=== PATIENT | male | born 1960 | race Caucasian/White ===

== ENCOUNTER 2020-05-12 16:24 | Emergency (ER) | payer OTHER, MEDICAID, SELFPAY ==
[2020-05-12] VITALS (16 sets, daily range): BP systolic 97–132; BP diastolic 56–75; PULSE 63–86; RESP 10–25; TEMP 36.9; O2SAT 94–99; BMI 19.0
[2020-05-12 17:02] LABS: Bacteria Urine None Seen; RBC Urine None Seen (0-5/HPF); WBC Urine None Seen (0-5/HPF)
[2020-05-12 17:04] LABS: Appearance Urine UA CLEAR; Bilirubin Urine UA NEGATIVE (NEGATIVE); Color Urine UA YELLOW; Glucose Urine UA 3+ g/dL (Negative); Ketones Urine UA TRACE (NEGATIVE); Leukocyte Esterase Urine UA NEGATIVE (NEGATIVE); Nitrite Urine UA NEGATIVE (Negative); Occult Blood Urine UA NEGATIVE (Negative); Protein Urine UA NEGATIVE (Negative); Specific Gravity Urine UA <=1.005 (1.000-1.035); Urobilinogen Urine UA 0.2 E.U./dL (0.2)
--- NOTE | 2020-05-12 17:11 | PC.NURSE ---
Glucose was greater than 500
--- NOTE | 2020-05-12 17:12 | PC.NURSE ---
Glucose was greater than 500 on POC
[2020-05-12 17:19] LABS: Add Manual Diff / Slide Review NO; Basophils Absolute Auto 0 /uL (0-100); Basophils Percent Auto 0.7 % (0-2); Eosinophils Absolute Auto 0 /uL (0-450); Eosinophils Percent Auto 0.4 % (2-4); Hematocrit 35.6 % (41-53); Hemoglobin 12.1 g/dL (13.5-17.5); Lymphocytes Absolute Auto 1400 /uL (1100-4500); Lymphocytes Percent Auto 24.3 % (25-40); Mean Corpuscular HGB Conc 33.9 % (30-36); Mean Corpuscular Hemoglobin 34.1 PG (26-34); Mean Corpuscular Volume 100.6 fL (80-100); Monocytes Absolute Auto 600 /uL (0-900); Monocytes Percent Auto 9.9 % (3-14); Neutrophils Absolute Auto 3800 /uL (1500-7000); Neutrophils Percent Auto 64.7 % (50-75); Platelet Count 219 X10^3/uL (150-400); Red Blood Cell Count 3.54 X10^6/uL (4.5-5.9); Red Cell Distribution Width 13.7 % (11.6-14.8); White Blood Cell Count 5.8 X10^3/uL (4.5-11.0)
--- NOTE | 2020-05-12 17:19 | ED_ITS ---
HPI - General Adult General Chief complaint: Diabetic Problem Stated complaint: states high blood surgar Time Seen by Provider: 05/12/20 16:52 Source: patient Mode of arrival: Ambulatory Limitations: no limitations History of Present Illness HPI narrative: Patient is a 59-year-old diabetic male presenting with hyper glycemia. He had blood work done with his PCP he was at the [facility] when he received a phone call stating he go to the emergency department. His glucose at that time was 650 think about yesterday. He says that he has had a 45 lb weight loss over the last 2 years he is having polydipsia as well. He states that he is also eating a significant amount with out being able to keep any weight on. He says he is also short of breath will going upstairs, that is slightly from his legs being swollen he just gets weak and tired. He denies any chest pain he has no fever. He denies any productive cough Related Data Home Medications Medication Instructions Recorded Confirmed furosemide 20 mg PO QAM 05/12/20 05/12/20 glipizide 5 mg PO QAM 05/12/20 05/12/20 metformin 500 mg PO QID 05/12/20 05/12/20 nystatin 5 ml PO TID 05/12/20 05/12/20 potassium chloride 10 meq PO QAM 05/12/20 05/12/20 Allergies Allergy/AdvReac Type Severity Reaction Status Date / Time Tetanus Vaccines and Toxoid Allergy Unknown Verified 05/12/20 17:19 Review of Systems Review of Systems ROS Unobtainable: All systems reviewed & are unremarkable except as noted in HPI and below Constitutional Constitutional: Reports as per HPI, Denies anorexia, Denies frequent falls, Denies poor appetite, Denies weight gain and Reports weight loss Eyes Eyes: Denies change in vision, Denies eye discharge, Denies irritation and Denies loss of vision ENT Ears, Nose, Mouth, and Throat: Denies change in voice, Denies neck pain and Denies sore throat Cardiovascular Cardiovascular: Denies chest pain, Denies chest pain at rest, Reports dyspnea on exertion and Denies orthopnea Respiratory Respiratory: Denies cough and Reports dyspnea on exertion Gastrointestinal Gastrointestinal: Denies abdominal pain, Denies change in bowel habits, Denies diarrhea, Denies nausea and Denies vomiting Musculoskeletal Musculoskeletal: Denies back pain, Denies myalgias and Denies neck pain Integumentary/Breasts Skin/Breast: Denies pruritus, Denies erythema, Denies rash and Denies wounds Neurologic Neurologic: Denies frequent falls and Denies loss of vision Patient History Medical History Smoker (Acute) Type 2 diabetes mellitus (Acute) Social History Smoking Status: Current every day smoker Smoking Status: Current every day smoker Exam Initial Vital Signs Initial Vital Signs: Vital Signs Temperature 98.4 F 05/12/20 16:45 Pulse Rate 86 05/12/20 16:45 Respiratory Rate 16 05/12/20 16:45 Blood Pressure 105/58 L 05/12/20 16:45 Pulse Oximetry 95 05/12/20 16:45 GENERAL: Cachectic appearing male and in no acute distress. HEENT: Head atraumatic,EOMI, pupils reactive, face symmetric, moist mucous membranes CARDIOVASCULAR: Regular rate and rhythm without murmurs, rubs or gallops. RESPIRATORY: Breath sounds equal bilaterally, no wheezes rales or rhonchi. ABDOMEN: Soft, nontender. Normoactive bowel sounds all 4 quadrants. No guarding or rebound. No hepato or splenomegaly EXTREMITIES: Normal range of motion, no clubbing. Non pitting lower extremity edema bilateral Neurovascularly intact NEUROLOGICAL: Alert and oriented x4.Normal gait and speech. SKIN: Warm, dry, no laceration, no petechiae, no rashes or lesions. Course Orders Ordered: Discontinued Medications Sodium Chloride (Normal Saline 0.9%) 1,000 mls @ 1,000 mls/hr IV BOLUS ONE Stop: 05/12/20 18:11 Last Infusion: 05/12/20 21:08 Dose: 0 mls/hr Documented by: Admin: 05/12/20 17:22 Dose: 250 mls/hr Documented by: EZIO Insulin Human Regular (Humulin R) 10 unit SUBCUT NOW ONE Stop: 05/12/20 18:26 Last Admin: 05/12/20 18:32 Dose: 10 unit Documented by: MORRO Cosigned by: CHRISTEL Vital Signs Vital signs: Vital Signs - 8 hr 05/12/20 16:45 05/12/20 17:21 05/12/20 17:30 Temperature 98.4 F Pulse Rate 86 77 77 Respiratory Rate 16 12 14 Blood Pressure 105/58 L Pulse Oximetry 95 96 94 Medical Decision Making Lab Data Lab results reviewed: Yes I reviewed the patient's lab results. Result diagrams: 05/12/20 17:09 05/12/20 17:09 Labs: Lab Results 05/12/20 05/12/20 05/12/20 Range/Units 16:55 17:09 17:09 WBC 5.8 (4.5-11.0) X10^3/uL RBC 3.54 L (4.5-5.9) X10^6/uL Hgb 12.1 L (13.5-17.5) g/dL Hct 35.6 L (41-53) % MCV 100.6 H (80-100) fL MCH 34.1 H (26-34) PG MCHC 33.9 (30-36) % RDW 13.7 (11.6-14.8) % Plt Count 219 (150-400) X10^3/uL Neut % (Auto) 64.7 (50-75) % Lymph % (Auto) 24.3 L (25-40) % [place] % (Auto) 9.9 (3-14) % Eos % (Auto) 0.4 L (2-4) % Baso % (Auto) 0.7 (0-2) % Neut # (Auto) 3800 (0466-2885) /uL Lymph # (Auto) 1400 (3161-8558) /uL [place] # (Auto) 600 (0-900) /uL Eos # (Auto) 0 (0-450) /uL Baso # (Auto) 0 (0-100) /uL D-Dimer (<230) ng/mL VBG pH (7.33-7.43) VBG pCO2 (45-50) mmHg VBG pO2 (35-45) mmHg VBG HCO3 (23-28) mmol/L VBG Total CO2 (24-29) mmol/L VBG O2 Saturation (70-75) % VBG Base Excess (0-4) mmol/L Sodium 125 L (137-145) mmol/L Potassium 3.6 (3.4-5.1) mmol/L Chloride 87 L (98-107) mmol/L Carbon Dioxide 26 (22-32) mmol/L BUN 18 (9-20) mg/dL Creatinine 0.43 L (0.66-1.25) mg/dL Estimated GFR > 60.0 (>60) mL/min BUN/Creatinine Ratio 41.9 H (6-22) Glucose 775 H* (70-100) mg/dL Hemoglobin A1c (4.0-6.0) % Lactate (0.7-2.1) mmol/L Calcium 8.8 (8.4-10.2) mg/dL Total Bilirubin 0.7 (0.2-1.3) mg/dL AST 55 (17-59) IU/L ALT 60 H (<50) IU/L Alkaline Phosphatase 514 H (38-126) U/L Total Creatine Kinase (55-170) U/L CK-MB (CK-2) CK-MB (CK-2) Rel Index Troponin I (0.01-0.034) ng/mL NT-Pro-B Natriuret Pep (<125) pg/mL Total Protein 5.6 L (6.3-8.2) g/dL Albumin 3.1 L (3.5-5.0) g/dL Globulin 2.5 (1.7-4.1) g/dL Albumin/Globulin Ratio 1.2 (1.0-2.8) Lipase (23-300) U/L Procalcitonin (<0.5) ng/mL Urine Color Yellow Urine Appearance Clear Urine pH 6.0 (4.5-8.0) Ur Specific [place] <=1.005 (1.000-1.035) Urine Protein Negative (Negative) Urine Glucose (UA) 3+ H (Negative) g/dL Urine Ketones Trace H (NEGATIVE) Urine Occult Blood Negative (Negative) Urine Nitrate Negative (Negative) Urine Bilirubin Negative (NEGATIVE) Urine Urobilinogen 0.2 (0.2) E.U./dL Ur Leukocyte Esterase Negative (NEGATIVE) Urine RBC None seen (0-5/HPF) Urine WBC None seen (0-5/HPF) Ur Squamous Epith Cells 0-1 /hpf (0-5/HPF) Urine Bacteria None seen (None) Ur Culture Indicated? Cult not indicated Ketones 1.89 H (<0.27) mmol/L 05/12/20 05/12/2020 Range/Units 17:09 17:09 17:09 WBC (4.5-11.0) X10^3/uL RBC (4.5-5.9) X10^6/uL Hgb (13.5-17.5) g/dL Hct (41-53) % MCV (80-100) fL MCH (26-34) PG MCHC (30-36) % RDW (11.6-14.8) % Plt Count (150-400) X10^3/uL Neut % (Auto) (50-75) % Lymph % (Auto) (25-40) % [place] % (Auto) (3-14) % Eos % (Auto) (2-4) % Baso % (Auto) (0-2) % Neut # (Auto) (6552-8686) /uL Lymph # (Auto) (1573-6014) /uL [place] # (Auto) (0-900) /uL Eos # (Auto) (0-450) /uL Baso # (Auto) (0-100) /uL D-Dimer (<230) ng/mL VBG pH (7.33-7.43) VBG pCO2 (45-50) mmHg VBG pO2 (35-45) mmHg VBG HCO3 (23-28) mmol/L VBG Total CO2 (24-29) mmol/L VBG O2 Saturation (70-75) % VBG Base Excess (0-4) mmol/L Sodium (137-145) mmol/L Potassium (3.4-5.1) mmol/L Chloride (98-107) mmol/L Carbon Dioxide (22-32) mmol/L BUN (9-20) mg/dL Creatinine (0.66-1.25) mg/dL Estimated GFR (>60) mL/min BUN/Creatinine Ratio (6-22) Glucose (70-100) mg/dL Hemoglobin A1c (4.0-6.0) % Lactate 0.8 (0.7-2.1) mmol/L Calcium (8.4-10.2) mg/dL Total Bilirubin (0.2-1.3) mg/dL AST (17-59) IU/L ALT (<50) IU/L Alkaline Phosphatase (38-126) U/L Total Creatine Kinase (55-170) U/L CK-MB (CK-2) CK-MB (CK-2) Rel Index Troponin I (0.01-0.034) ng/mL NT-Pro-B Natriuret Pep 221 H (<125) pg/mL Total Protein (6.3-8.2) g/dL Albumin (3.5-5.0) g/dL Globulin (1.7-4.1) g/dL Albumin/Globulin Ratio (1.0-2.8) Lipase 384 H (23-300) U/L Procalcitonin 0.18 (<0.5) ng/mL Urine Color Urine Appearance Urine pH (4.5-8.0) Ur Specific [place] (1.000-1.035) Urine Protein (Negative) Urine Glucose (UA) (Negative) g/dL Urine Ketones (NEGATIVE) Urine Occult Blood (Negative) Urine Nitrate (Negative) Urine Bilirubin (NEGATIVE) Urine Urobilinogen (0.2) E.U./dL Ur Leukocyte Esterase (NEGATIVE) Urine RBC (0-5/HPF) Urine WBC (0-5/HPF) Ur Squamous Epith Cells (0-5/HPF) Urine Bacteria (None) Ur Culture Indicated? Ketones (<0.27) mmol/L 05/12/20 05/12/20 05/12/20 Range/Units 17:09 17:09 17:09 WBC (4.5-11.0) X10^3/uL RBC (4.5-5.9) X10^6/uL Hgb (13.5-17.5) g/dL Hct (41-53) % MCV (80-100) fL MCH (26-34) PG MCHC (30-36) % RDW (11.6-14.8) % Plt Count (150-400) X10^3/uL Neut % (Auto) (50-75) % Lymph % (Auto) (25-40) % [place] % (Auto) (3-14) % Eos % (Auto) (2-4) % Baso % (Auto) (0-2) % Neut # (Auto) (5889-7600) /uL Lymph # (Auto) (3667-7132) /uL [place] # (Auto) (0-900) /uL Eos # (Auto) (0-450) /uL Baso # (Auto) (0-100) /uL D-Dimer < 200 (<230) ng/mL VBG pH 7.45 H (7.33-7.43) VBG pCO2 45.2 (45-50) mmHg VBG pO2 52 H (35-45) mmHg VBG HCO3 32 H (23-28) mmol/L VBG Total CO2 33 H (24-29) mmol/L VBG O2 Saturation 95 H (70-75) % VBG Base Excess 8.0 H (0-4) mmol/L Sodium (137-145) mmol/L Potassium (3.4-5.1) mmol/L Chloride (98-107) mmol/L Carbon Dioxide (22-32) mmol/L BUN (9-20) mg/dL Creatinine (0.66-1.25) mg/dL Estimated GFR (>60) mL/min BUN/Creatinine Ratio (6-22) Glucose (70-100) mg/dL Hemoglobin A1c (4.0-6.0) % Lactate (0.7-2.1) mmol/L Calcium (8.4-10.2) mg/dL Total Bilirubin (0.2-1.3) mg/dL AST (17-59) IU/L ALT (<50) IU/L Alkaline Phosphatase (38-126) U/L Total Creatine Kinase 64 (55-170) U/L CK-MB (CK-2) TNP CK-MB (CK-2) Rel Index TNP Troponin I < 0.012 (0.01-0.034) ng/mL NT-Pro-B Natriuret Pep (<125) pg/mL Total Protein (6.3-8.2) g/dL Albumin (3.5-5.0) g/dL Globulin (1.7-4.1) g/dL Albumin/Globulin Ratio (1.0-2.8) Lipase (23-300) U/L Procalcitonin (<0.5) ng/mL Urine Color Urine Appearance Urine pH (4.5-8.0) Ur Specific [place] (1.000-1.035) Urine Protein (Negative) Urine Glucose (UA) (Negative) g/dL Urine Ketones (NEGATIVE) Urine Occult Blood (Negative) Urine Nitrate (Negative) Urine Bilirubin (NEGATIVE) Urine Urobilinogen (0.2) E.U./dL Ur Leukocyte Esterase (NEGATIVE) Urine RBC (0-5/HPF) Urine WBC (0-5/HPF) Ur Squamous Epith Cells (0-5/HPF) Urine Bacteria (None) Ur Culture Indicated? Ketones (<0.27) mmol/L 05/12/20 Range/Units 17:25 WBC (4.5-11.0) X10^3/uL RBC (4.5-5.9) X10^6/uL Hgb (13.5-17.5) g/dL Hct (41-53) % MCV (80-100) fL MCH (26-34) PG MCHC (30-36) % RDW (11.6-14.8) % Plt Count (150-400) X10^3/uL Neut % (Auto) (50-75) % Lymph % (Auto) (25-40) % [place] % (Auto) (3-14) % Eos % (Auto) (2-4) % Baso % (Auto) (0-2) % Neut # (Auto) (6300-2228) /uL Lymph # (Auto) (9696-9139) /uL [place] # (Auto) (0-900) /uL Eos # (Auto) (0-450) /uL Baso # (Auto) (0-100) /uL D-Dimer (<230) ng/mL VBG pH (7.33-7.43) VBG pCO2 (45-50) mmHg VBG pO2 (35-45) mmHg VBG HCO3 (23-28) mmol/L VBG Total CO2 (24-29) mmol/L VBG O2 Saturation (70-75) % VBG Base Excess (0-4) mmol/L Sodium (137-145) mmol/L Potassium (3.4-5.1) mmol/L Chloride (98-107) mmol/L Carbon Dioxide (22-32) mmol/L BUN (9-20) mg/dL Creatinine (0.66-1.25) mg/dL Estimated GFR (>60) mL/min BUN/Creatinine Ratio (6-22) Glucose (70-100) mg/dL Hemoglobin A1c > 14.0 H (4.0-6.0) % Lactate (0.7-2.1) mmol/L Calcium (8.4-10.2) mg/dL Total Bilirubin (0.2-1.3) mg/dL AST (17-59) IU/L ALT (<50) IU/L Alkaline Phosphatase (38-126) U/L Total Creatine Kinase (55-170) U/L CK-MB (CK-2) CK-MB (CK-2) Rel Index Troponin I (0.01-0.034) ng/mL NT-Pro-B Natriuret Pep (<125) pg/mL Total Protein (6.3-8.2) g/dL Albumin (3.5-5.0) g/dL Globulin (1.7-4.1) g/dL Albumin/Globulin Ratio (1.0-2.8) Lipase (23-300) U/L Procalcitonin (<0.5) ng/mL Urine Color Urine Appearance Urine pH (4.5-8.0) Ur Specific [place] (1.000-1.035) Urine Protein (Negative) Urine Glucose (UA) (Negative) g/dL Urine Ketones (NEGATIVE) Urine Occult Blood (Negative) Urine Nitrate (Negative) Urine Bilirubin (NEGATIVE) Urine Urobilinogen (0.2) E.U./dL Ur Leukocyte Esterase (NEGATIVE) Urine RBC (0-5/HPF) Urine WBC (0-5/HPF) Ur Squamous Epith Cells (0-5/HPF) Urine Bacteria (None) Ur Culture Indicated? Ketones (<0.27) mmol/L Point of Care Testing Glucose POC 480 Point of care testing: Point of Care Testing Glucose POC 480 Imaging Data Chest x-ray: Radiologist's Impression: PROCEDURE: XR CHEST 1V INDICATIONS: sob TECHNIQUE: One view of the chest was acquired. COMPARISON: None. FINDINGS: Surgical changes and devices: None. Lungs and pleura: There is hyperinflation of the lungs with flattening of the hemidiaphragms compatible with COPD. No acute consolidation. A few clustered peripheral opacities in the right lateral costophrenic angle likely represents scarring or atelectasis. No pleural effusions or pneumothorax. Mediastinum: Mediastinal contours appear normal. Heart size is normal. Bones and chest wall: No suspicious bony lesions. Overlying soft tissues appear unremarkable. IMPRESSION: 1. Findings compatible with COPD without acute consolidation. Dictated by: Vaughn Scott M.D. on 05/12/2020 at 17:50 ECG Data Attestation: I personally reviewed and interpreted this ECG as follows: Prior ECG tracings: not available for review Interpretation: Normal sinus rhythm rate 76 p.r. interval 170 QRS [address] changes no T-wave inversion MDM Narrative Medical decision making narrative: Patient is sodium is corrected for hyperglycemia (136). This is likely chronic he shows no signs of DKA his pH is 7.4 he does have ketones. He has extremely elevated hemoglobin A1c greater than 14 which is likely chronic uncontrolled diabetes. I discussed case with hospitalist Dr. Contreras who is happy to evaluate patient and recommend Lantus dose. Patient actually has Lantus prescription waiting for him from his PCP. Ben recommends subcu insulin to help bring down his glucose, and close follow-up. Patient's D-dimer is negative and BNP is low. No masses are seen on chest x- ray. 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 Please take and fill your prescriptions as her PCP has recommended and follow up closely with them. *Continue to take medications as directed *Follow up with your primary care provider in 2-3 days *Return to ER if you should have abdominal pain nausea vomiting increased pain or any new, worsening or concerning symptoms Prescriptions: No Action nystatin 100,000 unit/mL suspension 5 ml PO TID RF: 0 potassium chloride 10 mEq capsule, extended release 10 meq PO QAM RF: 0 furosemide 20 mg tablet 20 mg PO QAM RF: 0 metformin 500 mg tablet extended release 24 hr 500 mg PO QID RF: 0 glipizide 5 mg tablet 5 mg PO QAM RF: 0
[2020-05-12 17:21] LABS: HCO3 VBG 32 mmol/L (23-28); PCO2 VBG 45.2 mmHg (45-50); PO2 VBG 52 mmHg (35-45); Total CO2 VBG 33 mmol/L (24-29)
[2020-05-12] MEDS: SODIUM CHLORIDE 0.9% 1,000 ML 250 ML IV (17:22)
--- NOTE | 2020-05-12 17:31 | PC.NURSE ---
Pt is a life long heavy smoker who states he has developed lower extremity edema over past 1-2 months. His glucose at home has been 'high' per his report. He also states that his provider had him come in because his glucose by lab was > 600. Pt reports increased thirst and increased urination. He states he is hungry all the time but has lost > 40 lbs. Pt is cachectic. He denies chest pain, c/o increased shortness of breath w/ exertion.
[2020-05-12 17:33] LABS: D Dimer < 200 ng/mL (<230)
[2020-05-12 17:37] LABS: Culture Indicated Urine Cult Not Indicated; Squamous Epithelial Cell Urine 0-1 /HPF (0-5/HPF)
[2020-05-12 17:39] LABS: Alanine Aminotransferase 60 IU/L (<50); Albumin 3.1 g/dL (3.5-5.0); Albumin Globulin Ratio 1.2 (1.0-2.8); Alkaline Phosphatase 514 U/L (38-126); Aspartate Aminotransferase 55 IU/L (17-59); BUN Creatinine Ratio 41.9 (6-22); Bilirubin Total 0.7 mg/dL (0.2-1.3); Blood Urea Nitrogen 18 mg/dL (9-20); Calcium 8.8 mg/dL (8.4-10.2); Carbon Dioxide 26 mmol/L (22-32); Chloride 87 mmol/L (98-107); Estimated Glomerular Filt Rate > 60.0 mL/min (>60); Globulin 2.5 g/dL (1.7-4.1); HEMOLYSIS < 15 (0-50); Potassium 3.6 mmol/L (3.4-5.1); Sodium 125 mmol/L (137-145); Total Protein 5.6 g/dL (6.3-8.2)
[2020-05-12 17:40] LABS: Creatine Kinase 64 U/L (55-170); Lactate (Lactic Acid) 0.8 mmol/L (0.7-2.1); Lipase 384 U/L (23-300)
[2020-05-12 17:42] LABS: Hemoglobin A1C% w Est Avg Glu > 14.0 % (4.0-6.0)
[2020-05-12 17:43] LABS: Ketones (Beta-Hydroxybutyrate) 1.89 mmol/L (<0.27)
[2020-05-12 17:48] LABS: Glucose 775 mg/dL (70-100)
[2020-05-12 17:53] LABS: NT-proBNP (BNP-Adult 18+) 221 pg/mL (<125)
[2020-05-12 17:55] LABS: Troponin I < 0.012 ng/mL (0.01-0.034)
[2020-05-12 18:00] LABS: Procalcitonin 0.18 ng/mL (<0.5)
--- NOTE | 2020-05-12 18:30 | PM.CN ---
History of Present Illness Consult details Date Patient Seen: 05/12/20 Time Patient Seen: 18:30 Chief complaint: states high blood surgar Reason for consult: Hypergylcemia Requesting provider: Hailey Ayala Narrative: Oz Bernardo is a 59-year-old male with past medical history type 2 diabetes who presented to the emergency room by the direction of his primary care office when his laboratory findings came back with a glucose in the 700s. The patient has been dealing with elevated blood glucoses for the past few months. And reports in the past few days his glucose has routinely been above 600. The patient is currently on 2 g of metformin daily, glipizide in the morning. He saw his primary care provider yesterday who also prescribed him insulin which he has not picked up yet. He endorses polyuria and polydipsia, as well as significant weight loss over the past few months despite eating a large amount of food and craving sugary meals. He also has had worsening lower extremity edema over the past few months, but this is been stable recently. In the emergency room, initial CBC was unremarkable except for a mild macrocytic anemia with a hemoglobin of 12.1. VBG showed a pH of 4.5, bicarb of 32. Initial chemistry showed a sodium of 125 (corrected for glucose of 775 is normal at 135), chloride of 87, and a creatinine of 0.43. There is no acidosis with a bicarb of 26, and anion gap is 12. His glucose was 775 and his A1c was greater than 14%. Blood ketones were mildly positive at 1.5. Troponin was negative. Procalcitonin is negative. UA showed positive glucose and trace ketones. Patient is cachectic in appearance with lower extremity edema but is able to tolerate oral intake and does not appear clinically dehydrated. Patient is amenable to discharge home with plan for PMD follow-up as previously scheduled. He was already sent a prescription for Lantus which she should start taking tonight if able. Meds Home Medications and Allergies Home Medications Medication Instructions Recorded Confirmed Type furosemide 20 mg PO QAM 05/12/20 05/12/20 History glipizide 5 mg PO QAM 05/12/20 05/12/20 History metformin 500 mg PO QID 05/12/20 05/12/20 History nystatin 5 ml PO TID 05/12/20 05/12/20 History potassium chloride 10 meq PO QAM 05/12/20 05/12/20 History Allergies Allergy/AdvReac Type Severity Reaction Status Date / Time Tetanus Vaccines and Toxoid Allergy Unknown Verified 05/12/20 17:19 Review of Systems Review of Systems Narrative: All other systems reviewed with the patient and are negative unless otherwise stated. Exam Vital Signs (past 8 hours): - 05/12/20 16:45 05/12/20 17:21 05/12/20 17:30 Temperature 98.4 F Pulse Rate 86 77 77 Respiratory Rate 16 12 14 Blood Pressure 105/58 L Pulse Oximetry 95 96 94 05/12/20 17:45 05/12/20 18:00 Temperature Pulse Rate 73 69 Respiratory Rate 16 13 Blood Pressure 102/61 115/60 Pulse Oximetry 95 96 Oxygen Delivery Method Room Air Narrative Exam Narrative: GENERAL APPEARANCE: Cachectic appearing male, in no acute distress. SKIN: Inspection of the skin reveals no rashes, ulcerations or petechiae. Chronic venous changes as noted below of his lower extremities. HEENT: Normocephalic atraumatic, extraocular muscles are intact, oropharynx is clear and mucous membranes are moist, neck is supple without adenopathy NECK: Supple and symmetric. There was no thyroid enlargement, and no tenderness, or masses were felt. CHEST: Normal AP diameter and normal contour without any kyphoscoliosis. LUNGS: Auscultation of the lungs revealed no wheezes, rhonchi, or rales. CARDIOVASCULAR: There was a regular rate and rhythm without any murmurs, gallops, rubs. Peripheral pulses were 2+ and symmetric. ABDOMEN: Soft and nontender with normal bowel sounds. No ascites was noted. MUSCULOSKELETAL: There was no tenderness or effusions noted. Muscle strength and tone were normal. EXTREMITIES: No cyanosis. There is possible clubbing his lower extremities, with significant lower extremity edema with chronic venous stasis changes. NEUROLOGIC: Alert and oriented x 3. Normal affect. Gait was normal. Strength is +5/5 in the Upper Extremities and Lower Extremities Bilaterally. Objective Labs Result Diagrams: 05/12/20 17:09 05/12/20 17:09 Labs: Laboratory Results - last 24 hr 05/12/20 05/12/20 05/12/20 16:55 17:09 17:09 WBC 5.8 RBC 3.54 L Hgb 12.1 L Hct 35.6 L MCV 100.6 H MCH 34.1 H MCHC 33.9 RDW 13.7 Plt Count 219 Neut % (Auto) 64.7 Lymph % (Auto) 24.3 L [place] % (Auto) 9.9 Eos % (Auto) 0.4 L Baso % (Auto) 0.7 Neut # (Auto) 3800 Lymph # (Auto) 1400 [place] # (Auto) 600 Eos # (Auto) 0 Baso # (Auto) 0 D-Dimer VBG pH VBG pCO2 VBG pO2 VBG HCO3 VBG Total CO2 VBG O2 Saturation VBG Base Excess Sodium 125 L Potassium 3.6 Chloride 87 L Carbon Dioxide 26 BUN 18 Creatinine 0.43 L Estimated GFR > 60.0 BUN/Creatinine Ratio 41.9 H Glucose 775 H* Hemoglobin A1c Lactate Calcium 8.8 Total Bilirubin 0.7 AST 55 ALT 60 H Alkaline Phosphatase 514 H Total Creatine Kinase CK-MB (CK-2) CK-MB (CK-2) Rel Index Troponin I NT-Pro-B Natriuret Pep Total Protein 5.6 L Albumin 3.1 L Globulin 2.5 Albumin/Globulin Ratio 1.2 Lipase Procalcitonin Urine Color Yellow Urine Appearance Clear Urine pH 6.0 Ur Specific [place] <=1.005 Urine Protein Negative Urine Glucose (UA) 3+ H Urine Ketones Trace H Urine Occult Blood Negative Urine Nitrate Negative Urine Bilirubin Negative Urine Urobilinogen 0.2 Ur Leukocyte Esterase Negative Urine RBC None seen Urine WBC None seen Ur Squamous Epith Cells 0-1 /hpf Urine Bacteria None seen Ur Culture Indicated? Cult not indicated Ketones 1.89 H 05/12/20 05/12/20 05/12/20 17:09 17:09 17:09 WBC RBC Hgb Hct MCV MCH MCHC RDW Plt Count Neut % (Auto) Lymph % (Auto) [place] % (Auto) Eos % (Auto) Baso % (Auto) Neut # (Auto) Lymph # (Auto) [place] # (Auto) Eos # (Auto) Baso # (Auto) D-Dimer VBG pH VBG pCO2 VBG pO2 VBG HCO3 VBG Total CO2 VBG O2 Saturation VBG Base Excess Sodium Potassium Chloride Carbon Dioxide BUN Creatinine Estimated GFR BUN/Creatinine Ratio Glucose Hemoglobin A1c Lactate 0.8 Calcium Total Bilirubin AST ALT Alkaline Phosphatase Total Creatine Kinase CK-MB (CK-2) CK-MB (CK-2) Rel Index Troponin I NT-Pro-B Natriuret Pep 221 H Total Protein Albumin Globulin Albumin/Globulin Ratio Lipase 384 H Procalcitonin 0.18 Urine Color Urine Appearance Urine pH Ur Specific [place] Urine Protein Urine Glucose (UA) Urine Ketones Urine Occult Blood Urine Nitrate Urine Bilirubin Urine Urobilinogen Ur Leukocyte Esterase Urine RBC Urine WBC Ur Squamous Epith Cells Urine Bacteria Ur Culture Indicated? Ketones 05/12/20 05/12/20 05/12/20 17:09 17:09 17:09 WBC RBC Hgb Hct MCV MCH MCHC RDW Plt Count Neut % (Auto) Lymph % (Auto) [place] % (Auto) Eos % (Auto) Baso % (Auto) Neut # (Auto) Lymph # (Auto) [place] # (Auto) Eos # (Auto) Baso # (Auto) D-Dimer < 200 VBG pH 7.45 H VBG pCO2 45.2 VBG pO2 52 H VBG HCO3 32 H VBG Total CO2 33 H VBG O2 Saturation 95 H VBG Base Excess 8.0 H Sodium Potassium Chloride Carbon Dioxide BUN Creatinine Estimated GFR BUN/Creatinine Ratio Glucose Hemoglobin A1c Lactate Calcium Total Bilirubin AST ALT Alkaline Phosphatase Total Creatine Kinase 64 CK-MB (CK-2) TNP CK-MB (CK-2) Rel Index TNP Troponin I < 0.012 NT-Pro-B Natriuret Pep Total Protein Albumin Globulin Albumin/Globulin Ratio Lipase Procalcitonin Urine Color Urine Appearance Urine pH Ur Specific [place] Urine Protein Urine Glucose (UA) Urine Ketones Urine Occult Blood Urine Nitrate Urine Bilirubin Urine Urobilinogen Ur Leukocyte Esterase Urine RBC Urine WBC Ur Squamous Epith Cells Urine Bacteria Ur Culture Indicated? Ketones 05/12/20 17:25 WBC RBC Hgb Hct MCV MCH MCHC RDW Plt Count Neut % (Auto) Lymph % (Auto) [place] % (Auto) Eos % (Auto) Baso % (Auto) Neut # (Auto) Lymph # (Auto) [place] # (Auto) Eos # (Auto) Baso # (Auto) D-Dimer VBG pH VBG pCO2 VBG pO2 VBG HCO3 VBG Total CO2 VBG O2 Saturation VBG Base Excess Sodium Potassium Chloride Carbon Dioxide BUN Creatinine Estimated GFR BUN/Creatinine Ratio Glucose Hemoglobin A1c > 14.0 H Lactate Calcium Total Bilirubin AST ALT Alkaline Phosphatase Total Creatine Kinase CK-MB (CK-2) CK-MB (CK-2) Rel Index Troponin I NT-Pro-B Natriuret Pep Total Protein Albumin Globulin Albumin/Globulin Ratio Lipase Procalcitonin Urine Color Urine Appearance Urine pH Ur Specific [place] Urine Protein Urine Glucose (UA) Urine Ketones Urine Occult Blood Urine Nitrate Urine Bilirubin Urine Urobilinogen Ur Leukocyte Esterase Urine RBC Urine WBC Ur Squamous Epith Cells Urine Bacteria Ur Culture Indicated? Ketones Assessment & Plan Assessment & Plan narrative: Oz Bernardo is a 51-year-old male with past medical history of diabetes who was been struggling with rising blood glucoses over the past few months. He was sent to the emergency room the direction of his primary care provider for blood glucose in the 700s. Blood glucose is 775 on laboratory evaluation in the emergency room, however there is no anion gap, and no significant acidosis. This may be slightly confounded by the fact that the patient is dehydrated and on Lasix therapy which can cause a metabolic alkalosis. Patient is amenable to management at home, he was provided on Education for hypoglycemic awareness. I also instructed him to continue to write down his blood sugars to help with further titration as an outpatient. He was already prescribed Lantus by his primary care provider which is currently available at his local pharmacy, and he has a follow-up already scheduled. He can call his primary care provider for adjustments in insulin regimen after a couple of days. I would recommend that he get a small amount of regular insulin before leaving the emergency room and a couple of L of fluid, but the patient does not require admission at this time. I further recommend that he stop taking his Lasix until his blood sugars are more adequately controlled as this is likely making him even more dehydrated. I suspect that his cachexia is related to uncontrolled diabetes over the past few months. Starting insulin therapy should not only help to lower his glucose but also help him to regain weight.
[2020-05-12] MEDS: INSULIN REGULAR 100 UNIT/ML 3 ML VIAL 10 UNIT SUBCUT (18:32)
[2020-05-13 10:58] LABS: Oxygen Saturation VBG 88 % (70-75); pH VBG 7.46 (7.33-7.43)
== END 2020-05-12 21:10 | disposition home or self-care (01) ==
PROVIDERS: Emergency Provider Emergency Medicine
DX: E11.65 Type 2 diabetes mellitus with hyperglycemia (principal); R07.9 Chest pain, unspecified
CPT/HCPCS: 36415; 71045; 80053; 81001; 82009; 82550; 82805; 82962; 83036; 83605; 83690; 83880; 84145; 84484; 85025; 85379; 87040; 93005; 96360; 96361; 96372; 99285

== ENCOUNTER 2020-05-15 08:42 | Inpatient (IN) | payer OTHER, MEDICAID, SELFPAY ==
[2020-05-15] VITALS (17 sets, daily range): BP systolic 86–106; BP diastolic 51–64; PULSE 36–80; RESP 14–23; TEMP 36–37; O2SAT 78–100; BMI 18.6; BMI 17.8
--- NOTE | 2020-05-15 09:08 | DI.RAD.S_ITS ---
PROCEDURE: XR HIP W PEL IF DONE LT 2V INDICATIONS: FALL WITH HIP PAIN TECHNIQUE: AP pelvis with lateral view(s) of the left hip(s). COMPARISON: None. FINDINGS: Bones: Minimally displaced intertrochanteric hip fracture seen best on the lateral view. No hip joint dislocation. Pelvic ring appears intact. No suspicious bony lesions. Soft tissues: The visualized bowel gas pattern is normal. No suspicious soft tissue calcifications. IMPRESSION: Minimally displaced left intertrochanteric hip fracture. Dictated by: Maria Victoria Traylor M.D. on 05/15/2020 at 8:52 Approved by: Maria Victoria Traylor M.D. on 05/15/2020 at 8:54
[2020-05-15] MEDS: ONDANSETRON 4 MG/2 ML INJ IV (09:15)
[2020-05-15] MEDS: HYDROMORPHONE 1 MG INJ IV ×4 (09:15→20:38)
--- NOTE | 2020-05-15 09:16 | ED_ITS ---
HPI - Extremity Injury (Lower) General Chief Complaint: Extremity Injury, Lower Stated Complaint: Left Hip Pain Time Seen by Provider: 05/15/20 09:09 Source: patient and EMS Mode of arrival: EMS Limitations: no limitations History of Present Illness HPI Narrative: The patient was walking out of his house prior to arrival, he has 2 concrete steps at the from his house. He slipped, falling onto his left hip on the steps. He was able sit but not stand. He arrives by EMS due to the left hip pain. He also scraped his left jaw and neck. He has an abrasion. He has no headache visual changes, or confusion. He denies neck pain. He has no chest pain or dyspnea. He has no abdominal discomfort. He has no significant initially the upper extremities, or the right leg. He reports no recent illness, no obvious exposure to COVID-19. It is noted he has type 2 diabetes, he reports been transition from oral agents to insulin about 3 days ago. He has lower extremity edema which she blames on his diabetes, he denies cardiac problems, he denies any history of CHF. He knows he has von Willebrand's disease. Related Data Home Medications Medication Instructions Recorded Confirmed furosemide 20 mg PO QAM 05/12/20 05/12/20 glipizide 5 mg PO QAM 05/12/20 05/12/20 metformin 500 mg PO QID 05/12/20 05/12/20 nystatin 5 ml PO TID 05/12/20 05/12/20 potassium chloride 10 meq PO QAM 05/12/20 05/12/20 Allergies Allergy/AdvReac Type Severity Reaction Status Date / Time Tetanus Vaccines and Toxoid Allergy Unknown Verified 05/15/20 09:03 Review of Systems Constitutional Constitutional: Denies chills, Denies fever(s), Denies headache(s) and Denies weakness Comments: No recent illness. Eyes Eyes: Denies change in vision ENT Ears, Nose, Mouth, and Throat: Denies vertigo, Denies dizziness and Denies headache(s) Comments: No ENT complaints. Cardiovascular Cardiovascular: Denies chest pain, Denies syncope, Denies lightheadedness and Denies dyspnea Respiratory Respiratory: Denies cough and Denies dyspnea Gastrointestinal Gastrointestinal: Denies abdominal pain, Denies diarrhea and Denies nausea Genitourinary Comments: No complaints. Musculoskeletal Musculoskeletal: Reports as per HPI Integumentary/Breasts Skin/Breast: Denies pruritus, Denies erythema, Denies rash and Reports wounds (See HPI.) Neurologic Neurologic: Denies confusion, Denies vertigo, Denies dizziness, Denies syncope, Denies headache(s) and Denies weakness Psychiatric Psychiatric: Denies anxiety and Denies confusion Patient History Medical History (Updated 05/15/20 @ 13:26 by Didier Robles MD) Peripheral edema (Acute) Smoker (Acute) Type 2 diabetes mellitus (Acute) Von Willebrand disease (Acute) Social History Smoking Status: Current every day smoker Smoking Status: Current every day smoker Substance Use Type: does not use Exam Initial Vital Signs Initial Vital Signs: Vital Signs Pulse Rate 36 L 05/15/20 09:00 Respiratory Rate 16 05/15/20 09:00 Blood Pressure 99/56 L 05/15/20 09:00 Pulse Oximetry 78 L 05/15/20 09:00 Const General: cooperative and well developed Nutritional Appearance: well nourished [facility] Head: other (Abrasion to the left jaw and left neck.) Face and sinus: face symmetric Mouth: oral mucosae normal Teeth and gingiva: dentition normal Throat: posterior oropharynx normal Eyes General: appearance normal, both eyes and all related structures Eyelids: eyelids normal Conjunctivae: conjunctivae normal Sclera: sclerae normal Pupils: PERRL EOM: EOM intact bilaterally Neck Neck: No lymphadenopathy and No tender Thyroid: thyroid normal Chest Chest: normal inspection of the chest, normal palpation of entire chest wall and No crepitus Resp Effort & Inspection: normal respiratory effort and able to speak in complete sentences Auscultation: clear to auscultation bilaterally Cardio Rate: regular rate Rhythm: regular rhythm Heart Sounds: S1 normal, S2 normal, no click, no gallops, no murmurs and no rubs Pulses: normal peripheral pulses GI Inspection: non-distended Palpation: soft, no hepatosplenomegaly, No guarding, No pulsatile mass and No tender Auscultation: normal bowel sounds Back/Spine/Pelvis Back: normal to inspection Thoracic/Lumbar Spine: thoracic and lumbar spine normal to inspection Skin General: no rashes or lesions noted Neuro General: patient alert, patient oriented x3, gait normal and no focal motor deficits Speech: speech normal Other: Normal motor sensory exam throughout his extremities. Extrem Other: Upper extremities are atraumatic. He has significant tenderness over the a left lateral hip, no obvious deformity. No malrotation lower extremity. The right leg is nontender. Both lower extremities show normal dorsalis pedis pulses. Psych Mental Status: mental status grossly normal Course Course Course Narrative: The patient was given Dilaudid for pain, as evaluation for left hip injury proceeded. Poorly controlled diabetes as well as the hypokalemia are noted. He was started on IV potassium, after discussion with the admitting hospitalist, Dr. Camilo, he was also given oral potassium. The hyperglycemia was discussed, management will await improvement of his potassium level. Dr. Camilo initiated the patient's admission. Dr. Miller provided orthopedic consultation while the patient was still in the ER. Orders Ordered: ED Orders 05/15/20 09:08 XR hip w pel if done LT 2V Stat 05/15/20 09:15 Complete Blood Count AUTO DIFF Stat Comprehensive Metabolic Panel Stat Partial Thromboplastin Time Stat Prothrombin Time INR Stat 05/15/20 09:40 XR chest 1V Stat XR femur LT min 2V Stat Acetaminophen (Tylenol) 650 mg PO Q6HR [place] Al Hydrox/Mg Hydrox/Simethicone (Maalox Plus) 30 ml PO Q6HR PRN PRN Reason: Dyspepsia Antihemophilic/von Willebr. Factors (Humate-P 600 Unit) 3,500 unit IV NOW ONE Stop: 05/16/20 00:00 Antihemophilic/von Willebr. Factors (Humate-P 600 Unit) 1,750 unit IV Q8H [place] Stop: 05/20/20 16:01 Bisacodyl (Dulcolax) 10 mg ME DAILY PRN PRN Reason: Constipation Calcium Carbonate (Tums) 1,000 mg PO Q4HR PRN PRN Reason: Dyspepsia Docusate Sodium (Colace) 100 mg PO BID [place] Hydromorphone HCl (Dilaudid) 1 mg IV Q6HR PRN PRN Reason: Pain, Severe (7-10) Ketorolac Tromethamine (Toradol) 30 mg IV Q6HR PRN PRN Reason: Pain, Mild (1-3) Stop: 05/20/20 11:42 Magnesium Hydroxide (Milk Of Magnesia) 30 ml PO DAILY PRN PRN Reason: Constipation Naloxone HCl (Narcan) 0.2 mg IV Q2MIN PRN PRN Reason: Opiate Reversal Ondansetron HCl (Zofran) 4 mg IV Q8HR PRN PRN Reason: Nausea And Vomiting Oxycodone/Acetaminophen (Percocet 5/325) 1 tab PO Q4HR PRN PRN Reason: Pain, Moderate (4-6) Discontinued Medications Hydromorphone HCl (Dilaudid) 1 mg IV NOW ONE Stop: 05/15/20 09:12 Last Admin: 05/15/20 09:15 Dose: 1 mg Documented by: ANA LILIA Hydromorphone HCl (Dilaudid) 1 mg IV NOW ONE Stop: 05/15/20 09:12 Last Admin: 05/15/20 10:07 Dose: 1 mg Documented by: [place] Potassium Chloride 20 meq/ (Sodium Chloride) 260 mls @ 130 mls/hr IV NOW ONE Stop: 05/15/20 12:16 Last Infusion: 05/15/20 12:56 Dose: 130 mls/hr Documented by: RENE Cosigned by: [place] Admin: 05/15/20 10:35 Dose: 130 mls/hr Documented by: RENE Cosigned by: [place] Ondansetron HCl (Zofran) 4 mg IV NOW ONE Stop: 05/15/20 09:12 Last Admin: 05/15/20 09:15 Dose: 4 mg Documented by: ANA LILIA Potassium Chloride (Potassium Chloride) 40 meq PO NOW ONE Stop: 05/15/20 10:17 Last Admin: 05/15/20 10:36 Dose: 40 meq Documented by: RENE Vital Signs Vital signs: Vital Signs - 8 hr 05/15/20 09:00 05/15/20 09:04 05/15/20 10:09 Temperature 97.5 F L Pulse Rate 36 L 80 66 Pulse Rate [Left Dorsalis Pedis] Respiratory Rate 16 18 14 Blood Pressure 99/56 L 99/56 L 100/61 Pulse Oximetry 78 L 93 98 05/15/20 10:10 05/15/20 10:15 Temperature Pulse Rate 65 Pulse Rate [Left Dorsalis Pedis] 62 Respiratory Rate 16 Blood Pressure 100/61 Pulse Oximetry 91 MDM - Extremity Injury (Lower) Lab Data Result diagrams: 05/15/20 09:15 05/15/20 09:15 Labs: Lab Results 05/15/20 05/15/20 05/15/20 Range/Units 09:15 09:15 09:15 WBC 7.2 (4.5-11.0) X10^3/uL RBC 3.89 L (4.5-5.9) X10^6/uL Hgb 12.9 L (13.5-17.5) g/dL Hct 38.0 L (41-53) % MCV 97.7 (80-100) fL MCH 33.2 (26-34) PG MCHC 33.9 (30-36) % RDW 13.8 (11.6-14.8) % Plt Count 259 (150-400) X10^3/uL Neut % (Auto) 50.0 (50-75) % Lymph % (Auto) 42.0 H (25-40) % [place] % (Auto) 7.3 (3-14) % Eos % (Auto) 0.2 L (2-4) % Baso % (Auto) 0.5 (0-2) % Neut # (Auto) 3600 (1484-2363) /uL Lymph # (Auto) 3000 (5435-7882) /uL [place] # (Auto) 500 (0-900) /uL Eos # (Auto) 0 (0-450) /uL Baso # (Auto) 0 (0-100) /uL PT 9.4 L (10.1-12.7) SECONDS INR 0.8 L (0.9-1.3) APTT 35 (26.4-36.2) SECONDS Sodium 131 L (137-145) mmol/L Potassium 2.9 L (3.4-5.1) mmol/L Chloride 92 L (98-107) mmol/L Carbon Dioxide 35 H (22-32) mmol/L BUN 14 (9-20) mg/dL Creatinine 0.34 L (0.66-1.25) mg/dL Estimated GFR > 60.0 (>60) mL/min BUN/Creatinine Ratio 41.2 H (6-22) Glucose 322 H D (70-100) mg/dL Calcium 8.8 (8.4-10.2) mg/dL Total Bilirubin 0.7 (0.2-1.3) mg/dL AST 57 (17-59) IU/L ALT 51 H (<50) IU/L Alkaline Phosphatase 316 H (38-126) U/L Total Protein 6.1 L (6.3-8.2) g/dL Albumin 3.3 L (3.5-5.0) g/dL Globulin 2.8 (1.7-4.1) g/dL Albumin/Globulin Ratio 1.2 (1.0-2.8) Imaging Data Chest x-ray: Radiologist's Impression: [address] [address] XRay Report Signed Patient: Oz Bernardo FMR#: [id number] : 1960cct:[id number] Age/Sex: 59 / MDate of Service: 05/15/20 Loc: [place] [address] Accession Number: [id number] Procedure: XR chest 1V Ordering Provider: Didier Robles MD PROCEDURE: XR CHEST 1V INDICATIONS: Fall. Left hip fracture. TECHNIQUE: One view of the chest was acquired. COMPARISON: [facility], , XR CHEST 1V, 05/12/2020, 17:30. FINDINGS: Surgical changes and devices: None. Lungs and pleura: Lungs are hyperinflated, hyperlucent, but clear. No pleural effusions or pneumothorax. Mediastinum: Mediastinal contours appear normal. Heart size is normal. Bones and chest wall: No suspicious bony lesions. Overlying soft tissues appear unremarkable. IMPRESSION: Findings suggestive of asthma/emphysema. Dictated by: Maria Victoria Traylor M.D. on 05/15/2020 at 9:55 Approved by: Maria Victoria Traylor M.D. on 05/15/2020 at 9:56 Pelvis/left hip x-ray:: Radiologist's Impression: [address] [address] XRay Report Signed Patient: Oz Bernardo FMR#: [id number] : 1Acct:[id number] Age/Sex: 59 / MDate of Service: 05/15/20 Loc: ED Accession Number: [id number] Procedure: XR hip w pel if done LT 2V Ordering Provider: Didier Robles MD PROCEDURE: XR HIP W PEL IF DONE LT 2V INDICATIONS: FALL WITH HIP PAIN TECHNIQUE: AP pelvis with lateral view(s) of the left hip(s). COMPARISON: None. FINDINGS: Bones: Minimally displaced intertrochanteric hip fracture seen best on the lateral view. No hip joint dislocation. Pelvic ring appears intact. No suspicious bony lesions. Soft tissues: The visualized bowel gas pattern is normal. No suspicious soft tissue calcifications. IMPRESSION: Minimally displaced left intertrochanteric hip fracture. Dictated by: Maria Victoria Traylor M.D. on 05/15/2020 at 8:52 Approved by: Maria Victoria Traylor M.D. on 05/15/2020 at 8:54 Left femur x-ray: Radiologist's Impression: Left femur x-ray again demonstrates the subtrochanteric fracture, no additional fractures are seen. Discharge Plan Departure Patient Disposition: Admitted As Inpatient Clinical Impression: Closed fracture of left hip, Von Willebrand disease, Type 2 diabetes mellitus, Acute hypokalemia Admit Date/Time: 05/15/20 10:37 Admit Provider: Randa Camilo
[2020-05-15 09:20] LABS: Add Manual Diff / Slide Review NO; Basophils Absolute Auto 0 /uL (0-100); Basophils Percent Auto 0.5 % (0-2); Eosinophils Absolute Auto 0 /uL (0-450); Eosinophils Percent Auto 0.2 % (2-4); Hemoglobin 12.9 g/dL (13.5-17.5); Lymphocytes Absolute Auto 3000 /uL (1100-4500); Mean Corpuscular HGB Conc 33.9 % (30-36); Mean Corpuscular Hemoglobin 33.2 PG (26-34); Mean Corpuscular Volume 97.7 fL (80-100); Monocytes Absolute Auto 500 /uL (0-900); Monocytes Percent Auto 7.3 % (3-14); Neutrophils Absolute Auto 3600 /uL (1500-7000); Platelet Count 259 X10^3/uL (150-400); Red Blood Cell Count 3.89 X10^6/uL (4.5-5.9); Red Cell Distribution Width 13.8 % (11.6-14.8); White Blood Cell Count 7.2 X10^3/uL (4.5-11.0)
[2020-05-15 09:21] LABS: INR 0.8 (0.9-1.3); Prothrombin Time 9.4 SECONDS (10.1-12.7)
[2020-05-15 09:24] LABS: PTT Partial Thromboplastin Tim 35 SECONDS (26.4-36.2)
[2020-05-15 09:25] LABS: Alanine Aminotransferase 51 IU/L (<50); Albumin 3.3 g/dL (3.5-5.0); Albumin Globulin Ratio 1.2 (1.0-2.8); Alkaline Phosphatase 316 U/L (38-126); Aspartate Aminotransferase 57 IU/L (17-59); BUN Creatinine Ratio 41.2 (6-22); Bilirubin Total 0.7 mg/dL (0.2-1.3); Blood Urea Nitrogen 14 mg/dL (9-20); Calcium 8.8 mg/dL (8.4-10.2); Carbon Dioxide 35 mmol/L (22-32); Chloride 92 mmol/L (98-107); Estimated Glomerular Filt Rate > 60.0 mL/min (>60); Globulin 2.8 g/dL (1.7-4.1); Glucose 322 mg/dL (70-100); HEMOLYSIS < 15 (0-50); Potassium 2.9 mmol/L (3.4-5.1); Sodium 131 mmol/L (137-145); Total Protein 6.1 g/dL (6.3-8.2)
--- NOTE | 2020-05-15 09:40 | DI.RAD.S_ITS ---
PROCEDURE: XR FEMUR LT MIN 2V INDICATIONS: Left hip fracture TECHNIQUE: Two views of the femur were acquired. COMPARISON: None. FINDINGS: Bones: Intertrochanteric left hip fracture is less well seen on the current study. No other femur fractures are identified. The hip and knee joint appear grossly aligned.. No suspicious bony lesions. Soft tissues: No suspicious soft tissue calcifications or masses. IMPRESSION: Nondisplaced intertrochanteric proximal femur fracture is not well seen on the current study. No other femur fractures. Dictated by: Maria Victoria Traylor M.D. on 05/15/2020 at 9:56 Approved by: Maria Victoria Traylor M.D. on 05/15/2020 at 9:59
--- NOTE | 2020-05-15 09:40 | DI.RAD.S_ITS ---
PROCEDURE: XR CHEST 1V INDICATIONS: Fall. Left hip fracture. TECHNIQUE: One view of the chest was acquired. COMPARISON: [facility], , XR CHEST 1V, 05/12/2020, 17:30. FINDINGS: Surgical changes and devices: None. Lungs and pleura: Lungs are hyperinflated, hyperlucent, but clear. No pleural effusions or pneumothorax. Mediastinum: Mediastinal contours appear normal. Heart size is normal. Bones and chest wall: No suspicious bony lesions. Overlying soft tissues appear unremarkable. IMPRESSION: Findings suggestive of asthma/emphysema. Dictated by: Maria Victoria Traylor M.D. on 05/15/2020 at 9:55 Approved by: Maria Victoria Traylor M.D. on 05/15/2020 at 9:56
[2020-05-15] MEDS: POTASSIUM CHLORIDE 20 MEQ in SODIUM CHLORIDE 0.9% 250 ML 130 ML IV (10:35)
[2020-05-15] MEDS: POTASSIUM CHLORIDE 20 MEQ/15 ML UDC 40 MEQ PO ×2 (10:36→21:51)
--- NOTE | 2020-05-15 10:37 | PM.CN ---
History of Present Illness Consult details Date Patient Seen: 05/15/20 Time Patient Seen: 10:39 Chief complaint: Left Hip Pain Reason for consult: Left hip fracture Requesting provider: Didier Robles Narrative: The patient is a debilitated 59-year-old gentleman with a history of type 2 diabetes mellitus for which he just started insulin and von Willebrand's disease. He was staying at a friend's house in [place] when he slipped and fell down a short flight of stairs landing on his left hip sustaining a left intertrochanteric fracture. The patient reports that even when he has a tooth extraction he bleeds extensively because of his hemophilia. Meds Home Medications and Allergies Home Medications Medication Instructions Recorded Confirmed Type furosemide 20 mg PO QAM 05/12/20 05/12/20 History glipizide 5 mg PO QAM 05/12/20 05/12/20 History metformin 500 mg PO QID 05/12/20 05/12/20 History nystatin 5 ml PO TID 05/12/20 05/12/20 History potassium chloride 10 meq PO QAM 05/12/20 05/12/20 History Allergies Allergy/AdvReac Type Severity Reaction Status Date / Time Tetanus Vaccines and Toxoid Allergy Unknown Verified 05/15/20 09:03 Review of Systems Review of Systems Narrative: The patient has recently been upgraded from oral medications to insulin for his diabetes but otherwise has been in his usual state of health. He denies any acute changes. Exam Vital Signs (past 8 hours): - 05/15/20 09:04 05/15/20 10:09 05/15/20 10:10 Temperature 97.5 F L Pulse Rate 80 66 Pulse Rate [Left Dorsalis Pedis] 62 Respiratory Rate 18 14 Blood Pressure 99/56 L 100/61 Pulse Oximetry 93 98 Oxygen Delivery Method Room Air Narrative Exam Narrative: HEENT examination is normocephalic atraumatic. Chest is clear to auscultation. Cardiac exam is regular rate and rhythm. Abdomen is soft nontender with normal bone will bowel sounds. Left lower extremity is painful to move. There is no skin lesion overlying the planned incision. He has a soft calf. He has intact light touch and motion in the left lower extremity. Objective Labs Result Diagrams: 05/15/20 09:15 05/15/20 09:15 Labs: Laboratory Results - last 24 hr 05/15/20 05/15/20 05/15/20 09:15 09:15 09:15 WBC 7.2 RBC 3.89 L Hgb 12.9 L Hct 38.0 L MCV 97.7 MCH 33.2 MCHC 33.9 RDW 13.8 Plt Count 259 Neut % (Auto) 50.0 Lymph % (Auto) 42.0 H Crockett % (Auto) 7.3 Eos % (Auto) 0.2 L Baso % (Auto) 0.5 Neut # (Auto) 3600 Lymph # (Auto) 3000 Crockett # (Auto) 500 Eos # (Auto) 0 Baso # (Auto) 0 PT 9.4 L INR 0.8 L APTT 35 Sodium 131 L Potassium 2.9 L Chloride 92 L Carbon Dioxide 35 H BUN 14 Creatinine 0.34 L Estimated GFR > 60.0 BUN/Creatinine Ratio 41.2 H Glucose 322 H D Calcium 8.8 Total Bilirubin 0.7 AST 57 ALT 51 H Alkaline Phosphatase 316 H Total Protein 6.1 L Albumin 3.3 L Globulin 2.8 Albumin/Globulin Ratio 1.2 Assessment & Plan Assessment & Plan narrative: The patient is a debilitated 59-year-old gentleman with poor blood sugar control having just been transferred insulin from his oral medications. He continues on metformin and glyburide. He is also on Lasix for peripheral edema. He reports a history of von Willebrand's disease. He reports that he has extensive bleeding with dental extractions. The patient has an intertrochanteric hip fracture on radiographs. The plan for the patient is that he will undergo a dynamic hip screw. He will receive replacement factor for his von Willebrand's disease prior to surgery. I have ordered this. I have discussed his medical issues with the hospitalist on duty, they will be addressing his blood sugar. The plan for surgery currently is 8:00 a.m. tomorrow morning provided we can get the von Willebrand's replacement in time. We have ordered a COVID-19 test but it is currently pending. It should be noted that extensive time was required in planning for this patient's surgery and ordering the appropriate replacement factors due to the added complexity of his von Willebrand's disease. Time Spent With Patient Time with patient: 15-24 minutes
[2020-05-15 12:14] LABS: COVID19 -Nasal RAPID Negative (Negative)
[2020-05-15] MEDS: OXYCODONE/ACETAMINOPHEN 5/325 TABLET 1 TAB PO ×3 (13:47→22:10)
[2020-05-15] MEDS: ACETAMINOPHEN 325 MG TABLET 650 MG PO (18:10)
[2020-05-15 19:21] LABS: Magnesium 1.8 mg/dL (1.6-2.3)
[2020-05-15] MEDS: KETOROLAC 30 MG/ML VIAL IV (20:05)
--- NOTE | 2020-05-15 20:33 | P.HP_ITS ---
History of Present Illness History of Present Illness Date Patient Seen: 05/15/20 Time Patient Seen: 20:34 Chief complaint: Left Hip Pain Narrative: Oz Bernardo presented today to the ED for a fall he sustained at a friend's house stating was walking out of his house which has 2 concrete steps from the entrance to the driveway. States he slipped, and fell onto his left hip. He was able sit but not stand. He was brought to the ED by EMS due to the left hip pain. He has abrasions on his left jaw and neck stating he also hit those areas when he fell. He denied headache, visual changes, or loosing consciousness. He denies neck pain, chest pain or dyspnea, abdominal pain. He did state his legs have been swelling significantly since his blood sugars have been very high until recently, and that they felt like logs stating he was dragging his left foot when he fell. He has type 2 diabetes, he reports been transition from oral agents to insulin about 3 days ago and was seen in this ED and consulted on on 05/12. He has lower extremity edema which has worsened since January and he attributes to his diabetes, he denies cardiac problems, he denies any history of CHF. He states he has von Willebrand's disease and bled a lot during a dental procedure. Patient states he has had diabetes for 2 years which was controlled with oral antidiabetics until around January of this year. He states he lost 44 lbs, was urinating all the time. He denies a history of current alcohol use, but quit drinking in December of this year. He continues to smoke a pack of cigarettes/day. His PCP is located at [facility] and he lives in [place], though the two visits to the ED occurred while he was visiting a friend in [facility]. On May 12, he presented to the emergency department at the direction of his primary care office when his laboratory findings resulted with a glucose in the 700s. The patient has been dealing with elevated blood glucoses for the past few months. And reports in the past few days his glucose has routinely been above 600. The patient is currently on 2 g of metformin daily, glipizide in the morning. He saw his primary care provider yesterday who also prescribed him insulin which he has not picked up yet. He endorses polyuria and polydipsia, as well as significant weight loss over the past few months despite eating a large amount of food and craving sugary meals. He also has had worsening lower extremity edema over the past few months, but this is been stable recently. Prior to January, he states his blood sugars averaged about 240. On the May, he was consulted by the hospitalist service who recommended he be administered a small amount of regular insulin before leaving the emerge ncy room and a couple of liters of fluid, but the patient did not require admission at that time. They further recommended that he stop taking his Lasix until his blood sugars are more adequately controlled as this is likely making him even more dehydrated and suspected that his cachexia is related to uncontrolled diabetes over the past few months. Starting insulin therapy should not only help to lower his glucose but also help him to regain weight. Temperature 98.6, blood pressure 86/51, heart rate 72, respiratory rate 18, oxygen saturation of 90% on room air, he weighs 63 kg and has a BMI of 17.8. WBC is 7.2, RBC 3.89, hemoglobin 12.9, hematocrit 38, platelet count 259. Repeat chemistries today indicates a sodium of 131, potassium 3.3, chloride 97, CO2 29, creatinine 0.41, BUN 13, GFR is greater than 60, glucose 299, calcium 8.3, magnesium 1.7, total bilirubin 0.7, AST 57, ALT 51, alk-phos 316, albumin 3.3, and COVID-19 was negative. Patient History Medical History Peripheral edema (Acute) Smoker (Acute) Type 2 diabetes mellitus (Acute) Von Willebrand disease (Acute) Surgical History (Updated 05/15/20 @ 21:08 by SUZANNE Aaron) History of umbilical hernia repair (Acute) Family & Social History Family History (Updated 05/15/20 @ 21:11 by SUZANNE Aaron) Father Stomach cancer Mother COPD (chronic obstructive pulmonary disease) Social History: household members friend(s) Prior Living Arrangements House Safety & Behavioral: Feels Safe in Current Yes Environment Been Physically Hurt or No Threatened By a Person Suicidal Ideation Description None Suicide Plan Description No Plan Tobacco & Substance use: Smoking Status Current every day smoker Smoking packs per day 1ppd alcohol intake Quit 12/2019 Substance Use Type denies Meds Home Medications and Allergies Home Medications Medication Instructions Recorded Confirmed Type furosemide 20 mg PO QAM 05/12/20 05/15/20 History glipizide 10 mg PO QAM 05/12/20 05/15/20 History metformin 1,000 mg PO QID 05/12/20 05/15/20 History nystatin 5 ml PO QID 05/12/20 05/15/20 History potassium chloride 10 meq PO QAM 05/12/20 05/15/20 History Allergies Allergy/AdvReac Type Severity Reaction Status Date / Time Tetanus Vaccines and Toxoid Allergy Unknown Verified 05/15/20 09:03 Review of Systems Review of Systems ROS: Yes All systems reviewed with the patient and are negative except as otherwise documented Exam Vital Signs (past 8 hours): - 05/15/20 13:05 05/15/20 13:35 05/15/20 14:05 Temperature 96.8 F L 97.1 F L 97.0 F L Pulse Rate 67 72 69 Respiratory Rate 18 17 18 Blood Pressure 102/64 91/53 L 99/58 L Pulse Oximetry 98 99 93 05/15/20 14:35 05/15/20 16:00 05/15/20 18:35 Temperature 97.2 F L 98.6 F Pulse Rate 67 72 Respiratory Rate 18 18 Blood Pressure 91/56 L 86/51 L Pulse Oximetry 98 98 98 Oxygen Delivery Method Room Air Oxygen Flow Rate 0 Narrative Exam Narrative: Gen: Alert, oriented, cachectic 59 y.o. male, appears fatigued and older than stated age HEENT: normocephalic, atraumatic, conjunctiva clear, sclera non-icteric, oral mucosa pink and moist Neck: supple, full ROM, no JVD, trachea is midline Resp: Lungs CTA, non-labored breathing CV: RRR, no murmur or rubs Abd: soft, non-tender, normoactive BTs Skin: 3 1-1.5 cm round scabbed over lesions on left jaw and neck, multiple older bruises on both upper and lower arms Neuro: Alert and oriented X 4 w/no focal deficits. Speech clear and coherent. Extremities: 2+ pitting edema of the right LE, left LE retracted Psyche: normal mood and affect. Objective Labs Result Diagrams: 05/15/20 09:15 05/15/20 20:41 Labs: Laboratory Results - last 24 hr 05/15/20 05/15/20 05/15/20 09:15 09:15 09:15 WBC 7.2 RBC 3.89 L Hgb 12.9 L Hct 38.0 L MCV 97.7 MCH 33.2 MCHC 33.9 RDW 13.8 Plt Count 259 Neut % (Auto) 50.0 Lymph % (Auto) 42.0 H Simpson % (Auto) 7.3 Eos % (Auto) 0.2 L Baso % (Auto) 0.5 Neut # (Auto) 3600 Lymph # (Auto) 3000 Simpson # (Auto) 500 Eos # (Auto) 0 Baso # (Auto) 0 PT 9.4 L INR 0.8 L APTT 35 Sodium 131 L Potassium 2.9 L Chloride 92 L Carbon Dioxide 35 H BUN 14 Creatinine 0.34 L Estimated GFR > 60.0 BUN/Creatinine Ratio 41.2 H Glucose 322 H D Calcium 8.8 Magnesium Total Bilirubin 0.7 AST 57 ALT 51 H Alkaline Phosphatase 316 H Total Protein 6.1 L Albumin 3.3 L Globulin 2.8 Albumin/Globulin Ratio 1.2 COVID-19 PCR 05/15/20 05/15/20 09:15 10:53 WBC RBC Hgb Hct MCV MCH MCHC RDW Plt Count Neut % (Auto) Lymph % (Auto) Simpson % (Auto) Eos % (Auto) Baso % (Auto) Neut # (Auto) Lymph # (Auto) Simpson # (Auto) Eos # (Auto) Baso # (Auto) PT INR APTT Sodium Potassium Chloride Carbon Dioxide BUN Creatinine Estimated GFR BUN/Creatinine Ratio Glucose Calcium Magnesium 1.8 Total Bilirubin AST ALT Alkaline Phosphatase Total Protein Albumin Globulin Albumin/Globulin Ratio COVID-19 PCR Negative Assessment & Plan Assessment & Plan narrative: Oz Bernardo with poorly controlled diabetes type 2 and Lane's sy ndrome will be admitted for operative treatment of a left intertrochanteric hip fracture. Diabetes Type 2, currently under control, present on admission -A1c done on May 12 was greater than 14 -On high dose correctional scale, and may require basal dosing. -POC glucose checks achs until midnight, then q 6 hours Left intertrochanteric hip fracture -No pharmacological VTE -Dr. Miller, Orthopedic surgery managing, consult is appreciated -NPO after midnight, carb control diet until then VonWillabrand's syndrome -anithemphilic factors have been ordered by Ortho Probable acute on chronic hyponatremia and hypokalemia -He received IV and oral potassium in the ED -Repeat BMP indicated a sodium of 131 potassium of 3.3 -Started NS w/40 mEq KCL at 75 ml/hour and oral potassium 40 mEq X 1 now -Recheck electrolytes plus magnesium in the am Consults: Dr. Miller, Orthopedic Surgery, consult and involvement is appreciated. Patient is admitted under inpatient status with expected length of stay greater than 2 midnights due to severity of presenting symptoms, risk of adverse event, and complexity of treatment plan. FEN: NS at 75ml/hour with 40 mEq Kcl, Carb control diet, NPO after midnight, BMP and magnesium in the am. VTE prophylaxis: CORBY hose on right leg Dispo: Pt is concerned as to his recovery, he and his son lives in [place], but does not have his home phone number and will provide information on workplace on Sunday. Consideration should be made to having the patient rehab closer to his home. Code Status: Full Code as discussed with patient. COVID-19 COVID-19 status: Negative Result date/Date tested (Pos, Neg/Pending): 05/15/20 Quality VTE Deep Vein Thrombosis/Pulmonary Embolism Present on Admission: No
[2020-05-15 21:09] LABS: BUN Creatinine Ratio 31.7 (6-22); Blood Urea Nitrogen 13 mg/dL (9-20); Calcium 8.3 mg/dL (8.4-10.2); Carbon Dioxide 29 mmol/L (22-32); Chloride 97 mmol/L (98-107); Estimated Glomerular Filt Rate > 60.0 mL/min (>60); Glucose 299 mg/dL (70-100); HEMOLYSIS < 15 (0-50); Magnesium 1.7 mg/dL (1.6-2.3); Potassium 3.3 mmol/L (3.4-5.1); Sodium 131 mmol/L (137-145)
[2020-05-15] MEDS: KCL 40 MEQ IN NS 1,000 ML 75 MEQ IV (21:51)
[2020-05-15] MEDS: INSULIN ASPART 100 UNIT/ML INSULN PEN SUBCUT (21:56)
[2020-05-16] VITALS (26 sets, daily range): BP systolic 81–118; BP diastolic 40–71; PULSE 73–99; RESP 9–20; TEMP 36.1–36.8; O2SAT 91–99
--- NOTE | 2020-05-16 | DI.RAD.S_ITS ---
PROCEDURE: XR HIP W PEL IF DONE LT 2V INDICATIONS: ORIF DHS LEFT HIP TECHNIQUE: 4 fluoroscopic intraoperative images of the left hip COMPARISON: [facility], CR, XR HIP W PEL IF DONE LT 2V, 05/15/2020, 9:02. FINDINGS: Four intraoperative fluoroscopic views of the left hip demonstrate postsurgical changes of screw and plate fixation of the femoral neck. IMPRESSION: Status post open reduction internal fixation of the left femoral neck. Dictated by: Tino Choi M.D. on 05/16/2020 at 9:47 Approved by: Tino Choi M.D. on 05/16/2020 at 9:48
[2020-05-16] MEDS: HYDROMORPHONE 1 MG INJ IV ×4 (00:08→06:58)
[2020-05-16] MEDS: ANTIHEMOPHILIC FACTOR/VWF 600 UNIT VIAL 3664 UNIT IV (00:08)
[2020-05-16 05:23] LABS: Add Manual Diff / Slide Review NO; Basophils Absolute Auto 0 /uL (0-100); Basophils Percent Auto 0.7 % (0-2); Eosinophils Absolute Auto 0 /uL (0-450); Eosinophils Percent Auto 0.6 % (2-4); Hematocrit 29.4 % (41-53); Hemoglobin 10.1 g/dL (13.5-17.5); Lymphocytes Absolute Auto 1800 /uL (1100-4500); Lymphocytes Percent Auto 29.3 % (25-40); Mean Corpuscular HGB Conc 34.3 % (30-36); Mean Corpuscular Hemoglobin 33.6 PG (26-34); Mean Corpuscular Volume 98.1 fL (80-100); Monocytes Absolute Auto 500 /uL (0-900); Monocytes Percent Auto 7.9 % (3-14); Neutrophils Absolute Auto 3800 /uL (1500-7000); Neutrophils Percent Auto 61.5 % (50-75); Platelet Count 173 X10^3/uL (150-400); White Blood Cell Count 6.2 X10^3/uL (4.5-11.0)
[2020-05-16 05:38] LABS: BUN Creatinine Ratio 45.5 (6-22); Blood Urea Nitrogen 15 mg/dL (9-20); Calcium 8.4 mg/dL (8.4-10.2); Carbon Dioxide 31 mmol/L (22-32); Chloride 100 mmol/L (98-107); Estimated Glomerular Filt Rate > 60.0 mL/min (>60); Glucose 251 mg/dL (70-100); HEMOLYSIS < 15 (0-50); Magnesium 1.8 mg/dL (1.6-2.3); Potassium 3.5 mmol/L (3.4-5.1); Sodium 132 mmol/L (137-145)
--- NOTE | 2020-05-16 07:49 | PM.PREOP ---
Pre-operative Note COVID-19 COVID-19 status: Negative Result date/Date tested (Pos, Neg/Pending): 05/15/20 Interval Note History & Physical reviewed/Exam performed by Physician: Yes Changes to H&P: Yes H&P completed within 30 days and has changed as indicated here:: The patient had a drop in hematocrit overnight. He has received his loading dose of von Willebrand's factor and a 2nd dose is available for surgery. We will type and cross him for 2 units of packed red blood cells.
--- NOTE | 2020-05-16 08:07 | PM.OP.1 ---
Operative Date/Time/Diagnoses Date of procedure: 05/16/20 Time of procedure: 09:52 Pre-op diagnosis: Left intertrochanteric hip fracture Post-op diagnosis: same Procedure & Clinicians Procedure: Left hip open reduction internal fixation with dynamic hip screw Same procedure as scheduled: Yes Indications: The patient is a 59-year-old gentleman with brittle diabetes and von Willebrand's disease. He fell early yesterday morning sustaining the above-noted fracture. Surgery has been delayed in order to prepare with von Willebrand's factor. The risks benefits and alternatives of surgery have been discussed with him. Risks discussed included but were not limited to: Failure to achieve pain relief, failure of hardware, excessive bleeding, nerve damage, deep venous thrombosis, pulmonary embolism, stroke, myocardial infarction, permanent paralysis and . Surgeon: Kevin Miller Click Yes if Unassisted: Yes Anesthesia Type: General Operative Notes Findings: Anatomic alignment of fracture and acceptable position of hip screw. Closure Type: primary Specimen(s): none sent Prosthetic devices, grafts, tissues, transplants, or devices: Implants used in this procedure were manufactured by the [employer] and included a 135 degree long barrel 4 hole sideplate, a 120 mm leg screw, and 4 cortical screws. Applied: catheter Estimated Blood Loss (mL): 250 Blood products transfused: none Procedure in detail: The patient was seen in the preoperative area where he confirmed the left hip was the operative site and this was marked with my initials. He had received phone Willebrand's factor concentrate overnight and again this morning. He received preoperative antibiotics. He was taken to the operating room and underwent a general anesthetic on his hospital bed before being transferred to the fracture table. The left leg was placed in the traction leg weir the right leg in the well leg weir. We confirmed adequate visualization and reduction on fluoroscopy in the AP and lateral views. The patient received tranexamic acid in addition to the von Willebrand's factor. The lateral aspect of the left thigh was prepared with ChloraPrep and a vertical adherent drape applied. An approximately 15 cm incision was created overlying the lateral aspect of the proximal femoral shaft and trochanter. This was carried to the fascia lukas which was incised. The fascia of the vastus lateralis was incised. The muscle of the vastus lateralis was bluntly split and elevated using a Blackburn elevator. The appropriate guide was used to place a guide pin in the center of the femoral head on the AP and lateral views. This was measured and appropriate length set for the triple reamer. A 2nd guide pin was placed superiorly to act as an anti rotation pin. The lag screw was then placed. The sideplate was placed over the lag screw and tamped down onto the lateral aspect of the femur. Both guide pins were removed. The cortical screws on the plate were placed sequentially. Fluoroscopy was used to confirm the appropriate position of the fracture and hardware in the AP and lateral views. The wound was irrigated. Closure was obtained with 2 O Vicryl in the fascia of the vastus lateralis, interrupted and running 0 Vicryl in the fascia lukas, 3 O Vicryl for the subcutaneous layer and jessica for skin. The subcutaneous tissues were infiltrated with 20 mL of 0.5% Marcaine with epinephrine for postoperative pain control. Dressings of Xeroform, sterile 4x4s, an ABD and Medipore were applied. The patient was then transferred to the recovery room in good condition having tolerated the procedure well. Complications: none Post-operative Condition: stable Disposition: PACU Plan for aftercare: The patient will be allowed to weight bear as tolerated. He will continue on violin Willebrand's factor concentrate for 5 days postoperatively although this may be shorter based on his clinical course.
[2020-05-16] MEDS: LACTATED RINGERS 1,000 ML 42 ML IV ×2 (08:21→09:52)
[2020-05-16] MEDS: ANTIHEMOPHILIC FACTOR/VWF 600 UNIT VIAL 1832 UNIT IV ×2 (08:30→16:38)
[2020-05-16] MEDS: CEFAZOLIN 1 GM/50 ML FROZ.PIGGY IV (08:30)
--- NOTE | 2020-05-16 09:02 | CM.DANOTE ---
Addendum entered by Jaimee Jamil LPN 05/16/20 11:01: Will need OT as well as PT orders once pt is ready for this. Have discussed case now with PT Francia. Addendum entered by Jaimee Jamil LPN 05/16/20 10:38: Winona back from [employer] programmer at [facility] INPT rehab. Explained pt's case and insurance. He noted that with the special program they have at the facility they may well be able to accept this pt. He stated that they have been able to accept many patients under the [facility] medicaid programs. Agreed to send on the referral packet. At this point this plan is all in the fact finding stage. Do not yet know what the therapists will recommend or what the pt wants and what his support system might look like. Original Note: Discharge Planning/Care Management DCP: assessment: Initiated: case received, EMR reviewed and went to room to check in with pt. He had already been taken to surgery. His White-Board in room was updated with the CM/DCP phone number. Contact numbers of friends were also on the Board: Kobe: [phone] Tl: [phone] Pt is a 59 year old male who admitted yesterday to care of hospitalist team after a fall on stairs: hip fracture L Consulting: Dr. Miller. Pt to surgery today for ORIF L hip. Medical complexity: noted: pt carries diagnosis of Von Willegrand's disease with need for Von W Factor post surgery for 5 days and treatment prior to surgery. Pt also had type II diabetes, has been on oral medications and transitioned to insulin just last week. He was in the ER 05/12 with blood glucose level > 700. Was seen at that time by hospitalist and ok'd for home setting with clinic and insulin followup. PCP: listed as: Randa Brooks Plan to discuss case today in Team Rounds. Expect OT and PT will be involved and DCP team will be following this case closely to assist with d/c issues and options. Payer: [facility] [employer]/Medicaid Admission status: INPT: confirmed by DELGADO Chan [facility] insurance will likely be a challenge if snf or home health are indicated. Pt is likely to need rehab in some setting... Have left a for admissions/[facility] inpt rehab : [phone] to see if pt's insurance might quality him for their program and for further discussion. At this time, will need to defer to DCP team coming on Sunday/05/17 as pt will be out of surgery, more will be known and will have better access to facilities. CM Discharge Assessment Start: 05/16/20 09:00 Freq: Status: Active Protocol: Document 05/16/20 09:01 IT (Rec: 05/16/20 09:02 IT [id number]) Discharge Planning Assessment Advance Directives? No History Provided By Medical Record Prior Living Arrangements House Household Members friend(s) Is patient alert and oriented? Yes Review Status In Process
--- NOTE | 2020-05-16 09:10 | SUR.OPER ---
Head on pillow. Supine on fracture table with operative leg secured in traction. Other leg secured in padded stirrup. Left Arm padded and across chest, secured tape over sheet.
[2020-05-16] MEDS: BUPIVACAINE 0.5% W/ EPI (PF) 30 ML VIAL INJ (09:16)
[2020-05-16] MEDS: TRANEXAMIC ACID 1,000 MG VIAL 1000 MG IV ×2 (09:16→09:31)
[2020-05-16] MEDS: HYDROMORPHONE 2 MG INJ IV ×2 (10:31→10:37)
[2020-05-16] MEDS: INSULIN ASPART 100 UNIT/ML 10ML VIAL SUBCUT (10:43)
[2020-05-16] MEDS: POTASSIUM CHLORIDE 10 MEQ TAB PO (12:24)
[2020-05-16] MEDS: NYSTATIN SUSP 500,000 UNIT/5 ML UDC 500000 UNIT PO ×3 (12:24→21:12)
[2020-05-16] MEDS: hydrOXYzine pamoate 25 MG CAPSULE PO (12:24)
[2020-05-16] MEDS: FUROSEMIDE 20 MG TABLET PO (12:24)
[2020-05-16] MEDS: LACTATED RINGERS 1,000 ML 125 ML IV (12:25)
[2020-05-16] MEDS: HYDROMORPHONE 0.5 MG INJ IV ×4 (12:25→22:55)
[2020-05-16] MEDS: INSULIN GLARGINE 100 UNIT/ML 3ML PEN 10 UNIT SUBCUT (12:26)
[2020-05-16] MEDS: INSULIN REGULAR 100 UNIT/ML 3 ML VIAL 10 UNIT IV ×2 (12:40→16:58)
[2020-05-16] MEDS: OXYCODONE IR 10 MG TABLET PO ×3 (14:24→21:12)
[2020-05-16] MEDS: ACETAMINOPHEN 325 MG TABLET 975 MG PO ×2 (15:59→21:10)
[2020-05-16] MEDS: NICOTINE 21 MG PATCH TOP (16:01)
--- NOTE | 2020-05-16 16:12 | PT.IIE ---
Surgery Performed Operation Date: 05/16/20 08:00 Actual Procedures p ORIF Hip DHS(Left) - Kevin Miller MD Surgical History (Last Updated 05/15/20 @ 21:08 by SUZANNE Aaron) History of umbilical hernia repair (Acute) Medical History (Last Reviewed 05/15/20 @ 21:08 by SUZANNE Aaron) Peripheral edema (Acute) Smoker (Acute) Type 2 diabetes mellitus (Acute) Von Willebrand disease (Acute) Physical Therapy Inpatient Evaluation/Re-Eval M1 PT/OT-IP Prior Functional Status Start: 05/16/20 12:13 Freq: NEEDED Status: Active Protocol: Document 05/16/20 15:29 AW (Rec: 05/16/20 16:11 AW [id number]) Medical Review Prior Functional Status Medical History Reviewed Yes Communication WNL. No known deficits. Mobility and Gait Pt states his lower legs have been swollen and heavy for the past two months which has been affecting his balance. He denies falls other than the fall that resulted in his hip fracture. He is typically indpendent for ambulation without AD and without time or distance limit. Activities of Daily Living and IADL's IND though with increasing difficulty donning lower body garments due to heavy legs. Prior Functional Level (Other details) Pt has diabetes with poor glycemic control and von Willebrand's disease. Social History Household Members friend(s) Living Arrangements House Number of Floors (Floors) Two Floors Number of Stairs To Enter/Railing? 7 DWAIN with wide bilateral rails. Pt enters his split level home on landing level and then descends 7 steps with R rail going down to his living quarters. Home Environment Standard Height Toilet,Walk in Shower Home Equipment Hand Held Shower,Grab Bars In Shower Employment Status Unemployed Additional Social History Comment Pt lives with 3 roommates in [facility]. He has a son who lives in [place]. M2 PT-IP Current Condition Start: 05/16/20 12:13 Freq: NEEDED Status: Active Protocol: Document 05/16/20 15:29 AW (Rec: 05/16/20 16:11 AW [id number]) Physical Therapy Current Condition Current Condition Evaluation Date 05/16/20 Treatment Diagnosis ORIF left intertroch femur fracture; difficulty in walking Onset Date 05/15/20 Weight Bearing Status Weight Bearing Status Weight Bear as Tolerated M3 PT-IP Subjective Start: 05/16/20 12:13 Freq: NEEDED Status: Active Protocol: Document 05/16/20 15:29 AW (Rec: 05/16/20 16:11 AW [id number]) Subjective Physical Therapy Visit Type Type Initial Evaluation Visit Start Time 13:52 Visit Stop Time 14:38 Total Visit Minutes 46 Physical Therapy Visit Comments Patient Comments I haven't stood up yet and I' m dreading it. Therapy Pain Assessment Pain When Pain Assessed During Mobility Pain Present Pain Present Pain Reported Location Left Hip Intensity 7 Pain Management Techniques Distraction,Re-positioning, Timing of Activity with Medications M4 PT-IP Mobility and Gait Start: 05/16/20 12:13 Freq: NEEDED Status: Active Protocol: Document 05/16/20 15:29 AW (Rec: 05/16/20 16:11 AW [id number]) PT-Bed Mobility Assessment Supine to Sit Supine to Sit Minimal Assistance,1 Person Assistance,Head of Bed Elevated,Bedrails Scooting Scooting to Edge of Bed Minimal Assistance PT-Transfer Assessment Sit to and From Stand Sit to and from Stand Moderate Assistance,1 Person Assistance,Use of Upper Extremities Equipment Transfer Assistive Device Gait Belt,Front Wheeled Walker Orthotic/Prosthetic Devices or Brace: No Transfers Transfer Destination Chair Transfer Technique pt ambulated with FWW Transfer Ability Level of Assist Minimal Assistance,1 Person Assistance Comments Mobility Comments Pt was lying in bed upon PT arrival. With HOB elevated, pt was able to complete supine to sit with min A x 1 for support and guidance of the operative leg. Pt then scooted toward EOB min A x 1 where he was able to sit without UE support once he had his feet on the floor. Pt stood from the bed (raised ~3) mod A x 1 with cues for placement of the operative leg and for pushing off the bed with BUE. He was able to stand with the walker and perform weight shifting bilaterally. He walked ~3 feet to the chair and transferred min A x 1. Pt stated I'm amazed I'm up on this leg. Pt agreed to further mobility. He stood from the chair mod A x 1 with increased difficulty due to the lower surface compared with the bed. He ambulated to the sink where he was able to stand and wash hands with CGA for balance. He then ambulated back to the chair and sat again. He was reclined in the chair and left with call light , phone, and all needs within reach. Gait Assessment Gait Gait Assistance Required: Contact Guard Assist,1 Person Assist Distance (Feet) 6 Able to Maintain Weight Bearing Status Yes During Gait Assistive Devices Assistive Device Gait Belt,Front Wheeled Walker Orthotic/Prosthetic Devices or Brace: No Gait Deviations General Gait Pattern Antalgic,Decreased Stride Length,Decreased Feet Clearance,Flexed Trunk,Step-to Gait Factors Limiting Gait Function Factors Limiting Gait Function Decreased Activity Tolerance, Decreased Sensation,Decreased Strength,Limited Range of Motion,Pain,Poor Balance,Poor Safety Awareness Comments Gait Comments Pt required verbal cues to keep his feet within the walker frame and to avoid twisting on planted feet. See mobility comments for details. Stair Climbing Assessment Comments Stair Climbing Comments Not assessed. PT-Balance Assessment Sitting Balance and Reactions Static Sitting Balance Ability Normal Dynamic Sitting Balance Ability Normal Standing Balance and Reactions Static Standing Balance Ability Good Dynamic Standing Balance Ability Good M5 PT-IP Objective Assessments Start: 05/16/20 12:13 Freq: NEEDED Status: Active Protocol: Document 05/16/20 15:29 AW (Rec: 05/16/20 16:11 AW [id number]) Orientation Orientation/Cognition Level of Alertness Alert Orientation Name,Day of Week,Place, Situation Language Function Ability No Deficits Noted Safety Awareness Decreased Safety Awareness Gross Range of Motion Upper Extremity ROM Assessment Within Functional Limits Lower Extremity ROM Assessment Left Impaired Strength Upper Extremity Strength Assessment Bilaterally Impaired Shoulder 4/5 Lower Extremity Strength Assessment Bilaterally Impaired Comments Strength Comments R hip 3/5; R knee 4-/5; R ankle 4-/5 Sensation Assessment Sensation Gross Sensation Right LE Impaired,Left LE Impaired Light Touch Impaired Comments Sensation Comments Dull light touch bilateral feet Muscle Tone Muscle Tone WNL Yes M6 PT-IP Treatment Start: 05/16/20 12:13 Freq: NEEDED Status: Active Protocol: Document 05/16/20 15:29 AW (Rec: 05/16/20 16:11 AW [id number]) Physical Therapy Treatment Exercises Exercises Ankle Pumps,Gluteal Sets,Quad Sets,Heel Slides Education Education Provided Precautions,Weight Bearing Status,Post-Op Packet,Safety Other Treatments Other Treatment Performed Provided education on role of PT, plan of care, weightbearing status, and safe use of FWW. M7 PT-IP Assessment and Plan Start: 05/16/20 12:13 Freq: NEEDED Status: Active Protocol: Document 05/16/20 15:29 AW (Rec: 05/16/20 16:11 AW [id number]) PT Summary Assessment and Plan Potential Rehabilitation Potential Good Status of Condition at Evaluation Evolving Summary Impairments Pain,ROM,Strength,Balance, Sensation,Bed Mobility, Transfers,Gait,Activity Tolerance Assessment Summary Timothy is a 59 yo man with poorly-controlled diabetes and von Willebrand's disease who was seen for PT evaluation on POD0 following ORIF with dynamic screw for left intertrochanteric femur fracture. At baseline, pt is an independent ambulator though he states his balance has been affected by recent swelling and heaviness of bilateral distal legs. On evaluation, pt required min to mod assist for all mobility. In the setting of multiple co- morbidities, it is likely this pt will require 24/7 assist with all mobility at discharge and would benefit from daily therapy to address strength, balance, and gait impairments before discharge to home. PT will continue to assess and refine discharge recommendation based on progress. Goals Bed Mobility Goal Independent Transfer Goal Independent,Front Wheeled Walker Gait Goal Independent,Front Wheel Walker Gait Distance 200 Other Goals - up/down 7 steps with unilateral rail SBA Days to Meet Goals 10 Frequency of Treatment Frequency Of Treatment Twice a Day Treatment Plan Physical Therapy Treatment Plan Bed Mobility Training,Transfer Training,Gait Training, Therapeutic Exercise,Balance Retraining,Post Op Education, Discharge Planning,Hot or Cold Pack Other Recommendations and Next Treatment ther ex; gait training with Focus FWW Recommendations To Nursing Amount of Assist Needed 1 Person Assist Discharge Recommendations PT Discharge Recommendations SNF Rehab Other Discharge Recommendations 24/7 assist and daily PT Equipment Needed for Home Before defer to rehab setting Discharge Transportation Needs at Discharge Private Vehicle,Wheelchair/ Cabulance
--- NOTE | 2020-05-16 16:13 | PT.IIE ---
Surgery Performed Operation Date: 05/16/20 08:00 Actual Procedures p ORIF Hip DHS(Left) - Kevin Miller MD Surgical History (Last Updated 05/15/20 @ 21:08 by SUZANNE Aaron) History of umbilical hernia repair (Acute) Medical History (Last Reviewed 05/15/20 @ 21:08 by SUZANNE Aaron) Peripheral edema (Acute) Smoker (Acute) Type 2 diabetes mellitus (Acute) Von Willebrand disease (Acute) Physical Therapy Inpatient Evaluation/Re-Eval M1 PT/OT-IP Prior Functional Status Start: 05/16/20 12:13 Freq: NEEDED Status: Active Protocol: Document 05/16/20 15:29 AW (Rec: 05/16/20 16:11 AW [id number]) Medical Review Prior Functional Status Medical History Reviewed Yes Communication WNL. No known deficits. Mobility and Gait Pt states his lower legs have been swollen and heavy for the past two months which has been affecting his balance. He denies falls other than the fall that resulted in his hip fracture. He is typically indpendent for ambulation without AD and without time or distance limit. Activities of Daily Living and IADL's IND though with increasing difficulty donning lower body garments due to heavy legs. Prior Functional Level (Other details) Pt has diabetes with poor glycemic control and von Willebrand's disease. Social History Household Members friend(s) Living Arrangements House Number of Floors (Floors) Two Floors Number of Stairs To Enter/Railing? 7 DWAIN with wide bilateral rails. Pt enters his split level home on landing level and then descends 7 steps with R rail going down to his living quarters. Home Environment Standard Height Toilet,Walk in Shower Home Equipment Hand Held Shower,Grab Bars In Shower Employment Status Unemployed Additional Social History Comment Pt lives with 3 roommates in [facility]. He has a son who lives in [place]. M2 PT-IP Current Condition Start: 05/16/20 12:13 Freq: NEEDED Status: Active Protocol: Document 05/16/20 15:29 AW (Rec: 05/16/20 16:11 AW [id number]) Physical Therapy Current Condition Current Condition Evaluation Date 05/16/20 Treatment Diagnosis ORIF left intertroch femur fracture; difficulty in walking Onset Date 05/15/20 Weight Bearing Status Weight Bearing Status Weight Bear as Tolerated M3 PT-IP Subjective Start: 05/16/20 12:13 Freq: NEEDED Status: Active Protocol: Document 05/16/20 15:29 AW (Rec: 05/16/20 16:11 AW [id number]) Subjective Physical Therapy Visit Type Type Initial Evaluation Visit Start Time 13:52 Visit Stop Time 14:38 Total Visit Minutes 46 Physical Therapy Visit Comments Patient Comments I haven't stood up yet and I' m dreading it. Therapy Pain Assessment Pain When Pain Assessed During Mobility Pain Present Pain Present Pain Reported Location Left Hip Intensity 7 Pain Management Techniques Distraction,Re-positioning, Timing of Activity with Medications M4 PT-IP Mobility and Gait Start: 05/16/20 12:13 Freq: NEEDED Status: Active Protocol: Document 05/16/20 15:29 AW (Rec: 05/16/20 16:11 AW [id number]) PT-Bed Mobility Assessment Supine to Sit Supine to Sit Minimal Assistance,1 Person Assistance,Head of Bed Elevated,Bedrails Scooting Scooting to Edge of Bed Minimal Assistance PT-Transfer Assessment Sit to and From Stand Sit to and from Stand Moderate Assistance,1 Person Assistance,Use of Upper Extremities Equipment Transfer Assistive Device Gait Belt,Front Wheeled Walker Orthotic/Prosthetic Devices or Brace: No Transfers Transfer Destination Chair Transfer Technique pt ambulated with FWW Transfer Ability Level of Assist Minimal Assistance,1 Person Assistance Comments Mobility Comments Pt was lying in bed upon PT arrival. With HOB elevated, pt was able to complete supine to sit with min A x 1 for support and guidance of the operative leg. Pt then scooted toward EOB min A x 1 where he was able to sit without UE support once he had his feet on the floor. Pt stood from the bed (raised ~3) mod A x 1 with cues for placement of the operative leg and for pushing off the bed with BUE. He was able to stand with the walker and perform weight shifting bilaterally. He walked ~3 feet to the chair and transferred min A x 1. Pt stated I'm amazed I'm up on this leg. Pt agreed to further mobility. He stood from the chair mod A x 1 with increased difficulty due to the lower surface compared with the bed. He ambulated to the sink where he was able to stand and wash hands with CGA for balance. He then ambulated back to the chair and sat again. He was reclined in the chair and left with call light , phone, and all needs within reach. Gait Assessment Gait Gait Assistance Required: Contact Guard Assist,1 Person Assist Distance (Feet) 6 Able to Maintain Weight Bearing Status Yes During Gait Assistive Devices Assistive Device Gait Belt,Front Wheeled Walker Orthotic/Prosthetic Devices or Brace: No Gait Deviations General Gait Pattern Antalgic,Decreased Stride Length,Decreased Feet Clearance,Flexed Trunk,Step-to Gait Factors Limiting Gait Function Factors Limiting Gait Function Decreased Activity Tolerance, Decreased Sensation,Decreased Strength,Limited Range of Motion,Pain,Poor Balance,Poor Safety Awareness Comments Gait Comments Pt required verbal cues to keep his feet within the walker frame and to avoid twisting on planted feet. See mobility comments for details. Stair Climbing Assessment Comments Stair Climbing Comments Not assessed. PT-Balance Assessment Sitting Balance and Reactions Static Sitting Balance Ability Normal Dynamic Sitting Balance Ability Normal Standing Balance and Reactions Static Standing Balance Ability Good Dynamic Standing Balance Ability Good M5 PT-IP Objective Assessments Start: 05/16/20 12:13 Freq: NEEDED Status: Active Protocol: Document 05/16/20 15:29 AW (Rec: 05/16/20 16:11 AW [id number]) Orientation Orientation/Cognition Level of Alertness Alert Orientation Name,Day of Week,Place, Situation Language Function Ability No Deficits Noted Safety Awareness Decreased Safety Awareness Gross Range of Motion Upper Extremity ROM Assessment Within Functional Limits Lower Extremity ROM Assessment Left Impaired Strength Upper Extremity Strength Assessment Bilaterally Impaired Shoulder 4/5 Lower Extremity Strength Assessment Bilaterally Impaired Comments Strength Comments R hip 3/5; R knee 4-/5; R ankle 4-/5 Sensation Assessment Sensation Gross Sensation Right LE Impaired,Left LE Impaired Light Touch Impaired Comments Sensation Comments Dull light touch bilateral feet Muscle Tone Muscle Tone WNL Yes M6 PT-IP Treatment Start: 05/16/20 12:13 Freq: NEEDED Status: Active Protocol: Document 05/16/20 15:29 AW (Rec: 05/16/20 16:11 AW [id number]) Physical Therapy Treatment Exercises Exercises Ankle Pumps,Gluteal Sets,Quad Sets,Heel Slides Education Education Provided Precautions,Weight Bearing Status,Post-Op Packet,Safety Other Treatments Other Treatment Performed Provided education on role of PT, plan of care, weightbearing status, and safe use of FWW. M7 PT-IP Assessment and Plan Start: 05/16/20 12:13 Freq: NEEDED Status: Active Protocol: Document 05/16/20 15:29 AW (Rec: 05/16/20 16:11 AW [id number]) PT Summary Assessment and Plan Potential Rehabilitation Potential Good Status of Condition at Evaluation Evolving Summary Impairments Pain,ROM,Strength,Balance, Sensation,Bed Mobility, Transfers,Gait,Activity Tolerance Assessment Summary Timothy is a 59 yo man with poorly-controlled diabetes and von Willebrand's disease who was seen for PT evaluation on POD0 following ORIF with dynamic screw for left intertrochanteric femur fracture. At baseline, pt is an independent ambulator though he states his balance has been affected by recent swelling and heaviness of bilateral distal legs. On evaluation, pt required min to mod assist for all mobility. In the setting of multiple co- morbidities, it is likely this pt will require 24/7 assist with all mobility at discharge and would benefit from daily therapy to address strength, balance, and gait impairments before discharge to home. PT will continue to assess and refine discharge recommendation based on progress. Goals Bed Mobility Goal Independent Transfer Goal Independent,Front Wheeled Walker Gait Goal Independent,Front Wheel Walker Gait Distance 200 Other Goals - up/down 7 steps with unilateral rail SBA Days to Meet Goals 10 Frequency of Treatment Frequency Of Treatment Twice a Day Treatment Plan Physical Therapy Treatment Plan Bed Mobility Training,Transfer Training,Gait Training, Therapeutic Exercise,Balance Retraining,Post Op Education, Discharge Planning,Hot or Cold Pack Other Recommendations and Next Treatment ther ex; gait training with Focus FWW Recommendations To Nursing Amount of Assist Needed 1 Person Assist Discharge Recommendations PT Discharge Recommendations SNF Rehab,Acute Rehab Other Discharge Recommendations 24/7 assist and daily PT Equipment Needed for Home Before defer to rehab setting Discharge Transportation Needs at Discharge Private Vehicle,Wheelchair/ Cabulance
--- NOTE | 2020-05-16 16:19 | PM.PN.1 ---
Subjective Subjective Date Patient Seen: 05/16/20 Interval history: Oz Bernardo is a 59-year-old male with a past medical history significant for uncontrolled diabetes mellitus type 2, recently started insulin, unexplained weight loss, Von Willebrand's disease and peripheral edema who presented to the ED after he slipped and fell down a short flight of stairs landing on his left hip sustaining a left intertrochanteric fracture. Patient is resting in bed comfortably. He continues to have left hip and leg pain that is controlled with pain medications. His blood pressure is low normal and he has peripheral edema with concern for failure of either heart or liver (patient endorses history of heavy alcohol drinking in his 30s although outside record from [facility] indicates patient went to [facility]/alcohol treatment in December of 2019). He has no other complaints and denies headache, chest pain, shortness of breath, abdominal pain, nausea, vomiting, fever, chills, dysuria, or diarrhea. He is voiding via Benitez catheter. He has not had a bowel movement since 2 days prior to admission and a bowel regimen has been implemented. He is up ambulating with assistance. Exam Vital Signs (past 8 hours): - 05/16/20 10:02 05/16/20 10:07 05/16/20 10:13 Temperature 98.2 F Pulse Rate 81 93 H 89 Respiratory Rate 14 12 10 L Blood Pressure 115/64 100/60 102/60 Pulse Oximetry 98 95 99 05/16/20 10:18 05/16/20 10:23 05/16/20 10:28 Temperature Pulse Rate 82 87 78 Respiratory Rate 10 L 10 L 9 L Blood Pressure 90/50 L 107/65 110/66 Pulse Oximetry 99 96 95 05/16/20 10:34 05/16/20 10:50 05/16/20 11:05 Temperature 97.9 F Pulse Rate 81 80 86 Respiratory Rate 10 L 16 12 Blood Pressure 114/66 106/63 106/69 Pulse Oximetry 94 94 96 05/16/20 11:30 05/16/20 11:50 05/16/20 12:00 Temperature 97.3 F L 97.1 F L Pulse Rate 78 74 Respiratory Rate 19 19 Blood Pressure 99/68 96/55 L Pulse Oximetry 96 96 91 05/16/20 12:30 05/16/20 13:30 08/09/20 14:30 Temperature 97.1 F L 97.0 F L 97.2 F L Pulse Rate 99 H 90 85 Respiratory Rate 19 18 17 Blood Pressure 81/54 L 105/57 L 118/59 L Pulse Oximetry 92 95 05/16/20 15:38 Temperature 97.6 F Pulse Rate 83 Respiratory Rate 16 Blood Pressure 94/62 Pulse Oximetry 93 Oxygen Delivery Method Room Air Oxygen Flow Rate 0 Narrative Exam Narrative: General: Older cachectic male sitting in bed and in no acute distress, appears significantly older than stated age, chronically ill, appropriately interactive. HEENT: Normocephalic, atraumatic. External ears without defect. Pupils equal, round, and reactive to light and accommodation. Anicteric sclerae, moist conjunctivae, and no lid lag. Oropharynx free of erythema and cobble stoning with moist mucosa. Neck: Supple with full range of motion. No jugular venous distension. No lymphadenopathy or thyromegaly. Cardiovascular: Difficult to auscultate due to bony prominence of ribs, heart sounds are distant but appears to be regular rate and rhythm without murmurs, rubs, or gallops appreciated. Pulmonary: Clear to auscultation bilaterally without crackles, wheezes, or rhonchi. Normal respiratory effort with no use of accessory muscles. Abdomen: Slightly firm, bowel sounds present protuberant with mild distention, nontender, nondistended. No hepatosplenomegaly or masses appreciated. Extremities: No clubbing or cyanosis. Mild pitting edema to pretibial area bilaterally. Skin: Normal temperature, turgor, and texture; no rash, ulcers, or subcutaneous nodules appreciated. Neurological: Cranial nerves grossly intact. Psychiatric: Normal mood and affect. Alert and oriented to person, place, and time. Objective Labs Result Diagrams: 05/17/20 05:31 05/16/20 05:00 Labs: Laboratory Results - last 24 hr 05/15/20 05/15/20 05/15/20 09:15 20:41 20:41 WBC RBC Hgb Hct MCV MCH MCHC RDW Plt Count Neut % (Auto) Lymph % (Auto) [place] % (Auto) Eos % (Auto) Baso % (Auto) Neut # (Auto) Lymph # (Auto) [place] # (Auto) Eos # (Auto) Baso # (Auto) Sodium 131 L Potassium 3.3 L Chloride 97 L Carbon Dioxide 29 BUN 13 Creatinine 0.41 L Estimated GFR > 60.0 BUN/Creatinine Ratio 31.7 H Glucose 299 H Calcium 8.3 L Magnesium 1.8 1.7 Blood Type Antibody Screen Crossmatch 05/16/20 05/16/20 05/16/20 05:00 05:00 05:00 WBC 6.2 RBC 3.00 L Hgb 10.1 L Hct 29.4 L MCV 98.1 MCH 33.6 MCHC 34.3 RDW 14.0 Plt Count 173 Neut % (Auto) 61.5 Lymph % (Auto) 29.3 [place] % (Auto) 7.9 Eos % (Auto) 0.6 L Baso % (Auto) 0.7 Neut # (Auto) 3800 Lymph # (Auto) 1800 [place] # (Auto) 500 Eos # (Auto) 0 Baso # (Auto) 0 Sodium 132 L Potassium 3.5 Chloride 100 Carbon Dioxide 31 BUN 15 Creatinine 0.33 L Estimated GFR > 60.0 BUN/Creatinine Ratio 45.5 H Glucose 251 H Calcium 8.4 Magnesium 1.8 Blood Type O Positive Antibody Screen Negative Crossmatch See Detail Assessment & Plan Assessment & Plan narrative: Oz Bernardo is a 59-year-old male with a past medical history significant for uncontrolled diabetes mellitus type 2, recently started insulin, unexplained weight loss, Von Willebrand's disease and peripheral edema who presented to the ED after he slipped and fell down a short flight of stairs landing on his left hip sustaining a left intertrochanteric fracture. 1. Acute pathological left intratrochanteric hip fracture, status post left hip ORIF, present on admission. Active. -Patient presented after ground level fall slipping down stairs on to hard asphalt with left hip pain and inability to ambulate. -Left hip x-ray demonstrated inimally displaced left intertrochanteric hip fracture. -Continue vitamin D3 and calcium supplementation. Patient will need be treated for osteoporosis as an outpatient by PCP or orthopedic surgery. -Orthopedic surgery consulted, Dr. Miller, who performed left hip ORIF. Continue postoperative management, pain control and Von Willebrand's factor as below per Orthopedic surgery. -Ordered physical and occupational therapy evaluation treatment, pending. 2. Acute blood loss anemia on anemia of chronic disease, present on admission. Active. -Initial hemoglobin 12.9 and at baseline. Hemoglobin trended down now 10.1 likely due to hemodilution and acute blood loss from left hip fracture and ORIF. No overt signs of bleeding. Continue Von Willebrand's factor as below. Transfusion goal < 7.0. -Continue to monitor CBC daily. 3. Von Willebrand's disease, chronic, present on admission. Stable. -Continue on Von Willebrand factor every 8 hours for up to 5 days postoperatively depending upon clinical course per Orthopedic surgery. 4. Diabetes mellitus type 2, insulin using, present on admission. Active. Diabetes Type 2, currently under control, present on admission -Hemoglobin A1c > 14% on 05/12/2020. -Continue Lantus increased from 10 units daily to 20 units twice daily. -Continue [facility] blood glucose checks and high-dose correctional scale insulin. -Continue carbohydrate consistent/heart healthy diet. 5. Hyponatremia and hypokalemia, acuity unclear, present on admission. Resolving. -Initial sodium level 131 and potassium level 2.9. Sodium and potassium a trending up. -Received IV and oral potassium in the ED. Continued NS with 40 mEq KCl at 75 mL/hr until patient appeared adequately hydrated and potassium chloride 40 mEq x3. Plan to restart home potassium chloride 10 mEq daily tomorrow. -Continue to monitor sodium and potassium and replete as necessary. 6. 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 -Patient reports he quiet drinking in 12/2019. He prior to that reports drinking 2-3 malt beverages per day and heavy drinking in his 30s. -He previously had opiate dependence for urine half due to back pain on Vicodin and subsequent has requires higher doses of pain medication. -Patient has peripheral edema with unclear etiology and likely due to liver disease versus CHF and outpatient workup has been initiated per PCP. Continue home furosemide 20 mg daily. 7. Severe protein calorie malnutrition, possibly acute on chronic, present on admission. Active. -BMI 18.7. -Consulted dietitian we appreciate her time and recommendations. Code status: Full code VTE prophylaxis: Contraindicated due to reported von Willebrand's disease Disposition: Patient likely discharge in 1-2 days to intermediate facility versus home with home health once mobilizing well and if blood counts remained stable. Quality VTE Deep Vein Thrombosis/Pulmonary Embolism Present on Admission: No
[2020-05-16] MEDS: INSULIN ASPART 100 UNIT/ML INSULN PEN SUBCUT (16:56)
[2020-05-16] MEDS: DOCUSATE 100 MG CAPSULE PO (21:10)
[2020-05-16] MEDS: INSULIN GLARGINE 100 UNIT/ML 3ML PEN 20 UNIT SUBCUT (21:11)
--- NOTE | 2020-05-16 21:26 | PC.NURSE ---
Assumed care of pt at 1530. Pt sitting up in chair. Trans to bed with 1 PA w/fww. Steady on feet. Drsg c/d/i. CMS+. BG 495 at 1630. notified and insulin administered. High level of pain this shift, requiring PO Oxycodone and IV dilaudid. Ice packs to Left Hip. Declines repositioning. Pt stated to this mortgage loan underwriter that he was diagnosed with Von Willebrand disease when he was [age] years old.
[2020-05-16] MEDS: SODIUM CHLORIDE 0.9% FLUSH 10 ML IV (22:55)
[2020-05-17] VITALS (7 sets, daily range): BP systolic 83–114; BP diastolic 42–67; PULSE 71–91; RESP 16–19; TEMP 36.3–37; O2SAT 93–99
[2020-05-17] MEDS: ANTIHEMOPHILIC FACTOR/VWF 600 UNIT VIAL 1832 UNIT IV ×3 (00:02→16:30)
[2020-05-17] MEDS: HYDROMORPHONE 0.5 MG INJ IV ×7 (00:10→21:30)
[2020-05-17] MEDS: SODIUM CHLORIDE 0.9% FLUSH 10 ML IV ×4 (00:10→21:36)
[2020-05-17] MEDS: OXYCODONE IR 10 MG TABLET PO ×6 (03:28→21:15)
[2020-05-17 06:26] LABS: Hemoglobin 7.6 g/dL (13.5-17.5); Mean Corpuscular HGB Conc 34.5 % (30-36); Mean Corpuscular Volume 98.5 fL (80-100); Platelet Count 207 X10^3/uL (150-400); Red Blood Cell Count 2.25 X10^6/uL (4.5-5.9); White Blood Cell Count 6.8 X10^3/uL (4.5-11.0)
[2020-05-17 06:47] LABS: Hematocrit 22.1 % (41-53)
--- NOTE | 2020-05-17 08:15 | PM.PNPO.1 ---
Subjective Subjective Date Patient Seen: 05/17/20 Time Patient Seen: 08:16 Interval history: The patient reports excellent pain control from his left hip. He has been able to get up and ambulate with physical therapy. He says he is ?amazed? that he can bear weight on that leg. Exam Vital Signs (past 8 hours): - 05/17/20 03:00 05/17/20 04:10 Temperature 97.7 F Pulse Rate 71 Respiratory Rate 18 Blood Pressure 83/42 L Pulse Oximetry 94 94 Oxygen Delivery Method Room Air Oxygen Flow Rate 0 Narrative Exam Narrative: Left hip wound is dressed with no significant drainage. There is minimal swelling of the thigh. Calf is soft. Light touch and motion are intact in the left foot. Objective Labs Result Diagrams: 05/17/20 05:31 05/16/20 05:00 Labs: Laboratory Results - last 24 hr 05/16/20 05/17/20 05:00 05:31 WBC 6.8 RBC 2.25 L Hgb 7.6 L Hct 22.1 L MCV 98.5 MCH 34.0 MCHC 34.5 RDW 14.0 Plt Count 207 Blood Type O Positive Antibody Screen Negative Crossmatch See Detail Assessment & Plan Post-op Postoperative Procedures: Procedures Operation Date: 05/16/20 08:00 Actual Procedures Side Surgeon p ORIF Hip DHS Left Kevin Miller MD Postoperative day: 1 Postoperative status: doing well and anemia Postoperative status narrative: The patient is doing well from the standpoint of his left hip fracture and mobilization. Pain control has been good. His von Willebrand's disease is still being treated with factor replacement. He has had a significant drop in hemoglobin and hematocrit. He is not currently symptomatic from the standpoint of his anemia. Other ongoing medical issues include diabetes mellitus, malnutrition and liver function abnormalities. Postoperative plan: routine post-op care and ambulate Postoperative plan narrative: We will advance his mobilization with physical therapy. We will continue his von Willebrand's factor replacement. We will monitor his hemoglobin and hematocrit. Once his hemoglobin and hematocrit have stabilized, we should be able to stop the factor replacement. Recommendations for this are typically 3-5 days after major surgery. The patient is receiving care from the hospitalist service for his diabetes, malnutrition and liver function abnormalities. Time Spent With Patient Time with patient: less than 15 minutes Quality VTE Deep Vein Thrombosis/Pulmonary Embolism Present on Admission: No
[2020-05-17] MEDS: DOCUSATE 100 MG CAPSULE PO ×2 (08:44→21:13)
[2020-05-17] MEDS: ACETAMINOPHEN 325 MG TABLET 975 MG PO ×3 (08:44→21:13)
[2020-05-17] MEDS: NYSTATIN SUSP 500,000 UNIT/5 ML UDC 500000 UNIT PO ×4 (08:46→21:12)
[2020-05-17] MEDS: polyethylene glycoL 3350 17 GM POWD.PACK PO (08:46)
[2020-05-17] MEDS: METFORMIN XR 500 MG TABLET 1500 MG PO (08:46)
[2020-05-17] MEDS: glipiZIDE 5 MG TABLET 10 MG PO (08:47)
[2020-05-17] MEDS: INSULIN GLARGINE 100 UNIT/ML 3ML PEN 20 UNIT SUBCUT ×2 (08:50→21:19)
--- NOTE | 2020-05-17 10:54 | PT.IPTN ---
note reviewed by Elana Flores PTA Current Diagnoses Type 2 diabetes mellitus without complications (05/15/20) Nondisplaced intertrochanteric fracture of left femur, initial encounter for closed fracture (05/15/20) Surgery Performed Operation Date: 05/16/20 08:00 Actual Procedures p ORIF Hip DHS(Left) - Kevin Miller MD Physical Therapy Treatment Note M2 PT-IP Current Condition Start: 05/16/20 12:13 Freq: NEEDED Status: Active Protocol: Document 05/17/20 10:24 TP (Rec: 05/17/20 12:57 TP [id number]) Physical Therapy Current Condition Current Condition Evaluation Date 05/16/20 Treatment Diagnosis ORIF left intertroch femur fracture; difficulty in walking Onset Date 05/15/20 M3 PT-IP Subjective Start: 05/16/20 12:13 Freq: NEEDED Status: Active Protocol: Document 05/17/20 10:24 TP (Rec: 05/17/20 12:57 TP [id number]) Subjective Physical Therapy Visit Type Type Treatment Note Visit Start Time 10:24 Visit Stop Time 10:54 Total Visit Minutes 30 Notes Student ISAAC Gunderson supervised by ISAAC Mccollum. Number of YOUTH COUNSELOR Visits 1 Physical Therapy Visit Comments Patient Comments I want to stand up and move around. Therapy Pain Assessment Pain When Pain Assessed During Weight Bearing Pain Present Pain Present Pain Reported Location Left Hip Intensity 7 Scale Used Numeric (0 - 10) Pain Management Techniques Distraction,Re-positioning, Timing of Activity with Medications M4 PT-IP Mobility and Gait Start: 05/16/20 12:13 Freq: NEEDED Status: Active Protocol: Document 05/17/20 10:24 TP (Rec: 05/17/20 12:57 TP [id number]) PT-Transfer Assessment Sit to and From Stand Sit to and from Stand Minimal Assistance,1 Person Assistance,Use of Upper Extremities Equipment Transfer Assistive Device Gait Belt,Front Wheeled Walker Orthotic/Prosthetic Devices or Brace: No Transfers Transfer Destination Bed Transfer Technique pt ambulated with FWW Transfer Ability Level of Assist Minimal Assistance,1 Person Assistance Comments Mobility Comments Pt sitting in chair upon arrival. Agreeable to participate in with PT. Vitals taken in sitting BP 81/ 53 HR 82 SaO2 on RA 98%. Ther ex: B ankle pumps x10, B glute sets x10, B quad sets x10. Education for slow contraction, hold and slow release. Verbal and tactile cues for quad sets in pain free range. Sitting BP 92/57 HR 78 SaO2 on RA 99% Gait belt donned for safety. Scoot to edge of chair, with safe [id number] using FWW, MinAx1. Standing BP 98/66. Ambulation in room from L EOB to door and back FWW, CGA ~20' . Standing at L EOB, urination into urinal (700cc) FWW, CGA. Standing BP 94/58 HR 95. Stand to sit at L EOB FWW, CGA . Pt sitting at EOB on phone with call light and all other needs within reach. Bed alarm activated for safety. Nurse notified of patient's position on bed and volume of urine voided. Gait Assessment Gait Gait Assistance Required: Contact Guard Assist,1 Person Assist Distance (Feet) 20 Able to Maintain Weight Bearing Status Yes During Gait Gait Deviations General Gait Pattern Antalgic,Decreased Stride Length,Decreased Feet Clearance,Flexed Trunk,Step-to Gait Factors Limiting Gait Function Factors Limiting Gait Function Decreased Activity Tolerance, Decreased Sensation,Decreased Strength,Limited Range of Motion,Pain,Poor Balance,Poor Safety Awareness Comments Gait Comments See mobility comments. Stair Climbing Assessment Comments Stair Climbing Comments Not assessed. PT-Balance Assessment Sitting Balance and Reactions Static Sitting Balance Ability Normal Dynamic Sitting Balance Ability Normal Standing Balance and Reactions Static Standing Balance Ability Good Dynamic Standing Balance Ability Good M5 PT-IP Objective Assessments Start: 05/16/20 12:13 Freq: NEEDED Status: Active Protocol: Document 05/16/20 15:29 AW (Rec: 05/16/20 16:11 AW [id number]) Orientation Orientation/Cognition Level of Alertness Alert Orientation Name,Day of Week,Place, Situation Language Function Ability No Deficits Noted Safety Awareness Decreased Safety Awareness Gross Range of Motion Upper Extremity ROM Assessment Within Functional Limits Lower Extremity ROM Assessment Left Impaired Strength Upper Extremity Strength Assessment Bilaterally Impaired Shoulder 4/5 Lower Extremity Strength Assessment Bilaterally Impaired Comments Strength Comments R hip 3/5; R knee 4-/5; R ankle 4-/5 Sensation Assessment Sensation Gross Sensation Right LE Impaired,Left LE Impaired Light Touch Impaired Comments Sensation Comments Dull light touch bilateral feet Muscle Tone Muscle Tone WNL Yes M6 PT-IP Treatment Start: 05/16/20 12:13 Freq: NEEDED Status: Active Protocol: Document 05/17/20 10:24 TP (Rec: 05/17/20 12:57 TP [id number]) Physical Therapy Treatment Exercises Exercises Ankle Pumps,Gluteal Sets,Quad Sets Education Education Provided Weight Bearing Status,Post-Op Packet,Safety Other Treatments Other Treatment Performed Education on weightbearing status, and safe use of FWW. M7 PT-IP Assessment and Plan Start: 05/16/20 12:13 Freq: NEEDED Status: Active Protocol: Document 05/17/20 10:24 TP (Rec: 05/17/20 12:57 TP [id number]) PT Summary Assessment and Plan Potential Rehabilitation Potential Good Status of Condition at Evaluation Evolving Summary Impairments Pain,ROM,Strength,Balance, Sensation,Bed Mobility, Transfers,Gait,Activity Tolerance Progress Towards Goals Slow Progress due to Pain,Slow Progress due to Medical Issues Assessment Summary Pt BP is low but patient is asymptomatic, denying dizziness/lightheadedness initially. Pain increases with weightbearing and mobility to 8.5/10 during ambulation with FWW CGA around room. Pt admits some lightheadedness after ~10ft of ambulation. Continue PT to improve strength, endurance and activity tolerance for safe mobility and return to PLOF. Stairs have not been assessed, and pt has 7 at home . Goals Bed Mobility Goal Independent Transfer Goal Independent,Front Wheeled Walker Gait Goal Independent,Front Wheel Walker Gait Distance 200 Other Goals - up/down 7 steps with unilateral rail SBA Days to Meet Goals 10 Frequency of Treatment Frequency Of Treatment Twice a Day Treatment Plan Physical Therapy Treatment Plan Bed Mobility Training,Transfer Training,Gait Training, Therapeutic Exercise,Balance Retraining,Post Op Education, Discharge Planning,Hot or Cold Pack Other Recommendations and Next Treatment ther ex; gait training with Focus FWW; stairs when able. Recommendations To Nursing Amount of Assist Needed 1 Person Assist Discharge Recommendations PT Discharge Recommendations SNF Rehab,Acute Rehab Other Discharge Recommendations 30/04 assist and daily PT Equipment Needed for Home Before defer to rehab setting Discharge Transportation Needs at Discharge Private Vehicle,Wheelchair/ Cabulance
--- NOTE | 2020-05-17 11:34 | CM.DPC ---
Addendum entered by Rochelle Ramachandran R.N. 05/17/20 15:27: Checked with Richard in [place], they do not take insurance. [facility] does not as well, Mukesh just called to confirm. [facility] does not as well. Addendum entered by Rochelle Ramachandran R.N. 05/17/20 14:26: Spoke to Mary at [facility], she is currently reviewing, and stated that it may depend upon how much coverage that patient will get with P.T. Also, is noted that patient is originally from [facility]. Called Ana in admissions at [facility]. Stated that they are contracted with patient's insurance, but they are limited on beds. She stated that she would go ahead and review. Faxed information over to [facility]. Their fax number is: [phone]. Addendum entered by Rochelle Ramachandran R.N. 05/17/20 11:54: Called Mary in admissions at [facility], since patient is from there. Stated that they do have beds available, and they are contracted with [facility]. Went ahead and faxed over his referral and she will review. Original Note: DCP Cont: Contacted Mine at [facility] acute rehab. Stated that they are reviewing. She is requesting P.T. notes, current, vital sign information. Added O.T. orders after speaking to Dr. Camilo, since they need two disciplines. Mine stated, main concern is if he will need further transfusions, for they are expensive. Visited patient briefly during team rounds. He is alert and oriented. Other option is home health. Some agencies do not take his insurance. Called Veronica at [facility]. She stated that they can potentially take [facility], on a case by case basis. She stated that she would review and get back to care management today. Having Stormy, career development director send over referral to [facility]. Will also send over current P.T. notes over to [facility] as well. P: DCP to continue to follow. Patient could possibly go over to [facility] if they accept. Other option is home health. Rochelle Ramachandran RN/[employer] Specialist
--- NOTE | 2020-05-17 12:44 | OT.IP.EVAL ---
Current Diagnoses Type 2 diabetes mellitus without complications (05/15/20) Nondisplaced intertrochanteric fracture of left femur, initial encounter for closed fracture (05/15/20) Surgery Performed Operation Date: 05/16/20 08:00 Actual Procedures p ORIF Hip DHS(Left) - Kevin Miller MD Past Medical History (Last Reviewed 05/15/20 @ 21:08 by SUZANNE Aaron) Peripheral edema (Acute) Smoker (Acute) Type 2 diabetes mellitus (Acute) Von Willebrand disease (Acute) Surgical History (Last Updated 05/15/20 @ 21:08 by SUZANNE Aaron) History of umbilical hernia repair (Acute) Occupational Therapy Inpatient Evaluation/Re-Eval M1 PT/OT-IP Prior Functional Status Start: 05/16/20 12:13 Freq: NEEDED Status: Active Protocol: Document 05/17/20 15:13 CGR (Rec: 05/17/20 15:30 CGR [email or web address]) Medical Review Prior Functional Status Medical History Reviewed Yes Communication WNL. No known deficits. Mobility and Gait Pt states his lower legs have been swollen and heavy for the past two months which has been affecting his balance. He denies falls other than the fall that resulted in his hip fracture. He is typically indpendent for ambulation without AD and without time or distance limit. Activities of Daily Living and IADL's IND though with increasing difficulty donning lower body garments due to heavy legs. Prior Functional Level (Other details) Pt has diabetes with poor glycemic control and von Willebrand's disease. All information obtained from P.T. and reconfirmed with pt. Social History Household Members friend(s) Living Arrangements House Number of Floors (Floors) Two Floors Number of Stairs To Enter/Railing? 7 DWAIN with wide bilateral rails. Pt enters his split level home on landing level and then descends 7 steps with R rail going down to his living quarters. Pt states he is able to enter on the bottom floor without steps if he goes through the garage. Home Environment Standard Height Toilet,Walk in Shower Home Equipment Hand Held Shower,Grab Bars In Shower Employment Status Unemployed Additional Social History Comment Pt lives with 4 roommates in [facility]. He has a son who lives in [place]. Pt's bedroom and bath are on the bottom floor but the kitchen and main living area are upstairs. M2 OT-IP Current Condition Start: 05/17/20 15:13 Freq: Status: Active Protocol: Document 05/17/20 15:13 CGR (Rec: 05/17/20 15:30 CGR [email or web address]) Occupational Therapy Current Condition Current Condition Evaluation Date 05/17/20 Treatment Diagnosis GLF with L hip fx s/p ORIF of the L hip. Diagnosis Onset Date 05/15/20 Weight Bearing Status Weight Bearing Status Weight Bear as Tolerated M3 OT- IP Subjective and Pain Start: 05/17/20 15:13 Freq: Status: Active Protocol: Document 05/17/20 15:13 CGR (Rec: 05/17/20 15:30 CGR [email or web address]) OT- Subjective Occupational Therapy Visit Type Type Initial Evaluation Visit Start Time 12:15 Visit Stop Time 12:44 Total Visit Minutes 29 Notes Pt feeling frusterated by constant interuptions but agreeable to work with therapy . OT Pain Assessment Pain When Pain Assessed At Rest Pain Present Pain Present Pain Reported Location Left Hip Intensity 8 Scale Used Numeric (0 - 10) Management Techniques Modification of Treatment,Re- positioning M4 OT- IP ADL's Start: 05/17/20 15:13 Freq: Status: Active Protocol: Document 05/17/20 15:13 CGR (Rec: 05/17/20 15:30 CGR [email or web address]) OT [id number] General Evaluation Self-Feeding Ability Independent Comments OT Self-Feeding Comments Pt finishing lunch when OT entered and states still hungry. Pt states that the slitter and cutter operator recommended he increase his intake and requested more food. Nursing agreeable to this residential mortgage underwriter getting pt more food. Pt provided with 1.5 turkey sandwiches with triana and mustard packets, coffee with creamer, and slovak yogurt out of the nutrition room. OT ADL-Grooming General Evaluation Grooming Ability Independent Areas Needing Assistance Face Washing Comments OT Grooming Comments seated in chair OT ADL-Oral Care Comments Oral Care Comments not performed, pt declined to perform prior to finishing lunch. OT ADL-Dressing General Eval Lower Body Dressing Ability Total Assistance Areas Needing Assistance Socks Comments OT Dressing Comments seated EOB OT ADL-Toileting General Evaluation Toileting Ability Independent Devices Toileting Assistive Devices Urinal Comments OT Toileting Comments use of urinal seated in chair. OT ADL-Bathing Comments OT Bathing Comments not performed M5 OT- IP IADL's Start: 05/17/20 15:13 Freq: Status: Active Protocol: Document 05/17/20 15:13 CGR (Rec: 05/17/20 15:30 CGR [email or web address]) OT-Instrumental Activities of Daily Living Deficits IADL Deficits Identified No Deficits Home Safety Awareness Awareness of Need for Assistance at Home Good Awareness Ability to Problem Solve Emergency Able to Problem Solve Situations Medication Management Medication Management No Deficits Identified Money Management Money Management No Deficits Identified M6 OT- IP Functional Cognition Start: 05/17/20 15:13 Freq: Status: Active Protocol: Document 05/17/20 15:13 CGR (Rec: 05/17/20 15:30 CGR [email or web address]) Cognitive Factors Limiting Selfcare Function Cognitive Ability Level of Alertness Alert Patient Orientation Name,Age,Birthday,Month,Date, Year,Day of Week,Place, Situation Attention Span Ability Capable of Focused Attention, Capable of Sustained Attention Ability to Follow Commands Able to Follow Multi-Step Commands Memory Description No Deficits Noted Safety Awareness No Deficits Noted OT- Vision and Hearing OT- Hearing Assessment OT- Hearing Assessment WFL OT- Vision Assessment Visual Acuity WFL Visual Attentiveness WFL Occular Pursuits WFL Visual Convergence WFL M7 OT- IP Mobility and Balance Start: 05/17/20 15:13 Freq: Status: Active Protocol: Document 05/17/20 15:13 CGR (Rec: 05/17/20 15:30 CGR [email or web address]) OT- Bed Mobility Assessment Supine to Sit Supine to Sit Assist Moderate Assistance,Bedrails Scooting Scooting to Edge of Bed Minimal Assistance OT-Transfer Assessment Sit to and From Stand Sit to and from Stand Moderate Assistance Transfers Transfer Ability Minimal Assistance Technique Transfer Destination Bed,Chair Transfer Technique Stand Step Pivot Devices Transfer Assistive Devices Gait Belt,Front Wheeled Walker OT- Balance Assessment Sitting Balance and Reactions Static Sitting Balance Ability Good Dynamic Sitting Balance Ability Fair M8 OT- IP Objective Assessments Start: 05/17/20 15:13 Freq: Status: Active Protocol: Document 05/17/20 15:13 CGR (Rec: 05/17/20 15:30 CGR [email or web address]) OT Gross Range of Motion Upper Extremity Range of Motion Assessment Within Functional Limits OT Strength Upper Extremity Strength Assessment Within Functional Limits OT- Coordination Assessment Upper Extremity Finger to Nose Test Within Functional Limits Finger Tapping Test Within Functional Limits OT-Muscle Tone Assessment Muscle Tone WNL Yes OT Sensation Assessment Edema Edema Absent M9 OT- IP Assessment and Plan Start: 05/17/20 15:13 Freq: Status: Active Protocol: Document 05/17/20 15:13 CGR (Rec: 05/17/20 15:30 CGR [email or web address]) OT Summary Assessment and Plan Potential Rehabilitation Potential Excellent Analytic Complexity at Evaluation Low Summary OT Impairments Pain,Balance,Functional Mobility,Grooming,Dressing, Toileting,Bathing,Toilet Transfers,Shower Transfers, Activity Tolerance Progress Towards Goals Slow Progress due to Pain Assessment Summary Pt presents as a low complexity evalution s/p fall and hip fx. Pt will benefit from SNF upon discharge d/t limited assist at home and stairs to get to his kitchen. Pt is progressing and is likely to progress well with therapy. Goals Grooming Goal Independent Dressing Goal Independent Toileting Goal Independent Bathing Goal Independent Toilet Transfer Goal Independent Shower Transfer Goal Independent Days to Meet Goals 20 Frequency of Treatment Frequency Of Treatment Once a Day Treatment Plan OT Treatment Plan ADL Training,Functional Mobility,Patient/Family Education,Discharge Planning Other Treatment Recommendations and Next shower Treatment Focus Discharge Recommendations OT Discharge Recommendations SNF Rehab Home Equipment Needs TBD Transportation Needs at Discharge Private Vehicle
--- NOTE | 2020-05-17 13:06 | DIET.PN ---
Dietary Progress Note Assessment: Mr. Clinton is a 59 yom who presented to the ED 05/15 for a fall he sustained at a friend's house. States he slipped, and fell onto his left hip. He reported his legs have been swelling significantly since his blood sugars have been very high until recently. He has type 2 diabetes, he reports transition from oral agents to insulin about 5 days ago. Patient states he has had diabetes for 2 years which was controlled with oral antidiabetics until around January of this year. He reports 44 lbs unintentional weight loss with frequent urination. He denies a history of current alcohol use, but quit drinking in December of this year. On May 12, he presented to the emergency department at the direction of his primary care office when his laboratory findings resulted with a glucose in the 700s. The patient has been dealing with elevated blood glucoses for the past few months. He endorses improved appetite and requests double portions of protein foods. He states he does his own shopping and meal prep. Since starting lantus (10u qd) he is monitoring his BG 3-5x/d. He reports ranges in the 200's. BG 138 during this visit. HT: 74in WT: 145lb UBW: 190lb BMI: 18.7 Labs: A1c: >14 Cr: 0.33 Gluc:322, 299, 251, 83. 138 Meds: lantus 10u qd; metformin 1000mg BID; glipizide MNA: 11 Juanito: 19, 17 Nutrition Diagnosis: Severe chronic PCM r/t physiological/psychological causes, food- and nutrition-related knowledge deficit aeb weight loss >7.5% in 3 mo, BMI <18.5 at admit, severe loss of overall subcutaneous fat and muscle wasting, hx of alcohol abuse. Interventions: 1. Provided instruction on carb counting with recommended amounts per meal and snacks. Recommended pt request referral to outpatient diabetes education program. Pt highly interested and agreeable. 2. Provided handouts on high calorie/high protein nutrition therapy with list of high protein/calorie foods. 3. Provided ONS ensure Max for snacks between meals. Coupons provided for discharge. Diet Order: CCD EER: [id number] dwayne (30-33cal/kg) for PCM; 85-100g (1.3-1.5) Pro Monitoring/Evaluations: weight, PO's, labs, ONS acceptance
[2020-05-17] MEDS: NICOTINE 21 MG PATCH TOP (14:04)
--- NOTE | 2020-05-17 14:53 | PT.IPTN ---
note reviewed by Elana Flores PTA Current Diagnoses Type 2 diabetes mellitus without complications (05/15/20) Nondisplaced intertrochanteric fracture of left femur, initial encounter for closed fracture (05/15/20) Surgery Performed Operation Date: 05/16/20 08:00 Actual Procedures p ORIF Hip DHS(Left) - Kevin Miller MD Physical Therapy Treatment Note M2 PT-IP Current Condition Start: 05/16/20 12:13 Freq: NEEDED Status: Active Protocol: Document 05/17/20 14:53 TP (Rec: 05/17/20 16:53 TP [id number]) Physical Therapy Current Condition Current Condition Evaluation Date 05/16/20 Treatment Diagnosis ORIF left intertroch femur fracture; difficulty in walking Onset Date 05/15/20 M3 PT-IP Subjective Start: 05/16/20 12:13 Freq: NEEDED Status: Active Protocol: Document 05/17/20 14:53 TP (Rec: 05/17/20 16:53 TP [id number]) Subjective Physical Therapy Visit Type Type Treatment Note Visit Start Time 14:53 Visit Stop Time 15:17 Total Visit Minutes 24 Notes Student ISAAC Gunderson supervised by ISAAC Mccollum. Number of SERVICE CLEANER Visits 2 Physical Therapy Visit Comments Patient Comments I just had a BM. It feels much better to get some of that out of me. I feel better this afternoon. I was able to eat a lot at lunch. Therapy Pain Assessment Pain When Pain Assessed During Mobility Pain Present Pain Present Pain Reported Location Left Hip Intensity 6 Scale Used Numeric (0 - 10) Pain Management Techniques Distraction,Re-positioning, Timing of Activity with Medications M4 PT-IP Mobility and Gait Start: 05/16/20 12:13 Freq: NEEDED Status: Active Protocol: Document 05/17/20 14:53 TP (Rec: 05/17/20 16:53 TP [id number]) PT-Bed Mobility Assessment Rolling Type of Rolling Roll to Right Level of Assist Standby Assistance,1 Person Assistance Sit to Supine Sit to Supine Minimal Assistance,Moderate Assistance,2 Person Assistance PT-Transfer Assessment Sit to and From Stand Sit to and from Stand Contact Guard Assistance,1 Person Assistance Equipment Transfer Assistive Device Gait Belt,Front Wheeled Walker Orthotic/Prosthetic Devices or Brace: No Transfers Transfer Destination Bed Transfer Technique pt ambulated with FWW Transfer Ability Level of Assist Contact Guard Assistance, Minimal Assistance,1 Person Assistance Comments Mobility Comments Pt finising BM in restroom upon arrival. Pt agreeable to participating with PT, noting feeling better and experiencing a decrease in pain since the morning tx. Donned gait belt for safety. Ambulation to sink to wash hands, FWW, CGA. Standing BP 104/61. Step pivot R FWW, CGA . Ambulation in hallway and back to L EOB ~60ft FWW, CGA. Pt c/o increased pain with duration. Stand to sit FWW, CGA. Seated heel slides R x 10, knee ext R x 8 with pt hands under R hamstrings for support. Education regarding importance of ther ex for strength and DVT prevention. [id number], Min-ModAx2 with trunk and BLE assist. Supine BP 89/59 HR 91. Ankle pumps B x 10, heel slides self- assisted ROM R x10. Pt positioned reclined in bed with HOB elevated, bed alarm activated for safety, and call light and all other needs within reach. SCDs donned and activated for DVT prevention. Nursing staff notified of pt progress and desire for SCD volume to be decreased. Gait Assessment Gait Gait Assistance Required: Contact Guard Assist,1 Person Assist Distance (Feet) 60 Able to Maintain Weight Bearing Status Yes During Gait Assistive Devices Assistive Device Gait Belt,Front Wheeled Walker Orthotic/Prosthetic Devices or Brace: No Gait Deviations General Gait Pattern Antalgic,Decreased Stride Length,Decreased Feet Clearance,Flexed Trunk,Step-to Gait Factors Limiting Gait Function Factors Limiting Gait Function Decreased Activity Tolerance, Decreased Sensation,Decreased Strength,Limited Range of Motion,Pain,Poor Balance,Poor Safety Awareness Comments Gait Comments See mobility comments. Stair Climbing Assessment Comments Stair Climbing Comments Not assessed. PT-Balance Assessment Sitting Balance and Reactions Static Sitting Balance Ability Normal Dynamic Sitting Balance Ability Normal Standing Balance and Reactions Static Standing Balance Ability Good Dynamic Standing Balance Ability Good M5 PT-IP Objective Assessments Start: 05/16/20 12:13 Freq: NEEDED Status: Active Protocol: Document 05/16/20 15:29 AW (Rec: 05/16/20 16:11 AW [id number]) Orientation Orientation/Cognition Level of Alertness Alert Orientation Name,Day of Week,Place, Situation Language Function Ability No Deficits Noted Safety Awareness Decreased Safety Awareness Gross Range of Motion Upper Extremity ROM Assessment Within Functional Limits Lower Extremity ROM Assessment Left Impaired Strength Upper Extremity Strength Assessment Bilaterally Impaired Shoulder 4/5 Lower Extremity Strength Assessment Bilaterally Impaired Comments Strength Comments R hip 3/5; R knee 4-/5; R ankle 4-/5 Sensation Assessment Sensation Gross Sensation Right LE Impaired,Left LE Impaired Light Touch Impaired Comments Sensation Comments Dull light touch bilateral feet Muscle Tone Muscle Tone WNL Yes M6 PT-IP Treatment Start: 05/16/20 12:13 Freq: NEEDED Status: Active Protocol: Document 05/17/20 14:53 TP (Rec: 05/17/20 16:53 TP [id number]) Physical Therapy Treatment Exercises Exercises Ankle Pumps,Heel Slides,Seated Knee Flexion/Extension Education Education Provided Weight Bearing Status,Safety Other Treatments Other Treatment Performed Education on weightbearing status, and safe use of FWW. M7 PT-IP Assessment and Plan Start: 05/16/20 12:13 Freq: NEEDED Status: Active Protocol: Document 05/17/20 14:53 TP (Rec: 05/17/20 16:53 TP [id number]) PT Summary Assessment and Plan Potential Rehabilitation Potential Good Status of Condition at Evaluation Evolving Summary Impairments Pain,ROM,Strength,Balance, Sensation,Bed Mobility, Transfers,Gait,Activity Tolerance Progress Towards Goals Slow Progress due to Pain,Slow Progress due to Medical Issues Assessment Summary Pt BP improved this afternoon, allowing for increased activity. Pt ambulation into hallway with FWW CGA approximately 60ft. Increased mobility resulted in increased pain. Continue PT to improve strength, endurance and activity tolerance for safe mobility to return to PLOF. Focus next tx on further gait distance and duration and assess safety on stairs if tolerated. Goals Bed Mobility Goal Independent Transfer Goal Independent,Front Wheeled Walker Gait Goal Independent,Front Wheel Walker Gait Distance 200 Other Goals - up/down 7 steps with unilateral rail SBA Days to Meet Goals 10 Frequency of Treatment Frequency Of Treatment Twice a Day Treatment Plan Physical Therapy Treatment Plan Bed Mobility Training,Transfer Training,Gait Training, Therapeutic Exercise,Balance Retraining,Post Op Education, Discharge Planning,Hot or Cold Pack Other Recommendations and Next Treatment ther ex; gait training with Focus FWW; stairs when able. Recommendations To Nursing Amount of Assist Needed 1 Person Assist Discharge Recommendations PT Discharge Recommendations SNF Rehab,Acute Rehab Other Discharge Recommendations 24/ assist and daily PT Equipment Needed for Home Before defer to rehab setting Discharge Transportation Needs at Discharge Private Vehicle,Wheelchair/ Cabulance
--- NOTE | 2020-05-17 16:12 | P.PN_ITS ---
Subjective Subjective Date Patient Seen: 05/17/20 Interval history: Oz Bernardo is a 59-year-old male with a past medical history significant for uncontrolled diabetes mellitus type 2, recently started insulin, unexplained weight loss, Von Willebrand's disease and peripheral edema who presented to the ED after he slipped and fell down a short flight of stairs landing on his left h ip sustaining a left intertrochanteric fracture. Patient is resting in bed comfortably. He continues to have left hip and leg pain that is controlled with pain medications. He reports his hip is more swollen today . His H&H have dropped likely to oozing in hip with Von Willebrand's disease despite Von Willebrand's factor replacement. Patient continues to have low normal blood pressure but is asymptomatic. He has no other complaints and denies headache, chest pain, shortness of breath, abdominal pain, nausea, vomiting, fever, chills, dysuria, constipation or diarrhea. He is voiding and eliminating without difficulty. He is up ambulating with assistance. Exam Vital Signs (past 8 hours): - 05/17/20 16:00 05/17/20 20:25 Temperature 98.3 F 98.6 F Pulse Rate 79 91 H Respiratory Rate 17 18 Blood Pressure 95/58 L 114/63 Pulse Oximetry 99 98 Oxygen Delivery Method Room Air Oxygen Flow Rate 0 Narrative Exam Narrative: General: Older cachectic male sitting in bed and in no acute distress, appears significantly older than stated age, chronically ill, appropriately interactive. HEENT: Normocephalic, atraumatic. External ears without defect. Pupils equal, round, and reactive to light. Anicteric sclerae, moist conjunctivae, and no lid lag. Oropharynx free of erythema and cobble stoning with moist mucosa. Neck: Supple with full range of motion. No jugular venous distension. No lymphadenopathy or thyromegaly. Cardiovascular: Difficult to auscultate due to bony prominence of ribs, heart sounds are distant but appears to be regular rate and rhythm without murmurs, rubs, or gallops appreciated. Pulmonary: Clear to auscultation bilaterally without crackles, wheezes, or rhonchi. Normal respiratory effort with no use of accessory muscles. Abdomen: Slightly firm, bowel sounds present, protuberant with mild distention, nontender, nondistended. No hepatosplenomegaly or masses appreciated. Extremities: No clubbing or cyanosis. Mild pitting edema to pretibial area bilaterally. Left hip with dressing in place C/D/I with increased surrounding edema and induration. Skin: Normal temperature, turgor, and texture; no rash, ulcers, or subcutaneous nodules appreciated. Neurological: Cranial nerves grossly intact. Psychiatric: Normal mood and affect. Alert and oriented to person, place, and time. Objective Labs Result Diagrams: 05/17/20 05:31 05/16/20 05:00 Labs: Laboratory Results - last 24 hr 05/17/20 05:31 WBC 6.8 RBC 2.25 L Hgb 7.6 L Hct 22.1 L MCV 98.5 MCH 34.0 MCHC 34.5 RDW 14.0 Plt Count 207 Assessment & Plan Assessment & Plan narrative: Oz Bernardo is a 59-year-old male with a past medical history significant for uncontrolled diabetes mellitus type 2, recently started insulin, unexplained weight loss, Von Willebrand's disease and peripheral edema who presented to the ED after he slipped and fell down a short flight of stairs landing on his left hip sustaining a left intertrochanteric fracture. 1. Acute pathological left intratrochanteric hip fracture, status post left hip ORIF, present on admission. Active. -Patient presented after ground level fall slipping down stairs on to hard asphalt with left hip pain and inability to ambulate. -Left hip x-ray demonstrated minimally displaced left intertrochanteric hip fracture. -Continue vitamin D3 and calcium supplementation. Patient will need be treated for osteoporosis as an outpatient by PCP or orthopedic surgery. -Orthopedic surgery consulted, Dr. Miller, who performed left hip ORIF. Continue postoperative management, pain control and Von Willebrand's factor as below per Orthopedic surgery. -Continue physical and occupational therapy evaluation and treatment. 2. Acute blood loss anemia on anemia of chronic disease, present on admission. Active. -Initial hemoglobin 12.9 and at baseline. Hemoglobin continues to trend down now 7.6 likely due to slow oozing in hip as patient has Von Willebrand's disease and continue Von Willebrand's factor as below. Transfusion goal < 7.0. Continue to monitor vitals and telemetry closely. -Continue to monitor CBC daily. 3. Von Willebrand's disease, chronic, present on admission. Stable. -Continue on Von Willebrand factor every 8 hours for up to 5 days postoperatively depending upon clinical course per Orthopedic surgery. 4. Diabetes mellitus type 2, insulin using, present on admission. Active. Diabetes Type 2, currently under control, present on admission -Hemoglobin A1c > 14% on 05/12/2020. -Continue Lantus 20 units twice daily. -Continue ACHS blood glucose checks and high-dose correctional scale insulin. -Continue carbohydrate consistent/heart healthy diet. 5. Hyponatremia and hypokalemia, acuity unclear, present on admission. Reso lving. -Initial sodium level 131 and potassium level 2.9. Sodium and potassium trending up. -Received IV and oral potassium in the ED and NS with 40 mEq KCl at 75 mL/hr until patient adequately hydrated and potassium chloride 40 mEq x3. Continue home potassium chloride 10 mEq daily. -Continue to monitor sodium and potassium and replete as necessary. 6. 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 -Patient reports he quiet drinking in 12/2019. He prior to that reports drink ing 2-3 malt beverages per day and heavy drinking in his 30s. -He previously had opiate dependence for urine half due to back pain on Vicodin and subsequent has requires higher doses of pain medication. -Patient has peripheral edema with unclear etiology and likely due to liver disease versus CHF and outpatient workup has been initiated per PCP. Continue home furosemide 20 mg daily. 7. Severe protein calorie malnutrition, possibly acute on chronic, present on admission. Active. -BMI 18.7. -Consulted dietitian we appreciate her time and recommendations. Code status: Full code VTE prophylaxis: Contraindicated due to reported von Willebrand's disease Disposition: Patient remains hospitalized likely several days until blood counts are stable and will undoubtedly need detention facility for rehabilitation. Quality VTE Deep Vein Thrombosis/Pulmonary Embolism Present on Admission: No
[2020-05-17] MEDS: INSULIN ASPART 100 UNIT/ML INSULN PEN SUBCUT ×2 (16:29→21:20)
[2020-05-17] MEDS: POTASSIUM CHLORIDE 20 MEQ TAB 40 MEQ PO (18:21)
--- NOTE | 2020-05-17 23:09 | PC.NURSE ---
EVENING SHIFT Ambulating in the halls at change of shift. Tolerated, but verbalized increased pain. 4-8 throughout shift, improved with oxycodone and IVP Dilaudid. VSS, A&Ox3 throughout shift. Extensive education with Dr. Camilo regarding outpatient follow up. Notes taken for patient; he verbalized understanding.
[2020-05-18] VITALS (17 sets, daily range): BP systolic 98–143; BP diastolic 52–73; PULSE 80–97; RESP 14–20; TEMP 36.3–37.3; O2SAT 94–98
[2020-05-18] MEDS: ANTIHEMOPHILIC FACTOR/VWF 600 UNIT VIAL 1832 UNIT IV ×3 (00:19→17:00)
[2020-05-18] MEDS: OXYCODONE IR 10 MG TABLET PO ×8 (00:19→23:56)
[2020-05-18] MEDS: HYDROMORPHONE 0.5 MG INJ IV ×6 (00:31→20:58)
[2020-05-18] MEDS: hydrOXYzine pamoate 25 MG CAPSULE PO ×2 (00:31→07:46)
--- NOTE | 2020-05-18 05:46 | PC.NURSE ---
Addendum entered by Caitlin Johnson R.N. 05/18/20 06:33: LAb reported H&H of 6.6/19.2 at 0625, notified SUZANNE Zhang, she stated that she would put in orders for Blood. Addendum entered by Caitlin Johnson R.N. 05/18/20 05:55: Josefina CDI Original Note: Pt reporting pain8-9/10, requesting prn oxycodone, dilaudid and vistaril with only mild improvement. Pt has been awake for most of the night and snacking. BGC at 0200 was 201.
[2020-05-18 06:04] LABS: Mean Corpuscular HGB Conc 34.2 % (30-36); Mean Corpuscular Hemoglobin 33.9 PG (26-34); Platelet Count 171 X10^3/uL (150-400); Red Blood Cell Count 1.94 X10^6/uL (4.5-5.9); Red Cell Distribution Width 14.1 % (11.6-14.8); White Blood Cell Count 7.4 X10^3/uL (4.5-11.0)
[2020-05-18 06:18] LABS: BUN Creatinine Ratio 33.3 (6-22); Blood Urea Nitrogen 14 mg/dL (9-20); Calcium 8.5 mg/dL (8.4-10.2); Carbon Dioxide 36 mmol/L (22-32); Chloride 97 mmol/L (98-107); Estimated Glomerular Filt Rate > 60.0 mL/min (>60); Glucose 144 mg/dL (70-100); HEMOLYSIS 29 (0-50); Magnesium 1.7 mg/dL (1.6-2.3); Potassium 4.1 mmol/L (3.4-5.1); Sodium 131 mmol/L (137-145)
[2020-05-18 06:28] LABS: Hematocrit 19.2 % (41-53); Hemoglobin 6.6 g/dL (13.5-17.5)
--- NOTE | 2020-05-18 06:33 | PM.EVENT ---
Event Note Event Note: Critical low H and H 6.6/19.2. I have ordered 2 units PRBC. Patient has a history of VonWillebrands.
[2020-05-18] MEDS: ACETAMINOPHEN 325 MG TABLET 975 MG PO ×3 (07:45→20:38)
--- NOTE | 2020-05-18 07:47 | P.PN_ITS ---
Subjective Subjective Date Patient Seen: 05/18/20 Time Patient Seen: 07:47 Interval history: The patient reports he is comfortable. He has 14 steps up from his main floor to the kitchen in his house. This will make transfer home difficult. He is not symptomatic from his drop in hematocrit, stating he feels about the same as he does normally. Exam Vital Signs (past 8 hours): - 05/18/20 00:17 05/18/20 00:20 05/18/20 03:52 Temperature 97.3 F L 98.2 F Pulse Rate 86 81 Respiratory Rate 20 20 Blood Pressure 98/56 L 102/60 Pulse Oximetry 95 95 97 05/18/20 05:00 Temperature Pulse Rate Respiratory Rate Blood Pressure Pulse Oximetry 97 Oxygen Delivery Method Room Air Oxygen Flow Rate 0 Narrative Exam Narrative: Left thigh wound is dressed with no drainage on the bandage. Thigh and calf are soft. Light touch and motion are intact in the left lower extremity. Objective Labs Result Diagrams: 05/18/20 05:30 05/18/20 05:30 Labs: Laboratory Results - last 24 hr 05/16/20 05/18/20 05/18/20 05:00 05:30 05:30 WBC 7.4 RBC 1.94 L Hgb 6.6 L* Hct 19.2 L* MCV 99.0 MCH 33.9 MCHC 34.2 RDW 14.1 Plt Count 171 Sodium 131 L Potassium 4.1 Chloride 97 L Carbon Dioxide 36 H BUN 14 Creatinine 0.42 L Estimated GFR > 60.0 BUN/Creatinine Ratio 33.3 H Glucose 144 H D Calcium 8.5 Magnesium 1.7 Blood Type O Positive Antibody Screen Negative Crossmatch See Detail Assessment & Plan Post-op Postoperative Procedures: Procedures Operation Date: 05/16/20 08:00 Actual Procedures Side Surgeon p ORIF Hip DHS Left Kevin Miller MD Postoperative day: 2 Postoperative status: doing well and anemia Postoperative status narrative: The patient is postoperative day 2 status post left dynamic hip screw fixation of an intertrochanteric fracture. He has been ambulatory on flat ground but 14 stairs is a significant challenge. He is receiving replacement for von Willebrand's factor. He has had a relatively small drop in his hemoglobin and hematocrit overnight however he is now significantly anemic. Diabetes and liver condition are being addressed by the hospitalist. Postoperative plan: routine post-op care and other (Transfusion of 2 packed red cell units.) Postoperative plan narrative: He will be receiving 2 units of packed red blood cells this morning. We will continue the von Willebrand's factor replacement. As noted yesterday, the recommendations for this after major surgery are for 3-5 days postoperatively. It is currently postoperative day 2. Once his hematocrit stabilizes we should be able to stop the factor replacement and consider discharge. I do not plan to place him on DVT prophylaxis because of his bleeding condition. He likely will require transfer to residential because of his home situation. Time Spent With Patient Time with patient: less than 15 minutes Quality VTE Deep Vein Thrombosis/Pulmonary Embolism Present on Admission: No
[2020-05-18] MEDS: SODIUM CHLORIDE 0.9% FLUSH 10 ML IV ×2 (07:52→19:38)
[2020-05-18] MEDS: METFORMIN XR 500 MG TABLET 1500 MG PO (08:37)
[2020-05-18] MEDS: FUROSEMIDE 20 MG TABLET PO (08:37)
[2020-05-18] MEDS: POTASSIUM CHLORIDE 10 MEQ TAB PO (08:38)
[2020-05-18] MEDS: glipiZIDE 5 MG TABLET 10 MG PO (08:41)
[2020-05-18] MEDS: DOCUSATE 100 MG CAPSULE PO ×2 (08:41→20:39)
[2020-05-18] MEDS: NICOTINE 21 MG PATCH TOP (08:43)
[2020-05-18] MEDS: NYSTATIN SUSP 500,000 UNIT/5 ML UDC 500000 UNIT PO ×4 (08:43→20:39)
[2020-05-18] MEDS: polyethylene glycoL 3350 17 GM POWD.PACK PO (08:44)
--- NOTE | 2020-05-18 09:00 | PT-IP ANOTE ---
Pt on hold due to Hemoglobin 6.6 and Hematocrit 19.2 , pt will be given blood, will check back on pt tomorrow.
--- NOTE | 2020-05-18 09:26 | CM.DPC ---
Addendum entered by Rochelle Ramachandran R.N. 05/18/20 15:15: Met with patient regarding plan. Brought in brochure from [facility] for him to review. He is happy about plan. Asked him if he had friends or family to transport him when he is ready for discharge. Patient stated, he has some friends that can take him over. Patient stated, he thinks that he will be ready to go by . Will continue to check in, and keep Mine at [facility] updated. Addendum entered by Rochelle Ramachandran R.N. 05/18/20 14:05: Mine from [facility] called. She is requesting O.T. note, she did not think that she received it yesterday. Let her know that this case operator will fax over note. O.T. and P.T. have not been able to work with patient today due to him getting blood. Included in fax, O.T. note from yesterday, and recent vitals. Updated Dr. Burgess that last COVID was on 05-15, so she will order another. Mine is not concerned about getting authorization for his insurance. She mentioned that she has worked with them before. Original Note: DCP Cont: Faxed over latest P.T/O.T. note from yesterday, to [facility]. Spoke to Mine, and stated, they are most likely to accept. She wanted to ensure that he will not need any further transfusions at discharge, and will need an updated COVID within 24 hours. She is working on insurance authorization today. P: DCP to follow. Will discuss at team rounds. [facility] is working on insurance authorization, and may be able to discharge tomorrow, if all is in place, as well as updated COVID test. Rochelle Ramachandran RN/[employer]
--- NOTE | 2020-05-18 10:18 | OT.IPNOTE ---
Pt has low HH 6.6/19.2 therefore hold this AM and check on pt in PM after pt receives blood.
--- NOTE | 2020-05-18 15:13 | PM.PN.1 ---
Subjective Subjective Date Patient Seen: 05/18/20 Interval history: Oz Bernardo is a 59-year-old male with a past medical history significant for uncontrolled diabetes mellitus type 2, recently started insulin, severe weight loss due to insulin deficiency, Von Willebrand's disease and peripheral edema who presented to the ED after he slipped and fell down a short flight of stairs landing on his left hip sustaining a left intertrochanteric fracture. Patient is status post left hip ORIF on 05/16/[address] Miller. He reports hip pain controlled with medications. He is getting 2 units PRBC due to drop in hemoglobin and hematocrit. Exam Vital Signs (past 8 hours): - 05/18/20 08:00 05/18/20 09:36 05/18/20 09:53 Temperature 98 F 98.6 F 98.1 F Pulse Rate 82 85 84 Respiratory Rate 18 16 16 Blood Pressure 112/65 98/52 L 108/61 Pulse Oximetry 97 05/18/20 11:59 05/18/20 13:40 05/18/20 14:00 Temperature 98.1 F 98.5 F 98.0 F Pulse Rate 80 97 H 84 Respiratory Rate 16 14 16 Blood Pressure 107/66 131/67 143/67 H Pulse Oximetry 05/18/20 14:01 Temperature Pulse Rate Respiratory Rate Blood Pressure Pulse Oximetry 97 Oxygen Delivery Method Room Air Oxygen Flow Rate 0 Narrative Exam Narrative: General: Alert and pleasant male in no acute distress Lungs: Clear to auscultation Heart: Regular rhythm Abdomen: Soft Extremities: Moderate bilateral pretibial pitting edema, chronic Neurological: Sensorium intact, nonfocal Musculoskeletal: Left hip dressing clean and dry Objective Labs Result Diagrams: 05/18/20 05:30 05/18/20 05:30 Labs: Laboratory Results - last 24 hr 05/16/20 05/18/20 05/18/20 05:00 05:30 05:30 WBC 7.4 RBC 1.94 L Hgb 6.6 L* Hct 19.2 L* MCV 99.0 MCH 33.9 MCHC 34.2 RDW 14.1 Plt Count 171 Sodium 131 L Potassium 4.1 Chloride 97 L Carbon Dioxide 36 H BUN 14 Creatinine 0.42 L Estimated GFR > 60.0 BUN/Creatinine Ratio 33.3 H Glucose 144 H D Calcium 8.5 Magnesium 1.7 Blood Type O Positive Antibody Screen Negative Crossmatch See Detail Assessment & Plan Assessment & Plan narrative: Oz Bernardo is a 59-year-old male with a past medical history significant for uncontrolled diabetes mellitus type 2, recently started insulin, weight loss, Von Willebrand's disease and peripheral edema who presented to the ED after he slipped and fell down a short flight of stairs landing on his left hip sustaining a left intertrochanteric fracture. 1. Acute pathological left intratrochanteric hip fracture, status post left hip ORIF, present on admission. Active. -Patient presented after ground level fall slipping down stairs on to hard asphalt with left hip pain and inability to ambulate. -Left hip x-ray demonstrated minimally displaced left intertrochanteric hip fracture. -Continue vitamin D3 and calcium supplementation. Patient will need be treated for osteoporosis as an outpatient by PCP or orthopedic surgery. -Orthopedic surgery consulted, Dr. Miller, who performed left hip ORIF. Continue postoperative management, pain control and Von Willebrand's factor as below per Orthopedic surgery. -Continue physical and occupational therapy evaluation and treatment. 2. Acute blood loss anemia on anemia of chronic disease, present on admission. Active. -Initial hemoglobin 12.9 and at baseline. Hemoglobin continues to trend down likely due to slow oozing in hip as patient has Von Willebrand's disease and continue Von Willebrand's factor as below. Transfusion goal < 7.0. Continue to monitor vitals and telemetry closely. -transfuse 2 units PRBC for hemoglobin 6.6 and hematocrit 19.2 -Continue to monitor CBC daily. 3. Von Willebrand's disease, chronic, present on admission. Stable. -Continue on Von Willebrand factor every 8 hours for 3 to 5 days postoperatively depending upon clinical course per Orthopedic surgery. 4. Diabetes mellitus type 2, insulin using, present on admission. Active. Diabetes Type 2, currently under control, present on admission -Hemoglobin A1c > 14% on 05/12/2020. -Continue Lantus 20 units twice daily. -Continue ACHS blood glucose checks and high-dose correctional scale insulin. -Continue carbohydrate consistent/heart healthy diet. 5. Hyponatremia and hypokalemia, acuity unclear, present on admission. Resolving. -Initial sodium level 131 and potassium level 2.9. Sodium and potassium trending up. -Received IV and oral potassium in the ED and NS with 40 mEq KCl at 75 mL/hr until patient adequately hydrated and potassium chloride 40 mEq x3. Continue home potassium chloride 10 mEq daily. -Continue to monitor sodium and potassium and replete as necessary. 6. 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 -Patient reports he quiet drinking in 12/2019. He prior to that reports drinking 2-3 malt beverages per day and heavy drinking in his 30s. -He previously had opiate dependence for urine half due to back pain on Vicodin and subsequent has requires higher doses of pain medication. -Patient has peripheral edema with unclear etiology and likely due to liver disease versus CHF and outpatient workup has been initiated per PCP. Continue home furosemide 20 mg daily. 7. Severe protein calorie malnutrition, possibly acute on chronic, present on admission. Active. -BMI 18.7. -Consulted dietitian we appreciate her time and recommendations. Code status: Full code VTE prophylaxis: Contraindicated due to reported von Willebrand's disease COVID-19 05/26/2020 ordered Disposition: Patient remains hospitalized likely several days until blood counts are stable and will undoubtedly need [facility] for [facility]. Quality VTE Deep Vein Thrombosis/Pulmonary Embolism Present on Admission: No
--- NOTE | 2020-05-18 15:47 | OT.IP.TRT ---
Current Diagnoses Type 2 diabetes mellitus without complications (05/15/20) Nondisplaced intertrochanteric fracture of left femur, initial encounter for closed fracture (05/15/20) Surgery Performed Operation Date: 05/16/20 08:00 Actual Procedures p ORIF Hip DHS(Left) - Kevin Miller MD Occupational Therapy Treatment Note M2 OT-IP Current Condition Start: 05/17/20 15:13 Freq: Status: Active Protocol: Document 05/17/20 15:13 CGR (Rec: 05/17/20 15:30 CGR [id number]) Occupational Therapy Current Condition Current Condition Evaluation Date 05/17/20 Treatment Diagnosis GLF with L hip fx s/p ORIF of the L hip. Diagnosis Onset Date 05/15/20 Weight Bearing Status Weight Bearing Status Weight Bear as Tolerated M3 OT- IP Subjective and Pain Start: 05/17/20 15:13 Freq: Status: Active Protocol: Document 05/18/20 15:00 CCC (Rec: 05/18/20 16:13 [facility] [id number]) OT- Subjective Occupational Therapy Visit Type Type Treatment Note Visit Start Time 15:00 Visit Stop Time 15:47 Total Visit Minutes 47 Occupational Therapy Visit Comments Patient Comments Pt still getting blood but having to use the toilet. Patient/Caregiver Goals TO go to skilled rehab prior to going home. OT Pain Assessment Pain When Pain Assessed During Mobility Pain Present Pain Present Pain Reported Location Left Hip Intensity 5 Scale Used Numeric (0 - 10) M4 OT- IP ADL's Start: 05/17/20 15:13 Freq: Status: Active Protocol: Document 05/18/20 15:00 [facility] (Rec: 05/18/20 16:13 [facility] [id number]) OT [id number] Comments OT Self-Feeding Comments Not at meal time. OT ADL-Grooming Comments OT Grooming Comments Not performed. OT ADL-Dressing General Eval Lower Body Dressing Ability Total Assistance Areas Needing Assistance Socks OT ADL-Toileting General Evaluation Toileting Ability Maximum Assistance Areas Needing Assistance Perform Perineal Hygiene Devices Toileting Assistive Devices Commode,Grab Bars Comments OT Toileting Comments Pt has an extensive bowel movement that partial got on his gown and needing assist to help clean for completeness. Nursing aid came in to assist as well. OT ADL-Bathing Bathing Type Bathing Type Sponge Bath General Evaluation Bathing Ability Moderate Assistance Comments OT Bathing Comments Pt able to sponge off upper body and assist for pericare needs. M5 OT- IP IADL's Start: 05/17/20 15:13 Freq: Status: Active Protocol: Document 05/17/20 15:13 CGR (Rec: 05/17/20 15:30 CGR [id number]) OT-Instrumental Activities of Daily Living Deficits IADL Deficits Identified No Deficits Home Safety Awareness Awareness of Need for Assistance at Home Good Awareness Ability to Problem Solve Emergency Able to Problem Solve Situations Medication Management Medication Management No Deficits Identified Money Management Money Management No Deficits Identified M6 OT- IP Functional Cognition Start: 05/17/20 15:13 Freq: Status: Active Protocol: Document 05/18/20 15:00 [facility] (Rec: 05/18/20 16:13 [facility] [id number]) Cognitive Factors Limiting Selfcare Function Cognitive Comments Cognitive Assessment Comments Pt at baseline with no deficits notes. Pt needing occasional vc for FWW safety. M7 OT- IP Mobility and Balance Start: 05/17/20 15:13 Freq: Status: Active Protocol: Document 05/18/20 15:00 [facility] (Rec: 05/18/20 16:13 [facility] [id number]) OT- Bed Mobility Assessment Scooting Scooting to Edge of Bed Moderate Assistance OT-Transfer Assessment Sit to and From Stand Sit to and from Stand Moderate Assistance Transfers Transfer Ability Minimal Assistance,Moderate Assistance Technique Transfer Destination Bed,Toilet Devices Transfer Assistive Devices Gait Belt,Front Wheeled Walker Comments Mobility Comments MODA to help get his LLE to the edge of the bed, MODA to stand with bed raised. JOSE FRANCISCO to MODA for balance with FWW and vc for sequencing for safety of FWW. OT- Balance Assessment Sitting Balance and Reactions Static Sitting Balance Ability Good Dynamic Sitting Balance Ability Fair M8 OT- IP Objective Assessments Start: 05/17/20 15:13 Freq: Status: Active Protocol: Document 05/17/20 15:13 CGR (Rec: 05/17/20 15:30 CGR [email or web address]) OT Gross Range of Motion Upper Extremity Range of Motion Assessment Within Functional Limits OT Strength Upper Extremity Strength Assessment Within Functional Limits OT- Coordination Assessment Upper Extremity Finger to Nose Test Within Functional Limits Finger Tapping Test Within Functional Limits OT-Muscle Tone Assessment Muscle Tone WNL Yes OT Sensation Assessment Edema Edema Absent M9 OT- IP Assessment and Plan Start: 05/17/20 15:13 Freq: Status: Active Protocol: Document 05/18/20 15:00 [facility] (Rec: 05/18/20 16:13 [facility] [id number]) OT Summary Assessment and Plan Potential Rehabilitation Potential Excellent Analytic Complexity at Evaluation Low Summary OT Impairments Pain,Balance,Functional Mobility,Grooming,Dressing, Toileting,Bathing,Toilet Transfers,Shower Transfers, Activity Tolerance Progress Towards Goals Progressing Toward Goals Assessment Summary Pt given blood today due to low H and H. Pt able to tolerate toileting however still needing MODA for mobility needs and extensive assist for hygiene needs at this time. Pt would benefit from skilled rehab prior to going home. Goals Grooming Goal Independent Dressing Goal Independent Toileting Goal Independent Bathing Goal Independent Toilet Transfer Goal Independent Shower Transfer Goal Independent Days to Meet Goals 19 Frequency of Treatment Frequency Of Treatment Once a Day Treatment Plan OT Treatment Plan ADL Training,Functional Mobility,Patient/Family Education,Discharge Planning Other Treatment Recommendations and Next shower Treatment Focus Discharge Recommendations OT Discharge Recommendations SNF Rehab Home Equipment Needs TBD Transportation Needs at Discharge Private Vehicle,Wheelchair/ Cabulance
[2020-05-18] MEDS: INSULIN ASPART 100 UNIT/ML INSULN PEN SUBCUT ×2 (16:59→20:39)
[2020-05-18 20:40] LABS: Hematocrit 26.3 % (41-53); Hemoglobin 9.3 g/dL (13.5-17.5); Mean Corpuscular HGB Conc 35.2 % (30-36); Mean Corpuscular Hemoglobin 33.4 PG (26-34); Mean Corpuscular Volume 94.9 fL (80-100); Platelet Count 150 X10^3/uL (150-400); Red Blood Cell Count 2.77 X10^6/uL (4.5-5.9); Red Cell Distribution Width 15.3 % (11.6-14.8); White Blood Cell Count 7.6 X10^3/uL (4.5-11.0)
[2020-05-18] MEDS: INSULIN GLARGINE 100 UNIT/ML 3ML PEN 20 UNIT SUBCUT (20:40)
[2020-05-18 22:16] LABS: COVID19 -Nasal RAPID Negative (Negative)
[2020-05-19] VITALS (13 sets, daily range): BP systolic 97–127; BP diastolic 63–77; PULSE 84–101; RESP 16–22; TEMP 37–37.8; O2SAT 94–98
[2020-05-19] MEDS: ANTIHEMOPHILIC FACTOR/VWF 600 UNIT VIAL 1832 UNIT IV ×3 (00:45→17:02)
[2020-05-19] MEDS: HYDROMORPHONE 0.5 MG INJ IV ×6 (03:15→22:55)
[2020-05-19] MEDS: hydrOXYzine pamoate 25 MG CAPSULE PO (03:17)
[2020-05-19 05:53] LABS: Hematocrit 26.4 % (41-53); Hemoglobin 9.3 g/dL (13.5-17.5); Mean Corpuscular HGB Conc 35.3 % (30-36); Mean Corpuscular Hemoglobin 33.6 PG (26-34); Platelet Count 160 X10^3/uL (150-400); Red Blood Cell Count 2.77 X10^6/uL (4.5-5.9); Red Cell Distribution Width 15.2 % (11.6-14.8); White Blood Cell Count 5.9 X10^3/uL (4.5-11.0)
--- NOTE | 2020-05-19 06:42 | PM.PNPO.1 ---
Subjective Subjective Date Patient Seen: 05/19/20 Time Patient Seen: 06:43 Interval history: The patient has no new complaints. Exam Vital Signs (past 8 hours): - 05/18/20 23:29 05/19/20 00:00 05/19/20 03:00 Temperature 98.9 F 98.6 F Pulse Rate 95 H 84 Respiratory Rate 16 16 Blood Pressure 118/73 124/77 Pulse Oximetry 98 98 94 05/19/20 04:00 Temperature Pulse Rate Respiratory Rate Blood Pressure Pulse Oximetry 94 Oxygen Delivery Method Room Air Oxygen Flow Rate 0 Narrative Exam Narrative: Left thigh is moderately swollen but not tense. Wound is dressed with no drainage on the bandage. Calf is soft. Light touch and motion are intact in the left foot. Objective Labs Result Diagrams: 05/19/20 05:19 05/18/20 05:30 Labs: Laboratory Results - last 24 hr 05/16/20 05/18/20 05/18/20 05:00 20:34 20:50 WBC 7.6 RBC 2.77 L Hgb 9.3 L Hct 26.3 L MCV 94.9 D MCH 33.4 MCHC 35.2 RDW 15.3 H Plt Count 150 COVID-19 PCR Negative Blood Type O Positive Antibody Screen Negative Crossmatch See Detail 05/19/20 05:19 WBC 5.9 RBC 2.77 L Hgb 9.3 L Hct 26.4 L MCV 95.0 MCH 33.6 MCHC 35.3 RDW 15.2 H Plt Count 160 COVID-19 PCR Blood Type Antibody Screen Crossmatch Assessment & Plan Post-op Postoperative Procedures: Procedures Operation Date: 05/16/20 08:00 Actual Procedures Side Surgeon p ORIF Hip DHS Left Kevin Miller MD Postoperative day: 3 Postoperative status: doing well and anemia Postoperative status narrative: The patient is generally stable from a surgical standpoint. His blood loss was beginning to stabilize but unfortunately his hematocrit was quite low so he did receive 2 units of packed red blood cells yesterday. We are continuing the anti hemophiliac treatments. Diabetes and other medical considerations are under the care of the hospitalists. Postoperative plan: routine post-op care and ambulate Postoperative plan narrative: We will continue physical therapy today. Therapy was held yesterday due to his anemia. He likely will require long term facility rehabilitation after discharge. We will continue the von Willebrand's factor replacements. If his hematocrit is stabilized tomorrow, I believe we can discontinue these and he can be transferred. If his blood loss continues, he should receive the full 5 days postoperatively of treatments. Time Spent With Patient Time with patient: less than 15 minutes Quality VTE Deep Vein Thrombosis/Pulmonary Embolism Present on Admission: No
[2020-05-19] MEDS: OXYCODONE IR 10 MG TABLET PO ×4 (07:41→21:39)
[2020-05-19] MEDS: ACETAMINOPHEN 325 MG TABLET 975 MG PO ×3 (07:42→21:38)
[2020-05-19] MEDS: polyethylene glycoL 3350 17 GM POWD.PACK PO (07:43)
[2020-05-19] MEDS: DOCUSATE 100 MG CAPSULE PO ×2 (07:43→21:32)
[2020-05-19] MEDS: FUROSEMIDE 20 MG TABLET PO (07:43)
[2020-05-19] MEDS: NICOTINE 21 MG PATCH TOP (07:43)
[2020-05-19] MEDS: POTASSIUM CHLORIDE 10 MEQ TAB PO (07:46)
[2020-05-19] MEDS: METFORMIN XR 500 MG TABLET 1500 MG PO (07:47)
[2020-05-19] MEDS: NYSTATIN SUSP 500,000 UNIT/5 ML UDC 500000 UNIT PO ×3 (07:47→21:32)
[2020-05-19] MEDS: glipiZIDE 5 MG TABLET 10 MG PO (07:47)
[2020-05-19] MEDS: INSULIN ASPART 100 UNIT/ML INSULN PEN SUBCUT ×2 (08:25→21:38)
[2020-05-19] MEDS: INSULIN GLARGINE 100 UNIT/ML 3ML PEN 20 UNIT SUBCUT ×2 (08:25→21:38)
--- NOTE | 2020-05-19 09:43 | PC.NURSE ---
Day Shift- Pt A&OX4, states pain 7/10 this AM to left hip, constant aching with intermittent intensity of throbbing and burning. Pain management plan discussed. PRN Oxycodone given at 0740, pain decreased to 5/10 with reassessment. Ice pack intermittent to left hip area encouraged. left hip bulky gauze dressing clean and dry. 2 spots of dressing around edge do not have tape securing dressing therefore integrity compromised. Pt plans to have shower with OT. left hip dressing removed without difficulty. Partial visibility of incision with jessica intact. Covered with medicated gauze that was left in place. No drainage with cleansing surrounding incision area with NS and gauze. Small amount of sero-sang drainage on old dressing. Small aquacel dressing applied. Pt tolerated well. No S/S of infection noted.
--- NOTE | 2020-05-19 10:32 | OT.IP.TRT ---
Current Diagnoses Type 2 diabetes mellitus without complications (05/15/20) Nondisplaced intertrochanteric fracture of left femur, initial encounter for closed fracture (05/15/20) Surgery Performed Operation Date: 05/16/20 08:00 Actual Procedures p ORIF Hip DHS(Left) - Kevin Miller MD Occupational Therapy Treatment Note M2 OT-IP Current Condition Start: 05/17/20 15:13 Freq: Status: Active Protocol: Document 05/17/20 15:13 CGR (Rec: 05/17/20 15:30 CGR [id number]) Occupational Therapy Current Condition Current Condition Evaluation Date 05/17/20 Treatment Diagnosis GLF with L hip fx s/p ORIF of the L hip. Diagnosis Onset Date 05/15/20 Weight Bearing Status Weight Bearing Status Weight Bear as Tolerated M3 OT- IP Subjective and Pain Start: 05/17/20 15:13 Freq: Status: Active Protocol: Document 05/19/20 10:35 [facility] (Rec: 05/19/20 10:47 [facility] [id number]) OT- Subjective Occupational Therapy Visit Type Type Treatment Note Visit Start Time 09:33 Visit Stop Time 10:32 Total Visit Minutes 59 Occupational Therapy Visit Comments Patient Comments Pt wanting to shower. Patient/Caregiver Goals To go to acute inpt rehab. OT Pain Assessment Pain When Pain Assessed During Mobility Pain Present Pain Present Pain Reported Location Left Hip Intensity 4 Scale Used Numeric (0 - 10) M4 OT- IP ADL's Start: 05/17/20 15:13 Freq: Status: Active Protocol: Document 05/19/20 10:35 [facility] (Rec: 05/19/20 10:47 [facility] [id number]) OT ADL-Grooming Comments OT Grooming Comments NOt performed. OT ADL-Dressing General Eval Lower Body Dressing Ability Total Assistance Areas Needing Assistance Socks OT ADL-Toileting General Evaluation Toileting Ability Moderate Assistance Areas Needing Assistance Perform Perineal Hygiene Devices Toileting Assistive Devices Commode,Grab Bars Comments OT Toileting Comments Pt having another large bowel movement and as wiping from the front hit a scab on his right wrist which started to bleed and nursing called to come. Nursing cleaned and placed dressing on his wrist. Therefore pt needing assist for completeness to clean. OT ADL-Bathing Bathing Type Bathing Type Shower General Evaluation Bathing Ability Moderate Assistance Areas Needing Assistance Wash/Dry Back,Wash/Dry Perineal Area Comments OT Bathing Comments Pt having to sit for most of the shower and JOSE FRANCISCO for standing with grab bar to wash his pericare needs. Suggested at home pt will benefit from a shower chair. M5 OT- IP IADL's Start: 05/17/20 15:13 Freq: Status: Active Protocol: Document 05/17/20 15:13 CGR (Rec: 05/17/20 15:30 CGR [id number]) OT-Instrumental Activities of Daily Living Deficits IADL Deficits Identified No Deficits Home Safety Awareness Awareness of Need for Assistance at Home Good Awareness Ability to Problem Solve Emergency Able to Problem Solve Situations Medication Management Medication Management No Deficits Identified Money Management Money Management No Deficits Identified M6 OT- IP Functional Cognition Start: 05/17/20 15:13 Freq: Status: Active Protocol: Document 05/19/20 10:35 [facility] (Rec: 05/19/20 10:47 [facility] [id number]) Cognitive Factors Limiting Selfcare Function Cognitive Comments Cognitive Assessment Comments Occasional vc for safety to push up with his hand on surface sitting on and reach back with his hand before sitting down. M7 OT- IP Mobility and Balance Start: 05/17/20 15:13 Freq: Status: Active Protocol: Document 05/19/20 10:35 [facility] (Rec: 05/19/20 10:47 [facility] [id number]) OT- Bed Mobility Assessment Supine to Sit Supine to Sit Assist Moderate Assistance,Bedrails Scooting Scooting to Edge of Bed Minimal Assistance OT-Transfer Assessment Sit to and From Stand Sit to and from Stand Moderate Assistance Transfers Transfer Ability Minimal Assistance,Moderate Assistance Technique Transfer Destination Bed,Shower Stall,Toilet Devices Transfer Assistive Devices Gait Belt,Front Wheeled Walker Comments Mobility Comments Continued MODA for LLE management for bed mobility, sit to stand and assist for balance while stepping over the threshold of the shower. Pt at times just CGA with FWW and overall doing better with activity tolerance when on his feet for FWW. OT- Balance Assessment Sitting Balance and Reactions Static Sitting Balance Ability Normal Dynamic Sitting Balance Ability Good Standing Balance and Reactions Static Standing Balance Ability Fair M8 OT- IP Objective Assessments Start: 05/17/20 15:13 Freq: Status: Active Protocol: Document 05/17/20 15:13 CGR (Rec: 05/17/20 15:30 CGR [id number]) OT Gross Range of Motion Upper Extremity Range of Motion Assessment Within Functional Limits OT Strength Upper Extremity Strength Assessment Within Functional Limits OT- Coordination Assessment Upper Extremity Finger to Nose Test Within Functional Limits Finger Tapping Test Within Functional Limits OT-Muscle Tone Assessment Muscle Tone WNL Yes OT Sensation Assessment Edema Edema Absent M9 OT- IP Assessment and Plan Start: 05/17/20 15:13 Freq: Status: Active Protocol: Document 05/19/20 10:35 [facility] (Rec: 05/19/20 10:47 [facility] [id number]) OT Summary Assessment and Plan Potential Rehabilitation Potential Excellent Analytic Complexity at Evaluation Low Summary OT Impairments Pain,Balance,Functional Mobility,Grooming,Dressing, Toileting,Bathing,Toilet Transfers,Shower Transfers, Activity Tolerance Progress Towards Goals Progressing Toward Goals Assessment Summary Pt doing better with activity tolerance today and able to tolerate to toileting and shower today. Pt is very motivated to get better and be independent again for all Adl and functional mobility needs . Pt would strongly benefit form inpt acute rehab prior to going home. Goals Grooming Goal Independent Dressing Goal Independent Toileting Goal Independent Bathing Goal Independent Toilet Transfer Goal Independent Shower Transfer Goal Independent Days to Meet Goals 18 Frequency of Treatment Frequency Of Treatment Once a Day Treatment Plan OT Treatment Plan ADL Training,Functional Mobility,Patient/Family Education,Discharge Planning Discharge Recommendations OT Discharge Recommendations Acute Rehab Home Equipment Needs TBD Transportation Needs at Discharge Private Vehicle,Wheelchair/ Cabulance
--- NOTE | 2020-05-19 11:16 | CM.DPC ---
DCP Inpt Rehab Cont: Per MD, pt received blood last night and remains stable today and Ortho rounded on pt as well and confirms pt stable and to be observed today to confirm no further blood needed prior to discharge with tentative plan of discharge to Inpt Rehab tomorrow. ESTEPHANIA called [facility] admissions [facility] and confirmed that they received insurance auth this morning for pt and can accept him when stable for d/c. ESTEPHANIA updated on above and confirmed that if pt is stable tomorrow then pt arriving early afternoon is acceptable. ESTEPHANIA faxed the recent COVID negative test results from yesterday 05/18/20 at 2049 and pt's home and current med list to [facility] to review. Per [facility] at In Rehab, they will need MD recommendations on pt's Humate for Von Willebrands disease in the discharge summary. ESTEPHANIA updated pt on acceptance and insurance auth approval for [facility] In[facility] bedside during MD rounds and pt very appreciative and agreeable with d/c plan and MD aware. Plan: SW to follow in the morning to confirm pt stable for d/c to Inpt Rehab at [facility] via pt's roommate's POV. SW to fax d/c summary and packet to [facility] at In Rehab including MD recommendations for pt's Humate. SAIMA Brooks
--- NOTE | 2020-05-19 11:53 | PT.IPTN ---
Current Diagnoses Type 2 diabetes mellitus without complications (05/15/20) Nondisplaced intertrochanteric fracture of left femur, initial encounter for closed fracture (05/15/20) Surgery Performed Operation Date: 05/16/20 08:00 Actual Procedures p ORIF Hip DHS(Left) - Kevin Miller MD Physical Therapy Treatment Note M2 PT-IP Current Condition Start: 05/16/20 12:13 Freq: NEEDED Status: Active Protocol: Document 05/19/20 11:23 TP (Rec: 05/19/20 14:13 TP [id number]) Physical Therapy Current Condition Current Condition Evaluation Date 05/16/20 Treatment Diagnosis ORIF left intertroch femur fracture; difficulty in walking Onset Date 05/15/20 M3 PT-IP Subjective Start: 05/16/20 12:13 Freq: NEEDED Status: Active Protocol: Document 05/19/20 11:23 TP (Rec: 05/19/20 14:13 TP [id number]) Subjective Physical Therapy Visit Type Type Treatment Note Visit Start Time 11:23 Visit Stop Time 11:53 Total Visit Minutes 30 Notes Student ISAAC Gunderson supervised by ISAAC Broussard. Number of [employer] Visits 3 Physical Therapy Visit Comments Patient Comments I just had a shower and feel much better. Therapy Pain Assessment Pain When Pain Assessed During Mobility Pain Present Pain Present Pain Reported M4 PT-IP Mobility and Gait Start: 05/16/20 12:13 Freq: NEEDED Status: Active Protocol: Document 05/19/20 11:23 TP (Rec: 05/19/20 14:13 TP [id number]) PT-Bed Mobility Assessment Supine to Sit Supine to Sit Contact Guard Assistance, Minimal Assistance,1 Person Assistance,Head of Bed Elevated Scooting Scooting to Edge of Bed Contact Guard Assistance, Minimal Assistance PT-Transfer Assessment Sit to and From Stand Sit to and from Stand Contact Guard Assistance, Minimal Assistance,1 Person Assistance Equipment Transfer Assistive Device Gait Belt,Front Wheeled Walker Orthotic/Prosthetic Devices or Brace: No Transfers Transfer Destination Chair Transfer Technique pt ambulated with FWW Transfer Ability Level of Assist Contact Guard Assistance, Minimal Assistance,1 Person Assistance,Use of Upper Extremities Comments Mobility Comments Pt reclined in bed with HOB elevated upon arrival, nursing present. Supine BP 103/62 HR 91, nonsymptomatic. Supine to sit, CGA-Fan for assist with L LE. Sitting BP 108/65 HR 92. Sit to stand, FWW MinAx1. Standing BP 118/70 HR 97. Pt ambulation into hallway and back to room, FWW CGA with verbal cues for heel- toe gait, approximately 120'. Pt uses vaulting strategy in L LE. In room, pt expressed need to use restroom. Ambulation to restroom to urinate, FWW CGA with R trunk lean on wall for during self use of urinal. Ambulation to chair FWW, CGA. Pt positioned reclined in chair with call light, warm blankes over lap and around shoulders and all other needs within reach. Pt request to change tv to channel 5 and turn up volume. Pt reminded call light beside him to his R. Pt held it up to acknowledge. Nursing notified of pt progress and pt 's bladder void present in restroom. Gait Assessment Gait Gait Assistance Required: Contact Guard Assist,1 Person Assist Distance (Feet) 120 Able to Maintain Weight Bearing Status Yes During Gait Assistive Devices Assistive Device Gait Belt,Front Wheeled Walker Orthotic/Prosthetic Devices or Brace: No Gait Deviations General Gait Pattern Antalgic,Decreased Stride Length,Decreased Feet Clearance,Flexed Trunk,Step-to Gait Factors Limiting Gait Function Factors Limiting Gait Function Decreased Activity Tolerance, Decreased Sensation,Decreased Strength,Limited Range of Motion,Pain,Poor Balance,Poor Safety Awareness Comments Gait Comments see mobility comments. Stair Climbing Assessment Comments Stair Climbing Comments Not assessed. PT-Balance Assessment Sitting Balance and Reactions Static Sitting Balance Ability Normal Dynamic Sitting Balance Ability Good Standing Balance and Reactions Static Standing Balance Ability Good Dynamic Standing Balance Ability Good Device Used FWW M5 PT-IP Objective Assessments Start: 05/16/20 12:13 Freq: NEEDED Status: Active Protocol: Document 05/16/20 15:29 AW (Rec: 05/16/20 16:11 AW [id number]) Orientation Orientation/Cognition Level of Alertness Alert Orientation Name,Day of Week,Place, Situation Language Function Ability No Deficits Noted Safety Awareness Decreased Safety Awareness Gross Range of Motion Upper Extremity ROM Assessment Within Functional Limits Lower Extremity ROM Assessment Left Impaired Strength Upper Extremity Strength Assessment Bilaterally Impaired Shoulder 4/5 Lower Extremity Strength Assessment Bilaterally Impaired Comments Strength Comments R hip 3/5; R knee 4-/5; R ankle 4-/5 Sensation Assessment Sensation Gross Sensation Right LE Impaired,Left LE Impaired Light Touch Impaired Comments Sensation Comments Dull light touch bilateral feet Muscle Tone Muscle Tone WNL Yes M6 PT-IP Treatment Start: 05/16/20 12:13 Freq: NEEDED Status: Active Protocol: Document 05/19/20 11:23 TP (Rec: 05/19/20 14:13 TP [id number]) Physical Therapy Treatment Education Education Provided Weight Bearing Status,Safety Other Treatments Other Treatment Performed Education on weightbearing status and safe use of FWW. M7 PT-IP Assessment and Plan Start: 05/16/20 12:13 Freq: NEEDED Status: Active Protocol: Document 05/19/20 11:23 TP (Rec: 05/19/20 14:13 TP [id number]) PT Summary Assessment and Plan Potential Rehabilitation Potential Good Status of Condition at Evaluation Evolving Summary Impairments Pain,ROM,Strength,Balance, Sensation,Bed Mobility, Transfers,Gait,Activity Tolerance Progress Towards Goals Slow Progress due to Pain,Slow Progress due to Medical Issues Assessment Summary Pt gait distance improved today to 120' with FWW, CGA. Pt is feeling better due to blood transfusion yesterday. Pt ambulates with vaulting technique to clear L LE due to impaired L hip extension. Vaulting decreased with duration. Cues needed to stay even with the back legs of FWW, tendency to get to step too far into the FWW. Continue acute skilled PT to improve strength, endurance, and ROM of L LE as well as overall activity tolerance for safe mobility. Will continue to reassess mobility, recommending SNF at this time. Goals Bed Mobility Goal Independent Transfer Goal Independent,Front Wheeled Walker Gait Goal Independent,Front Wheel Walker Gait Distance 200 Other Goals - up/down 7 steps with unilateral rail SBA Days to Meet Goals 10 Frequency of Treatment Frequency Of Treatment Twice a Day Treatment Plan Physical Therapy Treatment Plan Bed Mobility Training,Transfer Training,Gait Training, Therapeutic Exercise,Balance Retraining,Post Op Education, Discharge Planning,Hot or Cold Pack Other Recommendations and Next Treatment ther ex; gait training with Focus FWW; stairs when able. Recommendations To Nursing Amount of Assist Needed 1 Person Assist Discharge Recommendations PT Discharge Recommendations SNF Rehab,Acute Rehab Other Discharge Recommendations / assist and daily PT Equipment Needed for Home Before defer to rehab setting Discharge Transportation Needs at Discharge Private Vehicle,Wheelchair/ Cabulance
[2020-05-19] MEDS: SODIUM CHLORIDE 0.9% FLUSH 10 ML IV ×4 (12:18→22:56)
--- NOTE | 2020-05-19 13:41 | DIET.PN ---
Dietary Progress Note RD f/u for severe acute PCM secondary to uncontrolled DM2 c A1c >14 Pt has consumed 100% meals and ONS Ensure Enlive over past 3d c bg trending 125-275. Pt has DSME information and is very interested in PCP referral for diabetes ed at after d/c.
--- NOTE | 2020-05-19 16:00 | PC.NURSE ---
EVEN NOTE- At 1300, pt had unwitnessed fall. Pt's call light on, another RN Aisha answered call light and pt was found on his knees at the end of the bed. Pt asking for help to stand. Pt assisted to bed with 2PA using gait belt and pt able to use his right leg to stand. Using walker pt able to walk to side of bed and assisted back to bed. Pt stated he was reaching for his phone which was located on the right side of the bed. Pt was in his recliner chair on the left side of the bed in the reclined position. pt stated he was reaching for his phone and got out of the recliner chair and brought himself to the kneeling position on the floor. Pt denied falling, stumbling. Denied hitting any body part of head. Pt stated he moved himself from the middle of the bed to end of the bed which was higher by moving on his knees. Then used the call light located on the bed to call for assist. pt stated he was on the floor on his knees for a few minutes. When settled back in the bed, pt's knees were red and blanchable. Left hip dressing CDI, no visible issue noted to left leg area and no increase in pain. HR 101 bpm, RR 22bpm, BP 111/67, O2 97% on RA. Dr. Miller notified via phone of above at 1340, left message on Dr. Miller cell at 1330. no new orders at this time. Dr. Burgess notified in person at 1412 of above, no new orders.
--- NOTE | 2020-05-19 16:55 | PT-IP ANOTE ---
Pt refused pm PT tx. I just can't do anything, am having 7/10 pain (supine in bed), just got some pain meds not long ago. I am leaving tomorrow but not sure the time. Maybe we can do more tomorrow.
--- NOTE | 2020-05-19 16:56 | PM.PN.1 ---
Subjective Subjective Date Patient Seen: 05/19/20 Interval history: Patient reports excellent pain control. Earlier today he was reaching for the television control and slipped os slumping to the floor. He did not pass out. He had no loss of consciousness. He did not hit his head. Patient is resting comfortably now and is eager for discharge to rehab tomorrow. He has had no evidence of additional bleeding. He received 2 units of blood last evening and hemoglobin appears to be stable. His right leg is somewhat swollen but there is no evidence to suggest ongoing bleeding. The patient continues to get Von Willebrand factor and will get his last dose tomorrow. Patient is noted to have low-grade fever. Continue to monitor him closely Exam Vital Signs (past 8 hours): - 05/19/20 12:00 05/19/20 13:24 05/19/20 13:25 Temperature 99.1 F Pulse Rate 97 H 101 H Respiratory Rate 16 22 Blood Pressure 118/70 111/67 Pulse Oximetry 97 97 05/19/20 15:45 05/19/20 16:00 Temperature 100.1 F H Pulse Rate 95 H Respiratory Rate 18 Blood Pressure 125/74 Pulse Oximetry 98 98 Oxygen Delivery Method Room Air Oxygen Flow Rate 0 Narrative Exam Narrative: Pleasant cachectic male in no obvious distress Lungs: Clear to auscultation Cardiac exam: Regular rate and rhythm normal S1-S2 Abdomen: Soft nontender nondistended Extremities: Right leg with tense edema, no pain on palpation Objective Labs Result Diagrams: 05/19/20 05:19 05/18/20 05:30 Labs: Laboratory Results - last 24 hr 05/16/20 05/18/20 05/18/20 05:00 20:34 20:50 WBC 7.6 RBC 2.77 L Hgb 9.3 L Hct 26.3 L MCV 94.9 D MCH 33.4 MCHC 35.2 RDW 15.3 H Plt Count 150 COVID-19 PCR Negative Crossmatch See Detail 05/19/20 05:19 WBC 5.9 RBC 2.77 L Hgb 9.3 L Hct 26.4 L MCV 95.0 MCH 33.6 MCHC 35.3 RDW 15.2 H Plt Count 160 COVID-19 PCR Crossmatch Assessment & Plan Assessment & Plan narrative: 1,Acute pathological left intratrochanteric hip fracture, status post left hip ORIF, present on admission. Active. -Patient presented after ground level fall slipping down stairs on to hard asphalt with left hip pain and inability to ambulate. -Left hip x-ray demonstrated minimally displaced left intertrochanteric hip fracture. -Continue vitamin D3 and calcium supplementation. Patient will need be treated for osteoporosis as an outpatient by PCP or orthopedic surgery. -Orthopedic surgery consulted, Dr. Miller, who performed left hip ORIF. Continue postoperative management, pain control and Von Willebrand's factor as below per Orthopedic surgery. -Continue physical and occupational therapy evaluation and treatment. -patient has no evidence of further bleeding, he will receive his last dose of on [place] brand factor tomorrow per, it is anticipated he will be discharged to retirement tomorrow. 2. Acute blood loss anemia present on admission. Active. -Initial hemoglobin 12.9 and at baseline. Hemoglobin continues to trend down likely due to slow oozing in hip as patient has Von Willebrand's disease and continue Von Willebrand's factor as below. Transfusion goal < 7.0. Continue to monitor vitals and telemetry closely. -transfuse 2 units PRBC for hemoglobin 6.6 and hematocrit 19.2 -Continue to monitor CBC daily. -no further evidence of bleeding 3. Von Willebrand's disease, chronic, present on admission. Stable. -Continue on Von Willebrand factor every 8 hours for 3 to 5 days postoperatively depending upon clinical course per Orthopedic surgery. -last dose of Von Willebrand factor to be recieved tomorrow 4. Diabetes mellitus type 2, insulin using, present on admission. Active. Diabetes Type 2, currently under control, present on admission -Hemoglobin A1c > 14% on 05/12/2020. -Continue Lantus 20 units twice daily. -Continue [facility] blood glucose checks and high-dose correctional scale insulin. -Continue carbohydrate consistent/heart healthy diet. 5. Hyponatremia and hypokalemia, acuity unclear, present on admission. Resolving. -Initial sodium level 131 and potassium level 2.9. Sodium and potassium trending up. -Received IV and oral potassium in the ED and NS with 40 mEq KCl at 75 mL/hr until patient adequately hydrated and potassium chloride 40 mEq x3. Continue home potassium chloride 10 mEq daily. -Continue to monitor sodium and potassium and replete as necessary -IV fluids discontinued. 6. 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 -Patient reports he quiet drinking in 12/2019. He prior to that reports drinking 2-3 malt beverages per day and heavy drinking in his 30s. -He previously had opiate dependence for urine half due to back pain on Vicodin and subsequent has requires higher doses of pain medication. -Patient has peripheral edema with unclear etiology and likely due to liver disease versus CHF and outpatient workup has been initiated per PCP. Continue home furosemide 20 mg daily. 7. Severe protein calorie malnutrition, possibly acute on chronic, present on admission. Active. -BMI 18.7. -Consulted dietitian we appreciate her time and recommendations. Code status: Full code VTE prophylaxis: Contraindicated due to reported von Willebrand's disease COVID-19 05/26/2020 ordered Disposition: Patient remains hospitalized likely several days until blood counts are stable and will undoubtedly need retirement facility for rehabilitation. Quality VTE Deep Vein Thrombosis/Pulmonary Embolism Present on Admission: No
[2020-05-20] VITALS: O2SAT 96
[2020-05-20] MEDS: ANTIHEMOPHILIC FACTOR/VWF 600 UNIT VIAL 1832 UNIT IV ×2 (00:27→08:28)
[2020-05-20] MEDS: OXYCODONE IR 10 MG TABLET PO ×3 (03:07→13:31)
[2020-05-20 03:09] VITALS: BP 98/54; PULSE 73; RESP 16; TEMP 36.8; O2SAT 97
[2020-05-20 04:00] VITALS: O2SAT 97
[2020-05-20] MEDS: HYDROMORPHONE 0.5 MG INJ IV ×2 (04:53→08:43)
[2020-05-20 05:51] LABS: Hemoglobin 8.3 g/dL (13.5-17.5); Mean Corpuscular HGB Conc 34.4 % (30-36); Mean Corpuscular Hemoglobin 33.1 PG (26-34); Mean Corpuscular Volume 96.2 fL (80-100); Platelet Count 176 X10^3/uL (150-400); Red Cell Distribution Width 14.9 % (11.6-14.8); White Blood Cell Count 6.4 X10^3/uL (4.5-11.0)
--- NOTE | 2020-05-20 07:01 | P.PN_ITS ---
Subjective Subjective Date Patient Seen: 05/20/20 Time Patient Seen: 07:01 Interval history: The patient dropped something on the floor yesterday and attempted to get on his knees and crawl to pick it up. He had increased pain afterwards but has been able to walk with physical therapy afterwards. Exam Vital Signs (past 8 hours): - 05/20/20 00:00 05/20/20 03:09 05/20/20 04:00 Temperature 98.2 F Pulse Rate 73 Respiratory Rate 16 Blood Pressure 98/54 L Pulse Oximetry 96 97 97 Oxygen Delivery Method Room Air Oxygen Flow Rate 0 Narrative Exam Narrative: Left hip wound is dressed with no drainage on the bandage. Mild swelling of the thigh which is soft. Calf is soft. Light touch and motion are intact in the left lower extremity. Rotation of the leg is pain-free. Objective Labs Result Diagrams: 05/20/20 05:05 05/18/20 05:30 Labs: Laboratory Results - last 24 hr 05/20/20 05:05 WBC 6.4 RBC 2.50 L Hgb 8.3 L Hct 24.0 L MCV 96.2 MCH 33.1 MCHC 34.4 RDW 14.9 H Plt Count 176 Assessment & Plan Post-op Postoperative Procedures: Procedures Operation Date: 05/16/20 08:00 Actual Procedures Side Surgeon p ORIF Hip DHS Left Kevin Miller MD Postoperative day: 4 Postoperative status: doing well, anemia and other Postoperative status narrative: The patient has stabilized his blood loss after surgery with the von Willebrand's factor replacement. He remains anemic but asymptomatic. He attempted to crawl yesterday with increased pain but I do not believe there has been any significant complication based on his exam this morning. Postoperative plan: routine post-op care and discharge Postoperative plan narrative: At this point I believe that the von Willebrand's factor replacement can be discontinued and he can be transferred to nursing home facility today. I would recommend that a hemoglobin and hematocrit be drawn in the next 3-5 days. He should have a follow-up at my office in 10-14 days. If he remains in the nursing home facility in 2 weeks, we can do that appointment by video conference. Time Spent With Patient Time with patient: less than 15 minutes Quality VTE Deep Vein Thrombosis/Pulmonary Embolism Present on Admission: No
--- NOTE | 2020-05-20 07:57 | PM.DS.1 ---
History of Present Illness History of Present Illness Chief complaint: Left Hip Pain Narrative: Oz Bernardo presented today to the ED for a fall he sustained at a friend's house stating was walking out of his house which has 2 concrete steps from the entrance to the driveway. States he slipped, and fell onto his left hip. He was able sit but not stand. He was brought to the ED by EMS due to the left hip pain. He has abrasions on his left jaw and neck stating he also hit those areas when he fell. He denied headache, visual changes, or loosing consciousness. He denies neck pain, chest pain or dyspnea, abdominal pain. He did state his legs have been swelling significantly since his blood sugars have been very high until recently, and that they felt like logs stating he was dragging his left foot when he fell. He has type 2 diabetes, he reports been transition from oral agents to insulin about 3 days ago and was seen in this ED and consulted on on 05/12. He has lower extremity edema which has worsened since January and he attributes to his diabetes, he denies cardiac problems, he denies any history of CHF. He states he has von Willebrand's disease and bled a lot during a dental procedure. Patient states he has had diabetes for 2 years which was controlled with oral antidiabetics until around January of this year. He states he lost 44 lbs, was urinating all the time. He denies a history of current alcohol use, but quit drinking in December of this year. He continues to smoke a pack of cigarettes/day. His PCP is located at [facility] and he lives in [place], though the two visits to the ED occurred while he was visiting a friend in [facility]. On May 12, he presented to the emergency department at the direction of his primary care office when his laboratory findings resulted with a glucose in the 700s. The patient has been dealing with elevated blood glucoses for the past few months. And reports in the past few days his glucose has routinely been above 600. The patient is currently on 2 g of metformin daily, glipizide in the morning. He saw his primary care provider yesterday who also prescribed him insulin which he has not picked up yet. He endorses polyuria and polydipsia, as well as significant weight loss over the past few months despite eating a large amount of food and craving sugary meals. He also has had worsening lower extremity edema over the past few months, but this is been stable recently. Prior to January, he states his blood sugars averaged about 240. On the May, he was consulted by the hospitalist service who recommended he be administered a small amount of regular insulin before leaving the emergency room and a couple of liters of fluid, but the patient did not require admission at that time. They further recommended that he stop taking his Lasix until his blood sugars are more adequately controlled as this is likely making him even more dehydrated and suspected that his cachexia is related to uncontrolled diabetes over the past few months. Starting insulin therapy should not only help to lower his glucose but also help him to regain weight. Temperature 98.6, blood pressure 86/51, heart rate 72, respiratory rate 18, oxygen saturation of 90% on room air, he weighs 63 kg and has a BMI of 17.8. WBC is 7.2, RBC 3.89, hemoglobin 12.9, hematocrit 38, platelet count 259. Repeat chemistries today indicates a sodium of 131, potassium 3.3, chloride 97, CO2 29, creatinine 0.41, BUN 13, GFR is greater than 60, glucose 299, calcium 8.3, magnesium 1.7, total bilirubin 0.7, AST 57, ALT 51, alk-phos 316, albumin 3.3, and COVID-19 was negative. Discharge Providers Provider Date of admission: 05/15/20 10:37 Discharge Date: 05/20/20 Primary care physician: Randa Brooks, JUAREZ, NURSE SUPERVISOR- Consults: 05/15/20 14:58 Consult to Dietitian, Adult Routine Comment: Reason For Exam: recent weight loss, diabetes. 05/16/20 11:29 Consult to Discharge Planning Routine Comment: Consult to Physical Therapy Evaluate & Treat Comment: Physician Instructions: Evaluate and Treat Consult to Respiratory Therapy Evaluate & Treat Comment: Physician Instructions: Evaluate and treat 05/17/20 10:30 Consult to Occupational Therapy Evaluate & Treat Comment: Physician Instructions: Evaluate and treat Discharge provider: Maxim Segundo MD Summary Hospital Course Discharge Diagnosis: 1. Acute pathological left intra trochanteric hip fracture 2. Osteoporosis 3. Von Willebrand's disease 4. Acute blood loss anemia secondary to hip fracture 5. Type 2 diabetes mellitus uncontrolled 6. Hyponatremia 7. Hypokalemia 8. History of alcohol and opiate dependency reported in remission 9. Severe protein calorie malnutrition 10. Lower extremity dependent edema, chronic, bilateral Procedures: Left hip ORIF with dynamic hip screw May 16, [address] Kevin Miller Transfusion 2 units PRBC on 05/18/2020 Hospital Course: 1,Acute pathological left intratrochanteric hip fracture, status post left hip ORIF, present on admission. Active. -Patient presented after ground level fall slipping down stairs on to hard asphalt with left hip pain and inability to ambulate. -Left hip x-ray demonstrated minimally displaced left intertrochanteric hip fracture. -Continue vitamin D3 and calcium supplementation. Patient will need be treated for osteoporosis as an outpatient by PCP or orthopedic surgery. -Orthopedic surgery consulted, Dr. Miller, who performed left hip ORIF. -Continue physical and occupational therapy evaluation and treatment at inpatient rehab. -patient has no evidence of further bleeding, he will receive his last dose of on Martinez brand factor tomorrow per, it is anticipated he will be discharged to [facility] tomorrow. 2. Acute blood loss anemia present on admission. Active. -Initial hemoglobin 12.9 and at baseline. -patient has von Willebrand's disease, see below -transfused 2 units PRBC for hemoglobin 6.6 and hematocrit 19.2 -hemoglobin 8.3 and hematocrit 24.0 on day of discharge -no further evidence of bleeding -repeat CBC in 3 days 3. Von Willebrand's disease, chronic, present on admission. Stable. -Received Von Willebrand factor every 8 hours for 3 days postoperatively which can be discontinued now per ortho 4. Diabetes mellitus type 2, insulin using, uncontrolled, present on admission. Active. -Hemoglobin A1c > 14% on 05/12/2020. -glucose with improved control though still getting some numbers above 200 -Continue Lantus 45 units q.a.m. and metformin 1000 mg b.i.d.. Glipizide discontinued. -Continue [facility] blood glucose checks and high-dose correctional scale insulin. -Continue carbohydrate consistent/heart healthy diet. 5. Hyponatremia and hypokalemia, acuity unclear, present on admission. Resolving. -Initial sodium level 131 and potassium level 2.9. Sodium and potassium trending up. -received potassium replacement. Last serum sodium 131, potassium 4.1 on 05/18/2020. 6. 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 -Patient reports he quiet drinking in 12/2019. He prior to that reports drinking 2-3 malt beverages per day and heavy drinking in his 30s. -He previously had opiate dependence due to back pain on Vicodin and subsequent has requires higher doses of pain medication. -currently still getting oxycodone 10 mg as needed for pain control postop 7. Lower extremity dependent edema, bilateral. Active. -Patient has chronic peripheral edema likely venous stasis -outpatient workup to rule out cirrhosis and CHF was initiated by PCP but has not been completed -Continue home furosemide 20 mg daily. -thigh-high compression stockings 7. Severe protein calorie malnutrition, possibly acute on chronic, present on admission. Active. -BMI 18.7. -Consulted dietitian we appreciate her time and recommendations. Patient is being discharged to acute inpatient rehab at [facility] in [place]. Total time in discharge management of about 40 minutes. Exam Vital Signs (past 8 hours): - 05/20/20 00:00 05/20/20 03:09 05/20/20 04:00 Temperature 98.2 F Pulse Rate 73 Respiratory Rate 16 Blood Pressure 98/54 L Pulse Oximetry 96 97 97 Oxygen Delivery Method Room Air Oxygen Flow Rate 0 Narrative Exam Narrative: General: Alert pleasant and cooperative male in no acute distress Lungs: Clear to auscultation Heart: Regular rhythm without murmur Abdomen: Soft Extremities: Left hip postop dressing clean and dry, bilateral 1 to 2+ pitting edema in lower extremities Neurological: Sensorium intact, nonfocal Objective Labs Result Diagrams: 05/20/20 05:05 05/18/20 05:30 Labs: Laboratory Results - last 24 hr 05/20/20 05:05 WBC 6.4 RBC 2.50 L Hgb 8.3 L Hct 24.0 L MCV 96.2 MCH 33.1 MCHC 34.4 RDW 14.9 H Plt Count 176 Discharge Plan Discharge Plan Patient Disposition: Xfer Inpatient Rehab Other facility: [facility] Consult as needed: Dental, Hearing, Mental health, Podiatry and Vision Discharge orders & Medications Discharge Orders: Discharge (Order); Ordered 05/20/20 Ordered By: Maxim Segundo Prescriptions: New acetaminophen 325 mg Tablet 975 mg PO TID Qty: 90 RF: 0 docusate sodium [DOK] 100 mg Capsule 100 mg PO BID Qty: 60 RF: 0 hydroxyzine pamoate 25 mg Capsule 25 mg PO Q6HR PRN (Reason: Spasms) Qty: 30 RF: 0 Lantus Solostar U-100 Insulin 100 unit/mL (3 mL) Insulin Pen 45 unit SUBCUT DAILY Qty: 15 RF: 0 polyethylene glycol 3350 17 gram Powder In Packet 17 gm PO DAILY Qty: 30 RF: 0 nicotine 21 mg/24 hr Patch 24 Hour 21 mg topical DAILY Qty: 30 RF: 0 oxycodone 5 mg Tablet 5 mg PO Q3HR PRN (Reason: Pain, Moderate (4-6)) Qty: 20 RF: 0 insulin aspart U-100 [Novolog Flexpen U-100 Insulin] 100 unit/mL (3 mL) Insulin Pen 0 unit SUBCUT ACHS Qty: 15 RF: 0 oxycodone 10 mg Tablet 10 mg PO Q3HR PRN (Reason: Pain, Severe (7-10)) Qty: 20 RF: 0 Continued potassium chloride 10 mEq capsule, extended release 10 meq PO QAM RF: 0 furosemide 20 mg tablet 20 mg PO QAM RF: 0 metformin 500 mg tablet extended release 24 hr 1,000 mg PO BID RF: 0 nystatin 100,000 unit/mL suspension 5 ml PO QID Qty: 200 RF: 0 Discontinued glipizide 5 mg tablet 10 mg PO QAM RF: 0 Follow up/Referrals: Kevin Miller MD [Physician] - 2 Weeks (Can be video follow up if at SNF.) Randa Brooks, MSN, NURSE SUPERVISOR-BC [Primary Care Provider] - Discharge Health Status Multidrug resistant organism: No MDRO Precautions: [place] Diet/Activity/Treatments Diet: Carb-consistent/Diabetic Liquid consistency: Normal/Thin Food texture: Regular Other treatments: Labs: CBC 05/23/20 Special [facility] Reason for rehabilitation: Post-operative therapy Rehab type: Physical therapy and Occupational therapy Visit Report/Discharge Packet Instructions: How to Prevent Falls, DI for Open Reduction Internal Fixation Surgery, DI for Postoperative Pain, DI for Prescription Opioid Use Visit Report Forms: Stroke Signs & Symptoms Discharge Data Primary Care Provider: Randa Brooks Quality VTE Deep Vein Thrombosis/Pulmonary Embolism Present on Admission: No
[2020-05-20 08:00] VITALS: BP 113/65; PULSE 74; RESP 16; TEMP 36.8; O2SAT 98
[2020-05-20] MEDS: DOCUSATE 100 MG CAPSULE PO (08:29)
[2020-05-20] MEDS: SODIUM CHLORIDE 0.9% FLUSH 10 ML IV (08:30)
[2020-05-20] MEDS: polyethylene glycoL 3350 17 GM POWD.PACK PO (08:30)
[2020-05-20] MEDS: POTASSIUM CHLORIDE 10 MEQ TAB PO (08:30)
[2020-05-20] MEDS: FUROSEMIDE 20 MG TABLET PO (08:30)
[2020-05-20] MEDS: NYSTATIN SUSP 500,000 UNIT/5 ML UDC 500000 UNIT PO ×2 (08:31→13:31)
[2020-05-20] MEDS: ACETAMINOPHEN 325 MG TABLET 975 MG PO (08:31)
[2020-05-20] MEDS: METFORMIN XR 500 MG TABLET 1000 MG PO (08:31)
[2020-05-20] MEDS: NICOTINE 21 MG PATCH TOP (08:31)
[2020-05-20] MEDS: INSULIN GLARGINE 100 UNIT/ML 3ML PEN 45 UNIT SUBCUT (08:43)
[2020-05-20] MEDS: INSULIN ASPART 100 UNIT/ML INSULN PEN SUBCUT (08:44)
--- NOTE | 2020-05-20 10:03 | CM.DPC ---
DCP cont: Faxed COVID results and discharge summary to [facility] at fax # [phone]. Fax confirmation scanned in. Stormy Santiago, Linda Loss Prevention Research Engineer
--- NOTE | 2020-05-20 10:23 | CM.DPC ---
Addendum entered by Jaimee Jamil LPN 05/20/20 10:37: Medicaid transport time: confirmed now for 1445: all have been updated. [facility] transport will come up to pt's room. Original Note: DCP: continued: Case received, EMR reviewed, checked in with pt and spoke with [facility]/ [facility] rehab grievance coordinator. She confirmed pt's acceptance , needing only a discussion to occur between Dr. Segundo and her pharmacist Rajiv. Dr. Segundo has that cell # and agrees to call him. Pt clarifies that he had no real arrangement made with friends for transport today. He does have Medicaid. Have spoken with [facility] staff: [phone], confirmed that pt has used this service in past (in part from ER to home) and request form has now been completed and faxed: [phone]. Have requested a metal pickling equipment operator time of 1400, after conferring with care team and with [facility]. As per that process: will now wait for fax to be reviewed and a call back from [facility] with confirmation of the metal pickling equipment operator time. DC summary and COVID - test has been faxed to [facility]. Pt and DEEJAY Bruno are updated. Will follow prn until pt leaves.
--- NOTE | 2020-05-20 10:35 | PT.IPTN ---
Current Diagnoses Type 2 diabetes mellitus without complications (05/15/20) Nondisplaced intertrochanteric fracture of left femur, initial encounter for closed fracture (05/15/20) Surgery Performed Operation Date: 05/16/20 08:00 Actual Procedures p ORIF Hip DHS(Left) - Kevin Miller MD Physical Therapy Treatment Note M2 PT-IP Current Condition Start: 05/16/20 12:13 Freq: NEEDED Status: Active Protocol: Document 05/19/20 11:23 TP (Rec: 05/19/20 14:13 TP [id number]) Physical Therapy Current Condition Current Condition Evaluation Date 05/16/20 Treatment Diagnosis ORIF left intertroch femur fracture; difficulty in walking Onset Date 05/15/20 M3 PT-IP Subjective Start: 05/16/20 12:13 Freq: NEEDED Status: Active Protocol: Document 05/20/20 10:30 AW (Rec: 05/20/20 12:16 AW [id number]) Subjective Physical Therapy Visit Type Type Treatment Note Visit Start Time 10:10 Visit Stop Time 10:25 Total Visit Minutes 25 Number of STRIPPING SHOVEL OPERATOR Visits 0 Physical Therapy Visit Comments Patient Comments I'm going to rehab today. Therapy Pain Assessment Pain When Pain Assessed During Mobility Pain Present Pain Present Pain Reported Location Left Hip Intensity 7 Scale Used Numeric (0 - 10) Pain Management Techniques Distraction,Re-positioning, Timing of Activity with Medications M4 PT-IP Mobility and Gait Start: 05/16/20 12:13 Freq: NEEDED Status: Active Protocol: Document 05/20/20 10:30 AW (Rec: 05/20/20 12:16 AW [id number]) PT-Bed Mobility Assessment Supine to Sit Supine to Sit Standby Assistance,Head of Bed Elevated Scooting Scooting to Edge of Bed Standby Assistance PT-Transfer Assessment Sit to and From Stand Sit to and from Stand Minimal Assistance,1 Person Assistance,Use of Upper Extremities Equipment Transfer Assistive Device Gait Belt,Front Wheeled Walker Orthotic/Prosthetic Devices or Brace: No Transfers Transfer Destination Chair,Toilet Transfer Technique pt ambulated with FWW Transfer Ability Level of Assist Contact Guard Assistance,Use of Upper Extremities Comments Mobility Comments Pt reclined in bed upon PT arrival with HOB elevated. Pt completed supine to sit SBA and needed min A x 1 for sit to stand with FWW. Pt ambulated to the toilet CGA with FWW and stood several minutes to void urine. He then felt he needed to sit, requiring CGA to turn to sit on elevated toilet seat. After a few minutes, pt was ready to stand, requiring min A x 1. He proceeded to ambulate for a total of 50' in the halls with FWW CGA. He continues to use vaulting strategy on LLE in gait and presented with increased trunk flexion this encounter due to stomach disturbance. Pt requested return to the room where he transferred back to the toilet seat. Pt agreed to call nursing when ready to head back to the chair. Gait Assessment Gait Gait Assistance Required: Contact Guard Assist,1 Person Assist Distance (Feet) 50 Able to Maintain Weight Bearing Status Yes During Gait Assistive Devices Assistive Device Gait Belt,Front Wheeled Walker Orthotic/Prosthetic Devices or Brace: No Gait Deviations General Gait Pattern Antalgic,Decreased Stride Length,Decreased Feet Clearance,Flexed Trunk,Step-to Gait Factors Limiting Gait Function Factors Limiting Gait Function Decreased Activity Tolerance, Decreased Sensation,Decreased Strength,Limited Range of Motion,Pain,Poor Balance,Poor Safety Awareness Comments Gait Comments see mobility comments. PT-Balance Assessment Sitting Balance and Reactions Static Sitting Balance Ability Normal Dynamic Sitting Balance Ability Good Standing Balance and Reactions Static Standing Balance Ability Good Dynamic Standing Balance Ability Good Device Used FWW M5 PT-IP Objective Assessments Start: 05/16/20 12:13 Freq: NEEDED Status: Active Protocol: Document 05/16/20 15:29 AW (Rec: 05/16/20 16:11 AW [id number]) Orientation Orientation/Cognition Level of Alertness Alert Orientation Name,Day of Week,Place, Situation Language Function Ability No Deficits Noted Safety Awareness Decreased Safety Awareness Gross Range of Motion Upper Extremity ROM Assessment Within Functional Limits Lower Extremity ROM Assessment Left Impaired Strength Upper Extremity Strength Assessment Bilaterally Impaired Shoulder 4/5 Lower Extremity Strength Assessment Bilaterally Impaired Comments Strength Comments R hip 3/5; R knee 4-/5; R ankle 4-/5 Sensation Assessment Sensation Gross Sensation Right LE Impaired,Left LE Impaired Light Touch Impaired Comments Sensation Comments Dull light touch bilateral feet Muscle Tone Muscle Tone WNL Yes M6 PT-IP Treatment Start: 05/16/20 12:13 Freq: NEEDED Status: Active Protocol: Document 05/20/20 10:30 AW (Rec: 05/20/20 12:16 AW [id number]) Physical Therapy Treatment Education Education Provided Weight Bearing Status,Safety M7 PT-IP Assessment and Plan Start: 05/16/20 12:13 Freq: NEEDED Status: Active Protocol: Document 05/20/20 10:30 AW (Rec: 05/20/20 12:16 AW [id number]) PT Summary Assessment and Plan Potential Rehabilitation Potential Good Status of Condition at Evaluation Stable Summary Impairments Pain,ROM,Strength,Balance, Sensation,Bed Mobility, Transfers,Gait,Activity Tolerance Progress Towards Goals Slow Progress due to Pain,Slow Progress due to Medical Issues Assessment Summary Pt not able to tolerate as much activity today due to stomach disturbance. Gait continues to be remarkable for vaulting on the LLE. Pt remains an excellent candidate for rehab. Goals Bed Mobility Goal Independent Transfer Goal Independent,Front Wheeled Walker Gait Goal Independent,Front Wheel Walker Gait Distance 200 Other Goals - up/down 7 steps with unilateral rail SBA Days to Meet Goals 10 Frequency of Treatment Frequency Of Treatment Twice a Day Treatment Plan Physical Therapy Treatment Plan Bed Mobility Training,Transfer Training,Gait Training, Therapeutic Exercise,Balance Retraining,Post Op Education, Discharge Planning,Hot or Cold Pack Other Recommendations and Next Treatment ther ex; gait training with Focus FWW; stairs when able. Recommendations To Nursing Amount of Assist Needed 1 Person Assist Discharge Recommendations PT Discharge Recommendations SNF Rehab,Acute Rehab Other Discharge Recommendations 30/04 assist and daily PT Equipment Needed for Home Before defer to rehab setting Discharge Transportation Needs at Discharge Wheelchair/Cabulance
[2020-05-20 12:00] VITALS: BP 99/59; PULSE 79; RESP 16; TEMP 36.9; O2SAT 98
--- NOTE | 2020-05-20 13:37 | PC.NURSE ---
Addendum entered by Kiana Davis R.N. 05/20/20 15:48: At 1430, EXTRUDER OPERATOR placed thigh high CORBY's stockings on pt prior to discharge. This RN sized stockings as medium, long thigh high. Report given to Yenny zuniga in patient rehab at 1503. Pt left unit at 1455 via [facility] transport wheelchair in no distress with his personal belongings and his own medications. Original Note: DAy Shift- Pt given back his own home medication bottles of Furosemide, Potassium Chloride ER, Nystatin, Glipizide 10mg, Glipizide 5mg, and Metformin
== END 2020-05-20 14:55 | DRG 309 ==
LOC: ED 09:53 → AC 10:39
PROVIDERS: Internal Medicine; Nurse Practitioner Family; Admitting Provider Internal Medicine; Emergency Provider Emergency Medicine; PCP Registered Nurse; Referring Provider Orthopaedic Surgery; Visit Provider Internal Medicine
PROC: 0QH704Z Insertion of Internal Fixation Device into Left Upper Femur, Open Approach (ICD-10-PCS; principal; 2020-05-16 08:00)
DX: M84.452A Pathological fracture, left femur, initial encounter for fracture (principal); E43 Unspecified severe protein-calorie malnutrition; D68.0 Von Willebrand disease; E87.1 Hypo-osmolality and hyponatremia; E11.65 Type 2 diabetes mellitus with hyperglycemia; D62 Acute posthemorrhagic anemia; Z68.1 Body mass index [BMI] 19.9 or less, adult; D63.8 Anemia in other chronic diseases classified elsewhere; E87.6 Hypokalemia; R60.0 Localized edema; F17.210 Nicotine dependence, cigarettes, uncomplicated; F10.21 Alcohol dependence, in remission; F11.21 Opioid dependence, in remission; Z79.4 Long term (current) use of insulin; W10.9XXA Fall (on) (from) unspecified stairs and steps, initial encounter; Z11.59 Encounter for screening for other viral diseases
CPT/HCPCS: 36415; 36430; 71045; 73502; 73552; 76000; 80048; 80053; 82962; 83735; 85025; 85027; 85610; 85730; 86850; 86900; 86901; 87635; 94760; 96365; 96366; 96375; 96376; 97110; 97116; 97162; 97165; 97530; 97535; 99284; P9016; J1170; J1885; J2250; J2405; J2704; J3010; J3480; J7187